=== PATIENT | female | born 1985 | race Hispanic/Latino ===

== ENCOUNTER 2018-01-18 08:13 | Emergency (ER) | payer MEDICARE ==
[2018-01-18 08:24] VITALS: BP 124/75
[2018-01-18] MEDS ORDERED: TYLENOL PO ONE (09:25)
--- NOTE | 2018-01-18 09:25 | Emergency Department Report ---
ED ENT HPI - General Chief complaint: Earache Stated complaint: RIGHT EAR PAIN Time Seen by Provider: 01/18/18 09:18 Source: patient Mode of arrival: Ambulatory Limitations: No Limitations - History of Present Illness Initial comments: 32-year-old female past medical history bipolar disorder, seizures presents with complaint of 2 weeks of persistent right toothache and right earache. Patient denies any pus or blood drainage from either mouth or ear. Patient states she does have a bad cavity in her rear molar on the right side. Denies any difficulty hearing. Denies any ear trauma. Patient is awake alert and oriented 3 speaking in full sentences. No trismus no drooling noted on exam. MD complaint: tooth pain, ear pain Onset/Timin -: week(s) Location: tooth # 1 - Significant dental fracture/cavity here. No abscess Severity scale (0 -10): 5 Quality: aching Consistency: constant Worsens with: eating Context- Dental: poor dental care Associated Symptoms: toothache - Related Data Previous Rx's Medication Instructions Recorded Last Taken Type Acetaminophen/Codeine [Tylenol 1 tab PO Q6H PRN #10 tab 01/18/18 Unknown Rx /Codeine # 3 tab] Amoxicillin [Trimox CAP] 500 mg PO Q8H #30 capsule 01/18/18 Unknown Rx Chlorhexidine Mouthwash [Peridex] 15 ml MM BID #1 bottle 01/18/18 Unknown Rx Ibuprofen [Motrin] 800 mg PO Q8HR PRN #20 tablet 01/18/18 Unknown Rx Allergies Allergy/AdvReac Type Severity Reaction Status Date / Time lamotrigine [From Lamictal] AdvReac Unknown Verified 01/18/18 08:25 topiramate [From Topamax] AdvReac Unknown Verified 01/18/18 08:24 ED Dental HPI - General Chief complaint: Earache Stated complaint: RIGHT EAR PAIN Time Seen by Provider: 01/18/18 09:18 Source: patient Mode of arrival: Ambulatory Limitations: No Limitations - Related Data Previous Rx's Medication Instructions Recorded Last Taken Type Acetaminophen/Codeine [Tylenol 1 tab PO Q6H PRN #10 tab 01/18/18 Unknown Rx /Codeine # 3 tab] Amoxicillin [Trimox CAP] 500 mg PO Q8H #30 capsule 01/18/18 Unknown Rx Chlorhexidine Mouthwash [Peridex] 15 ml MM BID #1 bottle 01/18/18 Unknown Rx Ibuprofen [Motrin] 800 mg PO Q8HR PRN #20 tablet 01/18/18 Unknown Rx Allergies Allergy/AdvReac Type Severity Reaction Status Date / Time lamotrigine [From Lamictal] AdvReac Unknown Verified 01/18/18 08:25 topiramate [From Topamax] AdvReac Unknown Verified 01/18/18 08:24 ED Review of Systems ROS: Stated complaint: RIGHT EAR PAIN Other details as noted in HPI Constitutional: denies: chills, fever Eyes: denies: eye pain, eye discharge, vision change ENT: ear pain, dental pain. denies: throat pain Respiratory: denies: cough, shortness of breath, wheezing Cardiovascular: denies: chest pain, palpitations Endocrine: no symptoms reported Gastrointestinal: denies: abdominal pain, nausea, diarrhea Genitourinary: denies: urgency, dysuria, discharge Musculoskeletal: denies: back pain, joint swelling, arthralgia Skin: denies: rash, lesions Neurological: denies: headache, weakness, paresthesias Psychiatric: denies: anxiety, depression Hematological/Lymphatic: denies: easy bleeding, easy bruising ED Past Medical Hx - Past Medical History Previous Medical History?: Yes Additional medical history: Hx of seizures, bi polar. - Surgical History Past Surgical History?: No - Social History Smoking Status: Current Every Day Smoker Substance Use Type: None - Medications Home Medications: Home Medications Medication Instructions Recorded Confirmed Last Taken Type Acetaminophen/Codeine [Tylenol 1 tab PO Q6H PRN #10 tab 01/18/18 Unknown Rx /Codeine # 3 tab] Amoxicillin [Trimox CAP] 500 mg PO Q8H #30 capsule 01/18/18 Unknown Rx Chlorhexidine Mouthwash [Peridex] 15 ml MM BID #1 bottle 01/18/18 Unknown Rx Ibuprofen [Motrin] 800 mg PO Q8HR PRN #20 tablet 01/18/18 Unknown Rx ED Physical Exam - General Limitations: No Limitations General appearance: alert, in no apparent distress - Head Head exam: Present: atraumatic, normocephalic - Eye Eye exam: Present: normal appearance, PERRL, EOMI - ENT ENT exam: Present: mucous membranes moist - Expanded ENT Exam Expanded TM/Canal exam: Erythema: Right TM, Bulging: Right TM Teeth exam: Present: dental caries, fractured tooth #, dental tenderness # 1 - Fractured, Dental Tenderness - Neck Neck exam: Present: normal inspection, full ROM - Respiratory Respiratory exam: Present: normal lung sounds bilaterally. Absent: respiratory distress - Cardiovascular Cardiovascular Exam: Present: regular rate, normal rhythm. Absent: systolic murmur, diastolic murmur, rubs, gallop - GI/Abdominal GI/Abdominal exam: Present: soft, normal bowel sounds - Extremities Exam Extremities exam: Present: normal inspection - Back Exam Back exam: Present: normal inspection - Neurological Exam Neurological exam: Present: alert, oriented X3 - Psychiatric Psychiatric exam: Present: normal affect, normal mood - Skin Skin exam: Present: warm, dry, intact, normal color. Absent: rash ED Course Vital Signs 01/18/18 08:21 Temperature 97.8 F Pulse Rate 78 Respiratory 18 Rate Blood Pressure 124/75 O2 Sat by Pulse 98 Oximetry ED Medical Decision Making - Medical Decision Making A/P: dental fracture, toothache, dental abscess, otitis media 1- Motrin when necessary, amoxicillin ten-day course, Orajel when necessary, Peridex mouthwash daily basis, short course codeine when necessary 2- I provided patient with information for multiple dental clinics to follow up and stressed the importance of dental follow-up as he has multiple cavities that require dental fixation or instrumentation 3- no clinical signs of facial abscess, no Oziel's angina, no induration or cellulitis of floor of mouth or tongue 4- patient able to tolerate by mouth before discharge 5- no signs of facial infection. Advised patient that if she does not take antibiotics with follow-up with a dentist as soon as possible that a can result in potentially serious or dangerous infection to develop in jaw or face. Patient states that he understood these instructions. I advised patient to return to the ED for any persistent unrelenting nausea or vomiting fever or chills or headaches. Critical care attestation.: If time is entered above; I have spent that time in minutes in the direct care of this critically ill patient, excluding procedure time. ED Disposition Clinical Impression: Toothache, Right ear pain Disposition: TO HOME OR SELFCARE Is pt being admited?: No Does the pt Need Aspirin: No Condition: Stable Instructions: Otitis Media (ED), Toothache (ED), Dental Caries (ED) Prescriptions: Acetaminophen/Codeine [Tylenol /Codeine # 3 tab] 1 tab PO Q6H PRN #10 tab PRN Reason: Pain Amoxicillin [Trimox CAP] 500 mg PO Q8H #30 capsule Chlorhexidine Mouthwash [Peridex] 15 ml MM BID #1 bottle Ibuprofen [Motrin] 800 mg PO Q8HR PRN #20 tablet PRN Reason: Pain Referrals: [facility] [Provider Group] - 3-5 Days MAXX MONTELONGO MD [Staff Physician] - 3-5 Days [facility] [Outside] - 3-5 Days Forms: Work/School Release Form(ED) Time of Disposition: 09:30
== END 2018-01-18 09:44 | disposition home or self-care (01) ==
LOC: ED 08:13
DX: K08.89 Other specified disorders of teeth and supporting structures (principal); H92.01 Otalgia, right ear; F31.9 Bipolar disorder, unspecified; F17.200 Nicotine dependence, unspecified, uncomplicated; Z88.8 Allergy status to other drugs, medicaments and biological substances
CPT/HCPCS: 99282

== ENCOUNTER 2018-01-20 09:56 | Emergency (ER) | payer MEDICARE ==
[2018-01-20] MEDS ORDERED: KEPPRA 1,000 MG/NS 0.75% 100ML 1,000 MG/100 ML BAG IV ONE (10:52)
[2018-01-20] MEDS ORDERED: DILANTIN PO ONE (10:52)
--- NOTE | 2018-01-20 10:58 | Emergency Department Report ---
ED Seizure HPI - General Chief Complaint: Seizure Stated Complaint: SEIZURE Time Seen by Provider: 01/20/18 10:44 Source: EMS Mode of arrival: Stretcher Limitations: No Limitations - History of Present Illness Initial Comments: 32-year-old female history of seizure disorder states ran out of her Keppra and Dilantin 30 days ago here for evaluation of possible seizure. She denies trauma history was that she did have one witnessed tonic-clonic seizure. She denies any headache neck pain chest pain back pain, pain or other complaints she is awake alert oriented 3 at this time stating that she ran out of her seizure medicine she doesn't have follow-up Dr. MACDONALD Complaint: seizure, possible seizure -: Gradual, hour(s) Description of Episode: loss of consciousness, tonic-clonic movement Seizure History: known seizure disorder Possible Precipitating Event: other (noncompliance) Associated Symptoms: denies other symptoms, other (denies trauma). denies: chest pain, confusion, cough, diaphoresis, fever/chills, loss of appetite, malaise, rash, shortness of breath, syncope, weakness, tongue injury, shoulder dislocation - Related Data Previous Rx's Medication Instructions Recorded Last Taken Type Acetaminophen/Codeine [Tylenol 1 tab PO Q6H PRN #10 tab 01/18/18 Unknown Rx /Codeine # 3 tab] Amoxicillin [Trimox CAP] 500 mg PO Q8H #30 capsule 01/18/18 Unknown Rx Chlorhexidine Mouthwash [Peridex] 15 ml MM BID #1 bottle 01/18/18 Unknown Rx Ibuprofen [Motrin] 800 mg PO Q8HR PRN #20 tablet 01/18/18 Unknown Rx Phenytoin (25 mg/ml) [Dilantin] 100 mg PO Q8HR #30 tab 01/20/18 Unknown Rx levETIRAcetam [Keppra XR TAB] 1,000 mg PO QDAY #30 tab.er.24h 01/20/18 Unknown Rx Allergies Allergy/AdvReac Type Severity Reaction Status Date / Time lamotrigine [From Lamictal] AdvReac Unknown Verified 01/18/18 08:25 topiramate [From Topamax] AdvReac Unknown Verified 01/18/18 08:24 ED Review of Systems ROS: Stated complaint: SEIZURE Other details as noted in HPI Comment: All other systems reviewed and negative Constitutional: denies: diaphoresis, fever, malaise Eyes: denies: eye discharge, vision change ENT: denies: dental pain, hearing loss, epistaxis Respiratory: denies: cough, orthopnea, shortness of breath, SOB with exertion, SOB at rest, stridor Cardiovascular: denies: chest pain, palpitations, dyspnea on exertion, orthopnea Gastrointestinal: denies: abdominal pain, nausea, vomiting, diarrhea, constipation, hematemesis, melena Neurological: denies: headache, weakness, numbness, paresthesias, confusion, abnormal gait, vertigo Hematological/Lymphatic: denies: easy bruising ED Past Medical Hx - Past Medical History Hx CVA: Yes (no deficits) Hx Heart Attack/AMI: Yes Hx Seizures: Yes Hx Psychiatric Treatment: (anxiety) Additional medical history: Hx of seizures, bi polar. - Social History Smoking Status: Current Every Day Smoker Substance Use Type: Alcohol, Marijuana - Medications Home Medications: Home Medications Medication Instructions Recorded Confirmed Last Taken Type Acetaminophen/Codeine [Tylenol 1 tab PO Q6H PRN #10 tab 01/18/18 Unknown Rx /Codeine # 3 tab] Amoxicillin [Trimox CAP] 500 mg PO Q8H #30 capsule 01/18/18 Unknown Rx Chlorhexidine Mouthwash [Peridex] 15 ml MM BID #1 bottle 01/18/18 Unknown Rx Ibuprofen [Motrin] 800 mg PO Q8HR PRN #20 tablet 01/18/18 Unknown Rx Phenytoin (25 mg/ml) [Dilantin] 100 mg PO Q8HR #30 tab 01/20/18 Unknown Rx levETIRAcetam [Keppra XR TAB] 1,000 mg PO QDAY #30 tab.er.24h 01/20/18 Unknown Rx ED Physical Exam - General Limitations: No Limitations General appearance: alert, in no apparent distress, anxious - Head Head exam: Present: atraumatic, normocephalic - Eye Eye exam: Present: normal appearance, PERRL, EOMI - ENT ENT exam: Present: normal exam, normal orophraynx - Neck Neck exam: Present: normal inspection. Absent: tenderness, meningismus - Respiratory Respiratory exam: Present: normal lung sounds bilaterally. Absent: respiratory distress, wheezes, rales, rhonchi, stridor - Cardiovascular Cardiovascular Exam: Present: regular rate, normal rhythm - GI/Abdominal GI/Abdominal exam: Present: soft. Absent: distended, tenderness, guarding, rebound, rigid, mass, pulsatile mass - Extremities Exam Extremities exam: Present: normal inspection, normal capillary refill. Absent: pedal edema, joint swelling, calf tenderness - Back Exam Back exam: Present: normal inspection, full ROM. Absent: tenderness, CVA tenderness (R), CVA tenderness (L), muscle spasm, paraspinal tenderness, vertebral tenderness, rash noted - Neurological Exam Neurological exam: Present: alert, oriented X3, CN II-XII intact. Absent: motor sensory deficit (no trauma) ED Course Vital Signs 01/20/18 01/20/18 09:57 10:15 Temperature 98.7 F Pulse Rate 97 H Respiratory 18 18 Rate Blood Pressure 126/87 O2 Sat by Pulse 98 98 Oximetry ED Medical Decision Making - Lab Data Result diagrams: 01/20/18 11:17 01/20/18 11:17 - Medical Decision Making Patient was loaded with Keppra and Dilantin she will be given refills on those. She is not suicidal or homicidal but is saying that she has intermittent depression is requesting mental health follow-up. She will also be given a primary care physician for follow-up. She had no signs of trauma laboratory studies were essentially unremarkable she did have a mildly elevated white count but is not thought to be due to infection. She has no stiff neck she is not toxic there is no headache this does not appear to be annon infectious leukocytosis but does appear to be a stress-related she is stable for a outpt follow-up Critical care attestation.: If time is entered above; I have spent that time in minutes in the direct care of this critically ill patient, excluding procedure time. ED Disposition Clinical Impression: Recurrent seizures, Noncompliance Disposition: DC-01 TO HOME OR SELFCARE Is pt being admited?: No Condition: Stable Instructions: Recurrent Seizures Adult (ED) Additional Instructions: Return for alarming symptoms take her medicines see the doctor listed he will need to see a neurologist of your choice Prescriptions: levETIRAcetam [Keppra XR TAB] 1,000 mg PO QDAY #30 tab.er.24h Phenytoin (25 mg/ml) [Dilantin] 100 mg PO Q8HR #30 tab Referrals: PRIMARY CAREMD [Primary Care Provider] - 3-5 Days MARIE SANDERS MD [Staff Physician] - 3-5 Days Time of Disposition: 12:59
[2018-01-20 11:36] LABS: Basophils % (Auto) 0.3 % (0.0-1.8); Hemoglobin 13.4 gm/dl (10.1-14.3); Lymphocytes # (Auto) 2.6 K/mm3 (1.2-5.4); Lymphocytes % (Auto) 19.3 % (13.4-35.0); Mean Corpuscular HGB Conc 33 % (30-34); Mean Corpuscular Hemoglobin 28 pg (28-32); Mean Corpuscular Volume 85 fl (79-97); Monocytes # (Auto) 1.1 K/mm3 (0.0-0.8); Monocytes % (Auto) 8.3 % (0.0-7.3); Platelet Count 317 K/mm3 (140-440); Red Blood Count 4.84 M/mm3 (3.65-5.03); Red Cell Distribution Width 14.4 % (13.2-15.2)
[2018-01-20 11:58] LABS: Alanine Aminotransferase 14 units/L (7-56); Albumin 4.3 g/dL (3.9-5); BUN/Creatinine Ratio 13; Blood Urea Nitrogen 12 mg/dL (7-17); Calcium 9.9 mg/dL (8.4-10.2); Hemolysis Index 2
[2018-01-20 13:21] VITALS: BP 142/92
== END 2018-01-20 13:20 | disposition home or self-care (01) ==
LOC: ED 09:56
DX: G40.909 Epilepsy, unspecified, not intractable, without status epilepticus (principal); I25.2 Old myocardial infarction; F17.200 Nicotine dependence, unspecified, uncomplicated; F12.10 Cannabis abuse, uncomplicated; Z88.8 Allergy status to other drugs, medicaments and biological substances
CPT/HCPCS: 36415; 80053; 85025; 93005; 93010; 96365; 99283; J1953

== ENCOUNTER 2018-01-21 19:42 | Emergency (ER) | payer MEDICARE ==
[2018-01-21] MEDS ORDERED: ATIVAN ONE (20:19)
[2018-01-21] MEDS ORDERED: ATIVAN IM ONE (20:28)
--- NOTE | 2018-01-21 20:37 | Emergency Department Report ---
ED Psych HPI - General Chief Complaint: Psych Stated Complaint: MH EVAL Time Seen by Provider: 01/21/18 20:31 Source: patient, EMS Mode of arrival: Stretcher - History of Present Illness Initial Comments: Here yesterday for seizures back today states that her boyfriend's pain deported she has a history of depression anxiety posttraumatic stress bipolar and schizophrenia with multiple previous admits at [facility] and [facility]. She says she is having a nervous breakdown. She says she needs to be committed she is worried she might hurt herself or someone else she does admit to noncompliance with her meds which are lithium Zyprexa Klonopin and Zoloft N [place] she recently started her seizure meds Dilantidanielle and Eileen MACDONALD Complaint: suicidal ideation, feels depressed Associated Psychiatric Symptoms: auditory hallucinations Context: significant life stressor - Related Data Previous Rx's Medication Instructions Recorded Last Taken Type Acetaminophen/Codeine [Tylenol 1 tab PO Q6H PRN #10 tab 01/18/18 Unknown Rx /Codeine # 3 tab] Amoxicillin [Trimox CAP] 500 mg PO Q8H #30 capsule 01/18/18 Unknown Rx Chlorhexidine Mouthwash [Peridex] 15 ml MM BID #1 bottle 01/18/18 Unknown Rx Ibuprofen [Motrin] 800 mg PO Q8HR PRN #20 tablet 01/18/18 Unknown Rx Phenytoin (25 mg/ml) [Dilantin] 100 mg PO Q8HR #30 tab 01/20/18 Unknown Rx Phenytoin [Dilantin] 500 mg PO BID #30 capsule 01/20/18 Unknown Rx levETIRAcetam [Keppra XR TAB] 1,000 mg PO QDAY #30 tab.er.24h 01/20/18 Unknown Rx Allergies Allergy/AdvReac Type Severity Reaction Status Date / Time lamotrigine [From Lamictal] AdvReac Unknown Verified 01/18/18 08:25 topiramate [From Topamax] AdvReac Unknown Verified 01/18/18 08:24 ED Review of Systems ROS: Stated complaint: MH EVAL Other details as noted in HPI Comment: Unobtainable due to pts medical conditions ED Past Medical Hx - Past Medical History Hx CVA: Yes (no deficits) Hx Heart Attack/AMI: Yes Hx Seizures: Yes Hx Psychiatric Treatment: Yes (anxiety, bipolar, schizophrenia, PTSD) Additional medical history: Hx of seizures, bi polar. - Social History Smoking Status: Current Every Day Smoker Substance Use Type: Alcohol, Marijuana - Medications Home Medications: Home Medications Medication Instructions Recorded Confirmed Last Taken Type Acetaminophen/Codeine [Tylenol 1 tab PO Q6H PRN #10 tab 01/18/18 Unknown Rx /Codeine # 3 tab] Amoxicillin [Trimox CAP] 500 mg PO Q8H #30 capsule 01/18/18 Unknown Rx Chlorhexidine Mouthwash [Peridex] 15 ml MM BID #1 bottle 01/18/18 Unknown Rx Ibuprofen [Motrin] 800 mg PO Q8HR PRN #20 tablet 01/18/18 Unknown Rx Phenytoin (25 mg/ml) [Dilantin] 100 mg PO Q8HR #30 tab 01/20/18 Unknown Rx Phenytoin [Dilantin] 500 mg PO BID #30 capsule 01/20/18 Unknown Rx levETIRAcetam [Keppra XR TAB] 1,000 mg PO QDAY #30 tab.er.24h 01/20/18 Unknown Rx ED Physical Exam - General Limitations: No Limitations General appearance: alert, in distress (anxious with dimple) - Head Head exam: Present: atraumatic, normocephalic - Eye Eye exam: Present: PERRL, EOMI - ENT ENT exam: Present: normal exam, normal orophraynx - Neck Neck exam: Present: normal inspection. Absent: tenderness, meningismus - Respiratory Respiratory exam: Present: normal lung sounds bilaterally. Absent: respiratory distress, wheezes, rales, rhonchi, stridor, chest wall tenderness, accessory muscle use, decreased breath sounds, prolonged expiratory - Cardiovascular Cardiovascular Exam: Present: normal rhythm, tachycardia - GI/Abdominal GI/Abdominal exam: Present: soft. Absent: distended, tenderness, guarding, rebound, rigid, mass, pulsatile mass - Extremities Exam Extremities exam: Present: normal capillary refill. Absent: pedal edema, joint swelling, calf tenderness - Back Exam Back exam: Present: normal inspection. Absent: CVA tenderness (L), muscle spasm - Neurological Exam Neurological exam: Present: alert, CN II-XII intact. Absent: motor sensory deficit - Psychiatric Psychiatric exam: Present: agitated, anxious, manic, other (acute psychosis with auditory hallucinations) - Skin Skin exam: Present: warm. Absent: urticaria, vesicles, petechiae, pallor, abrasion, ecchymosis ED Course Vital Signs 01/21/18 20:01 Temperature 98.4 F Pulse Rate 92 H Respiratory 22 Rate Blood Pressure 125/75 O2 Sat by Pulse 98 Oximetry ED Medical Decision Making - Lab Data Result diagrams: 01/21/18 20:26 01/21/18 20:26 - EKG Data -: EKG Interpreted by Me EKG shows normal: sinus rhythm - EKG Data Interpretation: nonspecific ST-T wave rose mary - Medical Decision Making Patient with elevated lithium level I.8 patient will need admitted for evaluation for lithium toxicity she is placed on 1013 for suicidal ideation and acute psychosis with gravely disabled. Case was discussed with Dr. Del Valle will evaluate for lithium toxicity for further evaluation and medical clearance Critical care attestation.: If time is entered above; I have spent that time in minutes in the direct care of this critically ill patient, excluding procedure time. ED Disposition Clinical Impression: [place] toxicity, Acute psychosis Disposition: DC-09 OP ADMIT IP TO THIS HOSP Is pt being admited?: Yes Condition: Stable Referrals: PRIMARY CARE, [Primary Care Provider] - 3-5 Days Time of Disposition: 23:28
[2018-01-21 20:39] LABS: Basophils # (Auto) 0.1 K/mm3 (0.0-0.1); Basophils % (Auto) 0.9 % (0.0-1.8); Eosinophils % (Auto) 0.1 % (0.0-4.3); Hematocrit 39.2 % (30.3-42.9); Hemoglobin 13.4 gm/dl (10.1-14.3); Lymphocytes # (Auto) 3.4 K/mm3 (1.2-5.4); Lymphocytes % (Auto) 37.3 % (13.4-35.0); Mean Corpuscular HGB Conc 34 % (30-34); Mean Corpuscular Hemoglobin 28 pg (28-32); Mean Corpuscular Volume 82 fl (79-97); Monocytes # (Auto) 0.8 K/mm3 (0.0-0.8); Monocytes % (Auto) 8.9 % (0.0-7.3); Platelet Count 287 K/mm3 (140-440); Red Blood Count 4.76 M/mm3 (3.65-5.03); Red Cell Distribution Width 14.8 % (13.2-15.2)
[2018-01-21] MEDS ORDERED: BENADRYL IM ONE ×2 (20:40→23:15)
[2018-01-21 20:53] LABS: BUN/Creatinine Ratio 18; Blood Urea Nitrogen 14 mg/dL (7-17); Calcium 9.1 mg/dL (8.4-10.2); Hemolysis Index 5
[2018-01-21] MEDS ORDERED: NACL 0.9% 1000 ML 1,000 ML IV ONE ×2 (23:12)
[2018-01-22] MEDS ORDERED: HALDOL IM ONE (00:40)
[2018-01-22 08:39] VITALS: BP 119/78
== END 2018-01-22 09:05 | disposition admitted as inpatient to this hospital (09) ==
LOC: ED 19:42
DX: T50.905A Adverse effect of unspecified drugs, medicaments and biological substances, initial encounter (principal); R56.9 Unspecified convulsions; Y92.89 Other specified places as the place of occurrence of the external cause; F23 Brief psychotic disorder; I25.2 Old myocardial infarction; F17.200 Nicotine dependence, unspecified, uncomplicated; F12.10 Cannabis abuse, uncomplicated
CPT/HCPCS: 36415; 80048; 80178; 84703; 85025; 93005; 93010; 96360; 96361; 96372; 99285; G0480; J1200; J1630; J2060; J7030; 80320

== ENCOUNTER 2018-03-14 07:51 | Emergency (ER) | payer MEDICARE ==
[2018-03-14] MEDS ORDERED: NACL 0.9% 1000 ML 1,000 ML IV ONE ×2 (07:57→08:48)
[2018-03-14 07:58] VITALS: BP 127/87
[2018-03-14 08:19] LABS: Bacteria,Urine 1+ /HPF (Negative); Bilirubin,Urine NEG (Negative); Blood,Urine NEG (Negative); Color,Urine Yellow (Yellow); Protein,Urine <15 mg/dL mg/dL (Negative); Urobilinogen,Urine < 2.0 mg/dL (<2.0); WBC,Urine < 1.0 /HPF (0.0-6.0)
[2018-03-14 08:40] LABS: Basophils # (Auto) 0.1 K/mm3 (0.0-0.1); Basophils % (Auto) 0.7 % (0.0-1.8); Lymphocytes # (Auto) 2.8 K/mm3 (1.2-5.4); Mean Corpuscular HGB Conc 35 % (30-34); Mean Corpuscular Hemoglobin 29 pg (28-32); Mean Corpuscular Volume 82 fl (79-97); Monocytes # (Auto) 0.8 K/mm3 (0.0-0.8); Monocytes % (Auto) 8.6 % (0.0-7.3); Platelet Count 441 K/mm3 (140-440); Red Blood Count 4.89 M/mm3 (3.65-5.03); Red Cell Distribution Width 16.7 % (13.2-15.2)
[2018-03-14 08:47] LABS: Alanine Aminotransferase 40 units/L (7-56); BUN/Creatinine Ratio 8; Blood Urea Nitrogen 5 mg/dL (7-17); Calcium 9.9 mg/dL (8.4-10.2); Hemolysis Index 72; Lipase 21 units/L (13-60)
[2018-03-14] MEDS ORDERED: ZOFRAN IV ONE (08:49)
--- NOTE | 2018-03-14 08:56 | Emergency Department Report ---
ED N/V/D HPI - General Chief complaint: Nausea/Vomiting/Diarrhea Stated complaint: ABDOMINAL PAIN Time Seen by Provider: 03/14/18 08:47 Source: patient, EMS Mode of arrival: Ambulatory Limitations: No Limitations - History of Present Illness Initial comments: 32-year-old woman presents with 2 day history of repeated bouts of nausea and vomiting. She's had no diarrhea to speak of. She's had a known ill contact, with similar symptoms, I reports that this friend was hospitalized, but has not spoken with her, does not know the reason for hospitalization exactly. She has minor left lower quadrant discomfort, which is mild and achy, nonradiating, been 3-4 out of 10, no flank pain, no back pain, but no fever chills or diaphoresis. She has no prior history of gastrointestinal problems, but past medical history is significant for seizure disorder, for which she takes levetiracetam as well as phenytoin, and reports that she has still been able to keep both of these medicines down, with last dose yesterday evening. She also has bipolar disorder , but has not been having any symptoms of depression, suicide, or manic behavior patterns. - Related Data Previous Rx's Medication Instructions Recorded Last Taken Type Acetaminophen/Codeine [Tylenol 1 tab PO Q6H PRN #10 tab 01/18/18 Unknown Rx /Codeine # 3 tab] Amoxicillin [Trimox CAP] 500 mg PO Q8H #30 capsule 01/18/18 Unknown Rx Chlorhexidine Mouthwash [Peridex] 15 ml MM BID #1 bottle 01/18/18 Unknown Rx Ibuprofen [Motrin] 800 mg PO Q8HR PRN #20 tablet 01/18/18 Unknown Rx Phenytoin (25 mg/ml) [Dilantin] 100 mg PO Q8HR #30 tab 01/20/18 Unknown Rx Phenytoin [Dilantin] 500 mg PO BID #30 capsule 01/20/18 Unknown Rx levETIRAcetam [Keppra XR TAB] 1,000 mg PO QDAY #30 tab.er.24h 01/20/18 Unknown Rx Omeprazole 20 mg PO DAILY #14 tablet. 03/14/18 Unknown Rx Ondansetron [Zofran ODT TAB] 8 mg PO Q8HR PRN #10 tab.rapdis 03/14/18 Unknown Rx Allergies Allergy/AdvReac Type Severity Reaction Status Date / Time lamotrigine [From Lamictal] AdvReac Unknown Verified 01/18/18 08:25 topiramate [From Topamax] AdvReac Unknown Verified 01/18/18 08:24 ED Review of Systems ROS: Stated complaint: ABDOMINAL PAIN Other details as noted in HPI Comment: All other systems reviewed and negative Constitutional: no symptoms reported Eyes: denies: eye pain, eye discharge, vision change ENT: denies: ear pain, throat pain Respiratory: denies: cough, shortness of breath, wheezing Cardiovascular: denies: chest pain, palpitations Endocrine: no symptoms reported Gastrointestinal: abdominal pain, nausea, vomiting (left lower quadrant, mild and achy). denies: diarrhea, hematemesis, melena, hematochezia Genitourinary: denies: urgency, dysuria Musculoskeletal: denies: back pain Skin: denies: rash Neurological: denies: headache, weakness, paresthesias Psychiatric: denies: anxiety, depression Hematological/Lymphatic: denies: easy bleeding, easy bruising ED Past Medical Hx - Past Medical History Previous Medical History?: Yes Hx CVA: Yes (no deficits) Hx Heart Attack/AMI: Yes Hx Seizures: Yes Hx Psychiatric Treatment: Yes (anxiety, bipolar, schizophrenia, PTSD) Additional medical history: Hx of seizures, bi polar. - Surgical History Past Surgical History?: Yes Additional Surgical History: Right oophorectomy - Social History Smoking Status: Current Every Day Smoker Substance Use Type: None, Marijuana, Prescribed - Medications Home Medications: Home Medications Medication Instructions Recorded Confirmed Last Taken Type Acetaminophen/Codeine [Tylenol 1 tab PO Q6H PRN #10 tab 01/18/18 Unknown Rx /Codeine # 3 tab] Amoxicillin [Trimox CAP] 500 mg PO Q8H #30 capsule 01/18/18 Unknown Rx Chlorhexidine Mouthwash [Peridex] 15 ml MM BID #1 bottle 01/18/18 Unknown Rx Ibuprofen [Motrin] 800 mg PO Q8HR PRN #20 tablet 01/18/18 Unknown Rx Phenytoin (25 mg/ml) [Dilantin] 100 mg PO Q8HR #30 tab 01/20/18 Unknown Rx Phenytoin [Dilantin] 500 mg PO BID #30 capsule 01/20/18 Unknown Rx levETIRAcetam [Keppra XR TAB] 1,000 mg PO QDAY #30 tab.er.24h 01/20/18 Unknown Rx Omeprazole 20 mg PO DAILY #14 tablet. 03/14/18 Unknown Rx Ondansetron [Zofran ODT TAB] 8 mg PO Q8HR PRN #10 tab.rapdis 03/14/18 Unknown Rx ED Physical Exam - General Limitations: No Limitations General appearance: alert, in no apparent distress - Head Head exam: Present: atraumatic - Eye Eye exam: Present: PERRL, EOMI - ENT ENT exam: Present: normal exam, mucous membranes dry - Neck Neck exam: Present: normal inspection, full ROM. Absent: tenderness, meningismus - Respiratory Respiratory exam: Present: normal lung sounds bilaterally. Absent: wheezes, rales, rhonchi, chest wall tenderness - Cardiovascular Cardiovascular Exam: Present: regular rate, normal heart sounds - GI/Abdominal GI/Abdominal exam: Present: soft, tenderness (minimal discomfort to palpation left lower quadrant, without rebound), normal bowel sounds. Absent: guarding, rebound - Rectal Rectal exam: Present: deferred - Extremities Exam Extremities exam: Present: normal inspection, full ROM. Absent: tenderness - Back Exam Back exam: Present: normal inspection. Absent: CVA tenderness (R), CVA tenderness (L) - Neurological Exam Neurological exam: Present: alert, oriented X3, CN II-XII intact. Absent: motor sensory deficit - Psychiatric Psychiatric exam: Present: normal affect, normal mood. Absent: agitated, anxious, manic - Skin Skin exam: Present: warm, dry. Absent: cyanosis, diaphoretic, petechiae, ecchymosis ED Course Vital Signs 03/14/18 03/14/18 07:52 10:02 Temperature 36.6 C Pulse Rate 82 Respiratory 18 18 Rate Blood Pressure 127/87 O2 Sat by Pulse 96 98 Oximetry - Reevaluation(s) Reevaluation #1: 03/14/18 10:46 Patient felt improved with cessation of nausea after treatment, and was given most of a liter of normal saline, reported this made her cold, and discontinued at her request due to this. ED Medical Decision Making - Lab Data Result diagrams: 03/14/18 08:12 03/14/18 08:12 - Medical Decision Making Patient has been stable during her emergency department visit, has had relief of symptoms, with no further nausea or vomiting, and I believe she is stable for discharge home, with oral rehydration with electrolyte rich fluids. We will give prescription for antacids and antiemetics, with rest, and follow-up with doctor in 2-3 days. Critical Care Time: No Critical care attestation.: If time is entered above; I have spent that time in minutes in the direct care of this critically ill patient, excluding procedure time. ED Disposition Clinical Impression: Acute gastroenteritis Disposition: TO HOME OR SELFCARE Is pt being admited?: No Does the pt Need Aspirin: No Condition: Stable Instructions: Gastroenteritis (ED), Dehydration (ED) Prescriptions: Omeprazole 20 mg PO DAILY #14 tablet. Ondansetron [Zofran ODT TAB] 8 mg PO Q8HR PRN #10 tab.rapdis PRN Reason: Nausea Time of Disposition: 10:50
== END 2018-03-14 11:00 | disposition home or self-care (01) ==
LOC: ED 07:51
DX: K52.9 Noninfective gastroenteritis and colitis, unspecified (principal); I25.2 Old myocardial infarction; F20.9 Schizophrenia, unspecified; F17.200 Nicotine dependence, unspecified, uncomplicated; F31.9 Bipolar disorder, unspecified; G40.909 Epilepsy, unspecified, not intractable, without status epilepticus; F12.10 Cannabis abuse, uncomplicated; Z86.73 Personal history of transient ischemic attack (TIA), and cerebral infarction without residual deficits
CPT/HCPCS: 36415; 80053; 80177; 80185; 81001; 83690; 85025; 96361; 96374; 99284; J2405; J7030

== ENCOUNTER 2018-10-25 19:45 | Emergency (ER) | payer MEDICARE ==
[2018-10-25 20:31] LABS: Basophils # (Auto) 0.1 K/mm3 (0.0-0.1); Basophils % (Auto) 0.9 % (0.0-1.8); Hematocrit 34.4 % (30.3-42.9); Lymphocytes # (Auto) 2.2 K/mm3 (1.2-5.4); Lymphocytes % (Auto) 30.2 % (13.4-35.0); Mean Corpuscular HGB Conc 35 % (30-34); Mean Corpuscular Volume 78 fl (79-97); Monocytes # (Auto) 0.6 K/mm3 (0.0-0.8); Monocytes % (Auto) 8.2 % (0.0-7.3); Platelet Count 313 K/mm3 (140-440); Red Blood Count 4.45 M/mm3 (3.65-5.03); Red Cell Distribution Width 18.9 % (13.2-15.2)
[2018-10-25 20:49] LABS: Alanine Aminotransferase 23 units/L (7-56); BUN/Creatinine Ratio 11; Blood Urea Nitrogen 8 mg/dL (7-17); Calcium 9.6 mg/dL (8.4-10.2); Hemolysis Index 4
[2018-10-25] MEDS ORDERED: SUBLIMAZE IV ONE ×2 (21:29→23:17)
[2018-10-25] MEDS ORDERED: NACL 0.9% 1000 ML 1,000 ML IV ONE (21:29)
[2018-10-25] MEDS ORDERED: ZOFRAN IV ONE (21:29)
[2018-10-25] MEDS ORDERED: BENADRYL IV ONE (21:30)
--- NOTE | 2018-10-25 21:34 | Emergency Department Report ---
HPI - General Chief Complaint: Abdominal Pain Time Seen by Provider: 10/25/18 21:23 - HPI HPI: Room 6 The patient is a 33-year-old female presented with a chief complaint vaginal bleeding, pelvic pain and back pain. She states she has not had her menses in approximately 5 months until approximately 4 days ago she began having vaginal bleeding. Patient states she did not approximate 4 pads per day. Patient states over the past 2 days she's had pain in the right groin and right back. Patient describes her pain as a pressure. Patient denies dysuria or fever. Patient denies nausea or vomiting. Patient gets her pain a score of 9/10 Location: [See above] Duration: [See above] Quality: Pressure Severity: 9/10 Modifying factors: [see above] Context: [see above] Mode of transportation: [not driving] ED Past Medical Hx - Past Medical History Hx CVA: Yes (no deficits) Hx Heart Attack/AMI: Yes Hx Seizures: Yes Hx Psychiatric Treatment: Yes (anxiety, bipolar, schizophrenia, PTSD) Additional medical history: Hx of seizures, bi polar. - Surgical History Additional Surgical History: Right oophorectomy - Family History Family history: no significant - Social History Smoking Status: Current Every Day Smoker (1 pack per day) Substance Use Type: Alcohol (occasional), Methamphetamines - Medications Home Medications: Home Medications Medication Instructions Recorded Confirmed Last Taken Type Acetaminophen/Codeine [Tylenol 1 tab PO Q6H PRN #10 tab 01/18/18 Unknown Rx /Codeine # 3 tab] Amoxicillin [Trimox CAP] 500 mg PO Q8H #30 capsule 01/18/18 Unknown Rx Chlorhexidine Mouthwash [Peridex] 15 ml MM BID #1 bottle 01/18/18 Unknown Rx Ibuprofen [Motrin] 800 mg PO Q8HR PRN #20 tablet 01/18/18 Unknown Rx Phenytoin (25 mg/ml) [Dilantin] 100 mg PO Q8HR #30 tab 01/20/18 Unknown Rx Phenytoin [Dilantin] 500 mg PO BID #30 capsule 01/20/18 Unknown Rx levETIRAcetam [Keppra XR TAB] 1,000 mg PO QDAY #30 tab.er.24h 01/20/18 Unknown Rx Omeprazole 20 mg PO DAILY #14 tablet. 03/14/18 Unknown Rx Ondansetron [Zofran ODT TAB] 8 mg PO Q8HR PRN #10 tab.rapdis 03/14/18 Unknown Rx HYDROcodone/APAP 5-325 [[place] 1 - 2 each PO Q6HR PRN #14 tablet 10/25/18 Unknown Rx 5/325] Ibuprofen [Motrin 800 MG tab] 800 mg PO Q8HR PRN #20 tablet 10/25/18 Unknown Rx medroxyPROGESTERone ACETATE 5 mg PO QDAY #10 tablet 10/25/18 Unknown Rx [Provera] ED Review of Systems ROS: Stated complaint: RT SIDE PAIN/BLEEDING Other details as noted in HPI Constitutional: denies: fever Eyes: denies: eye pain ENT: denies: throat pain Respiratory: no symptoms reported Cardiovascular: denies: chest pain Endocrine: no symptoms reported Gastrointestinal: abdominal pain. denies: nausea, vomiting Genitourinary: abnormal menses. denies: dysuria Musculoskeletal: back pain Neurological: denies: headache Physical Exam - Physical Exam Vital Signs: Vital Signs 10/25/18 19:55 Temperature 98.1 F Pulse Rate 107 H Respiratory 16 Rate Blood Pressure 148/82 O2 Sat by Pulse 98 Oximetry Physical Exam: GENERAL: The patient is well-developed well-nourished female lying on stretcher not appearing to be in acute distress. [] HEENT: Normocephalic. Atraumatic. Extraocular motions are intact. Patient has moist mucous membranes. NECK: Supple. Trachea midline CHEST/LUNGS: Clear to auscultation. There is no respiratory distress noted. HEART/CARDIOVASCULAR: Regular. There is no tachycardia. There is no gallop rub or murmur. ABDOMEN: Abdomen is soft, with mild discomfort to palpation in the right lower quadrant. No rebound or guarding. Patient has normal bowel sounds. There is no abdominal distention. SKIN: There is no rash. There is no edema. There is no diaphoresis. NEURO: The patient is awake, alert, and oriented. The patient is cooperative. The patient has normal speech MUSCULOSKELETAL: There is no evidence of acute injury. ED Course Vital Signs 10/25/18 19:55 Temperature 98.1 F Pulse Rate 107 H Respiratory 16 Rate Blood Pressure 148/82 O2 Sat by Pulse 98 Oximetry ED Medical Decision Making - Lab Data Result diagrams: 10/25/18 20:11 10/25/18 20:11 Laboratory Tests 10/25/18 10/25/18 10/25/18 20:11 20:11 20:11 WBC 7.1 RBC 4.45 Hgb 12.0 Hct 34.4 MCV 78 L MCH 27 L MCHC 35 H RDW 18.9 H Plt Count 313 Lymph % (Auto) 30.2 [place] % (Auto) 8.2 H Eos % (Auto) 0.0 Baso % (Auto) 0.9 Lymph # 2.2 [place] # 0.6 Eos # 0.0 Baso # 0.1 Seg Neutrophils % 60.7 Seg Neutrophils # 4.3 Sodium 140 Potassium 4.2 Chloride 103.6 Carbon Dioxide 22 Anion Gap 19 BUN 8 Creatinine 0.7 Estimated GFR > 60 BUN/Creatinine Ratio 11 Glucose 113 H Calcium 9.6 Total Bilirubin 0.20 AST 18 ALT 23 Alkaline Phosphatase 77 Total Creatine Kinase Total Protein 7.3 Albumin 4.0 Albumin/Globulin Ratio 1.2 HCG, Qual Negative Urine Color Urine Turbidity Urine pH Ur Specific [place] Urine Protein Urine Glucose (UA) Urine Ketones Urine Blood Urine Nitrite Urine Bilirubin Urine Urobilinogen Ur Leukocyte Esterase Urine WBC (Auto) Urine RBC (Auto) U Epithel Cells (Auto) Urine Bacteria (Auto) Urine Mucus Phenytoin 10/25/18 10/25/18 10/25/18 21:07 22:04 22:25 WBC RBC Hgb Hct MCV MCH MCHC RDW Plt Count Lymph % (Auto) [place] % (Auto) Eos % (Auto) Baso % (Auto) Lymph # [place] # Eos # Baso # Seg Neutrophils % Seg Neutrophils # Sodium Potassium Chloride Carbon Dioxide Anion Gap BUN Creatinine Estimated GFR BUN/Creatinine Ratio Glucose Calcium Total Bilirubin AST ALT Alkaline Phosphatase Total Creatine Kinase 46 Total Protein Albumin Albumin/Globulin Ratio HCG, Qual Urine Color Yellow Urine Turbidity Slightly-cloudy Urine pH 5.0 Ur Specific [place] 1.027 Urine Protein 30 mg/dl Urine Glucose (UA) Neg Urine Ketones Neg Urine Blood Lg Urine Nitrite Neg Urine Bilirubin Neg Urine Urobilinogen < 2.0 Ur Leukocyte Esterase Neg Urine WBC (Auto) 3.0 Urine RBC (Auto) 4.0 U Epithel Cells (Auto) 14.0 H Urine Bacteria (Auto) 1+ Urine Mucus Few Phenytoin 0.8 L - Radiology Data Radiology results: report reviewed (CT abdomen and pelvis, pelvic ultrasound), image reviewed (CT abdomen and pelvis, pelvic ultrasound) Findings [address] [address] Cat Scan Report Signed Patient: GABRIELLA WEEKS MR#: [id number] : 1985 Acct:[id number] Age/Sex: 33 / F ADM Date: 10/25/18 Loc: ED Attending Dr: Ordering Physician: BRIDGET DUNCAN MD Date of Service: 10/25/18 Procedure(s): CT abdomen pelvis wo con Accession Number(s): [id number] cc: BRIDGET DUNCAN MD FINAL REPORT EXAM: CT ABDOMEN PELVIS WO CON HISTORY: right flank pain TECHNIQUE: CT abdomen and pelvis without contrast PRIORS: None. FINDINGS: No acute abnormality identified in the lung bases. No focal abnormality identified within the liver parenchyma. The spleen demonstrates normal size and attenuation. No pancreatic abnormalities seen. There is horseshoe kidney present. No evidence for nephrolithiasis or hydronephrosis The adrenal glands are unremarkable. Abdominal aorta is normal in caliber. No pathologically enlarged lymph nodes are identified. No signs of free fluid or free air No evidence of small bowel dilatation. No evidence of colonic dilatation. No pericolonic inflammatory change seen. Appendix is identified and is unremarkable. IMPRESSION: Horseshoe kidney noted No evidence for obstructive uropathy Transcribed By: [facility] Dictated By: LISY ZAMUDIO MD Electronically Authenticated By: LISY ZAMUDIO MD Signed Date/Time: 10/25/182306 DD/ 04 TD/TT: 10/25/182304 [address] [address] Ultrasound Report Signed Patient: GABRIELLA WEEKS MR#: [id number] : 1985 Acct:[id number] Age/Sex: 33 / F ADM Date: 10/25/18 Loc: ED Attendjonah gonzales Dr: Ordering Physician: BRIDGET DUNCAN MD Date of Service: 10/25/18 Procedure(s): US transvaginal Accession Number(s): [id number] cc: BRIDGET DUNCAN MD FINAL REPORT EXAM: US TRANSVAGINAL HISTORY: vaginal bleeding, right pelvic pain TECHNIQUE: Ultrasound pelvis transvaginal PRIORS: None. FINDINGS: Uterus measures 7.8 x 4.6 x 4.7 centimeters. No focal myometrial abnormality identified. Endometrial thickness is 0.7 centimeters Left ovary is 2.4 x 1.7 x 2.5 centimeters. Normal vascular flow seen on pulsed and color Doppler evaluation The right ovary was not identified sonographically. There is history of prior right oophorectomy No free fluid identified within the cul-de-sac IMPRESSION: Status post right oophorectomy Normal sonographic appearance of the left ovary and uterus Transcribed By: QUYNH Dictated By: LISY ZAMUDIO MD Electronically Authenticated By: LISY ZAMUDIO MD Signed Date/Time: 10/25/182337 DD/ 35 TD/TT: 10/25/182335 - Medical Decision Making Patient also given a prescription for Provera but admonished not to begin prescription yet unless her vaginal bleeding increases over the next 3 days - Differential Diagnosis menorrhagia, renal colic, UTI, uterine fibroid, ovarian cyst Critical care attestation.: If time is entered above; I have spent that time in minutes in the direct care of this critically ill patient, excluding procedure time. ED Disposition Clinical Impression: Acute abdominal pain, Menses painful Disposition: - TO HOME OR SELFCARE Is pt being admited?: No Does the pt Need Aspirin: No Condition: Stable Instructions: Abdominal Pain (ED) Additional Instructions: Return to the emergency department immediately should you develop worsening symptoms, fever, inability to tolerate food or liquid or any other concerns. Prescriptions: HYDROcodone/APAP 5-325 [[place] 5/325] 1 - 2 each PO Q6HR PRN #14 tablet PRN Reason: Pain Ibuprofen [Motrin 800 MG tab] 800 mg PO Q8HR PRN #20 tablet PRN Reason: Pain, Moderate (4-6) medroxyPROGESTERone ACETATE [Provera] 5 mg PO QDAY #10 tablet Referrals: GISELA CAMERON MD [Primary Care Provider] - 3-5 Days your, IT TEACHER [Other] - 3-5 Days Time of Disposition: 23:50
[2018-10-25 21:59] LABS: Bacteria,Urine 1+ /HPF (Negative); Bilirubin,Urine NEG (Negative); Blood,Urine LG (Negative); Color,Urine Yellow (Yellow); Mucus,Urine FEW /HPF; Urobilinogen,Urine < 2.0 mg/dL (<2.0)
--- NOTE | 2018-10-25 23:07 | Cat Scan Report ---
FINAL REPORT EXAM: CT ABDOMEN PELVIS WO CON HISTORY: right flank pain TECHNIQUE: CT abdomen and pelvis without contrast PRIORS: None. FINDINGS: No acute abnormality identified in the lung bases. No focal abnormality identified within the liver parenchyma. The spleen demonstrates normal size and attenuation. No pancreatic abnormalities seen. There is horseshoe kidney present. No evidence for nephrolithiasis or hydronephrosis The adrenal glands are unremarkable. Abdominal aorta is normal in caliber. No pathologically enlarged lymph nodes are identified. No signs of free fluid or free air No evidence of small bowel dilatation. No evidence of colonic dilatation. No pericolonic inflammatory change seen. Appendix is identified an d is unremarkable. IMPRESSION: Horseshoe kidney noted No evidence for obstructive uropathy
--- NOTE | 2018-10-25 23:38 | Ultrasound Report ---
FINAL REPORT EXAM: US TRANSVAGINAL HISTORY: vaginal bleeding, right pelvic pain TECHNIQUE: Ultrasound pelvis transvaginal PRIORS: None. FINDINGS: Uterus measures 7.8 x 4.6 x 4.7 centimeters. No focal myometrial abnormality identified. Endometrial thickness is 0.7 centimeters Left ovary is 2.4 x 1.7 x 2.5 centimeters. Normal vascular flow seen on pulsed and color Doppler eval uation The right ovary was not identified sonographically. There is history of prior right oophorectomy No free fluid identified within the cul-de-sac IMPRESSION: Status post right oophorectomy Normal sonographic appearance of the left ovary and uterus
--- NOTE | 2018-10-25 23:39 | Ultrasound Report ---
FINAL REPORT EXAM: US PELVIS DUPLEX DOPPLER COMP HISTORY: vaginal bleeding, right pelvic pain TECHNIQUE: Ultrasound pelvis transabdominal PRIORS: None. FINDINGS: Uterus measures 7.8 x 4.6 x 4.7 centimeters. No focal myometrial abnormality identified. Endometrial thickness is 0.7 centimeters Left ovary is 2.4 x 1.7 x 2.5 centimeters. Normal vascular flow seen on pulsed and color Doppler eval uation The right ovary was not identified sonographically. There is history of prior right oophorectomy No free fluid identified within the cul-de-sac IMPRESSION: Status post right oophorectomy Normal sonographic appearance of the left ovary and uterus
[2018-10-26 00:06] VITALS: BP 122/74
== END 2018-10-26 00:06 | disposition home or self-care (01) ==
LOC: ED 19:45
DX: N94.6 Dysmenorrhea, unspecified (principal); F31.9 Bipolar disorder, unspecified; F41.9 Anxiety disorder, unspecified; F20.9 Schizophrenia, unspecified; F43.10 Post-traumatic stress disorder, unspecified; F17.200 Nicotine dependence, unspecified, uncomplicated; Z90.721 Acquired absence of ovaries, unilateral
CPT/HCPCS: 36415; 74176; 76830; 80053; 80185; 81001; 82550; 84703; 85025; 93005; 93010; 93975; 96374; 96375; 96376; 99284; J1200; J2405; J3010; J7030

== ENCOUNTER 2019-02-09 17:28 | Emergency (ER) | payer MEDICARE ==
[2019-02-09] MEDS ORDERED: TORADOL IV ONE (17:48)
--- NOTE | 2019-02-09 17:53 | Emergency Department Report ---
ED Seizure HPI - General Chief Complaint: Seizure Stated Complaint: SEIZURE/FALL Time Seen by Provider: 02/09/19 17:39 Source: patient, EMS Mode of arrival: Stretcher Limitations: No Limitations - History of Present Illness Initial Comments: 33-year-old female with a past history of obesity, CVA without residual deficits, seizures, PTSD, schizophrenia, and bipolar disorder presents to the hospital with complaints of fall and secondary seizure. Patient was walking around in [facility] when she slipped on oil on the floor. She fell backwards striking her head. When she sat up in case he is then had a seizure. Patient denies tongue laceration or urinary incontinence. She is compliant with her twice a day Dilantin 200 mg dose was last dosed this a.m. Patient complains of headache, lower back, and left knee pain that is moderate in intensity, co nstant, worse with movement. She denies neck pain, focal weakness, or focal numbness. Patient states she was just released from prison last night after being incarcerated for 3 months. - Related Data Previous Rx's Medication Instructions Recorded Last Taken Type Acetaminophen/Codeine [Tylenol 1 tab PO Q6H PRN #10 tab 01/18/18 Unknown Rx /Codeine # 3 tab] Amoxicillin [Trimox CAP] 500 mg PO Q8H #30 capsule 01/18/18 Unknown Rx Chlorhexidine Mouthwash [Peridex] 15 ml MM BID #1 bottle 01/18/18 Unknown Rx Ibuprofen [Motrin] 800 mg PO Q8HR PRN #20 tablet 01/18/18 Unknown Rx Phenytoin (25 mg/ml) [Dilantin] 100 mg PO Q8HR #30 tab 01/20/18 Unknown Rx Phenytoin [Dilantin] 500 mg PO BID #30 capsule 01/20/18 Unknown Rx levETIRAcetam [Keppra XR TAB] 1,000 mg PO QDAY #30 tab.er.24h 01/20/18 Unknown Rx Omeprazole 20 mg PO DAILY #14 tablet. 03/14/18 Unknown Rx Ondansetron [Zofran ODT TAB] 8 mg PO Q8HR PRN #10 tab.rapdis 03/14/18 Unknown Rx HYDROcodone/APAP 5-325 [[place] 1 - 2 each PO Q6HR PRN #14 tablet 10/25/18 Unknown Rx 5/325] Ibuprofen [Motrin 800 MG tab] 800 mg PO Q8HR PRN #20 tablet 10/25/18 Unknown Rx medroxyPROGESTERone ACETATE 5 mg PO QDAY #10 tablet 10/25/18 Unknown Rx [Provera] Ibuprofen [Motrin] 800 mg PO Q8HR PRN #30 tablet 02/09/19 Unknown Rx Phenytoin [Dilantin] 300 mg PO BID 30 Days capsule 02/09/19 Unknown Rx Allergies Allergy/AdvReac Type Severity Reaction Status Date / Time lamotrigine [From Lamictal] AdvReac Unknown Verified 01/18/18 08:25 topiramate [From Topamax] AdvReac Unknown Verified 01/18/18 08:24 ED Review of Systems ROS: Stated complaint: SEIZURE/FALL Other details as noted in HPI Comment: All other systems reviewed and negative ED Past Medical Hx - Past Medical History Previous Medical History?: Yes Hx CVA: Yes (no deficits) Hx Heart Attack/AMI: Yes Hx Seizures: Yes Hx Psychiatric Treatment: Yes (anxiety, bipolar, schizophrenia, PTSD) Additional medical history: Hx of seizures, bi polar. - Surgical History Past Surgical History?: Yes Additional Surgical History: Right oophorectomy - Social History Smoking Status: Current Every Day Smoker (1 pack per day) Substance Use Type: Alcohol (occasional), Methamphetamines - Medications Home Medications: Home Medications Medication Instructions Recorded Confirmed Last Taken Type Acetaminophen/Codeine [Tylenol 1 tab PO Q6H PRN #10 tab 01/18/18 Unknown Rx /Codeine # 3 tab] Amoxicillin [Trimox CAP] 500 mg PO Q8H #30 capsule 01/18/18 Unknown Rx Chlorhexidine Mouthwash [Peridex] 15 ml MM BID #1 bottle 01/18/18 Unknown Rx Ibuprofen [Motrin] 800 mg PO Q8HR PRN #20 tablet 01/18/18 Unknown Rx Phenytoin (25 mg/ml) [Dilantin] 100 mg PO Q8HR #30 tab 01/20/18 Unknown Rx Phenytoin [Dilantin] 500 mg PO BID #30 capsule 01/20/18 Unknown Rx levETIRAcetam [Keppra XR TAB] 1,000 mg PO QDAY #30 tab.er.24h 01/20/18 Unknown Rx Omeprazole 20 mg PO DAILY #14 tablet. 03/14/18 Unknown Rx Ondansetron [Zofran ODT TAB] 8 mg PO Q8HR PRN #10 tab.rapdis 03/14/18 Unknown Rx HYDROcodone/APAP 5-325 [[place] 1 - 2 each PO Q6HR PRN #14 tablet 10/25/18 Unknown Rx 5/325] Ibuprofen [Motrin 800 MG tab] 800 mg PO Q8HR PRN #20 tablet 10/25/18 Unknown Rx medroxyPROGESTERone ACETATE 5 mg PO QDAY #10 tablet 10/25/18 Unknown Rx [Provera] Ibuprofen [Motrin] 800 mg PO Q8HR PRN #30 tablet 02/09/19 Unknown Rx Phenytoin [Dilantin] 300 mg PO BID 30 Days capsule 02/09/19 Unknown Rx ED Physical Exam - General Limitations: No Limitations - Other Other exam information: General: No limitations, patient is alert in no acute distress Head exam: Atraumatic, normocephalic Eyes exam: Normal appearance, pupils equal reactive to light, extraocular movements intact ENT: Moist mucous membrane, normal oropharynx Neck exam: Normal inspection, full range of motion, no meningismus nontender, c- collar removed Respiratory exam: Clear to auscultation bilateral, no wheezes, rales, crackles Cardiovascular: Normal rate and rhythm Abdomen: Soft, nondistended, and nontender, with normal bowel sounds, no rebound, or guarding Extremity: Full range of motion normal inspection no deformity, medial left right knee pain with palpation Back: Normal Inspection, full range of motion, mid lower back tenderness without deformity, ecchymosis, step off Neurologic: Alert, oriented to self, place, month, and year, cranial nerves intact, no motor or sensory deficit Psychiatric: normal affect, normal mood Skin: Warm, dry, intact ED Course Vital Signs 02/09/19 02/09/19 17:44 19:28 Temperature 98.1 F 98.4 F Pulse Rate 75 88 Respiratory 17 16 Rate Blood Pressure 135/61 Blood Pressure 135/61 137/63 [Left] O2 Sat by Pulse 99 100 Oximetry ED Medical Decision Making - Lab Data Result diagrams: 02/09/19 18:06 02/09/19 18:06 Lab Results 02/09/19 02/09/19 02/09/19 Range/Units 18:06 18:06 18:06 WBC 5.9 (4.5-11.0) K/mm3 RBC 4.10 (3.65-5.03) M/mm3 Hgb 10.9 (10.1-14.3) gm/dl Hct 33.2 (30.3-42.9) % MCV 81 (79-97) fl MCH 27 L (28-32) pg MCHC 33 (30-34) % RDW 18.6 H (13.2-15.2) % Plt Count 290 (140-440) K/mm3 Lymph % (Auto) 25.7 (13.4-35.0) % [place] % (Auto) 8.8 H (0.0-7.3) % Eos % (Auto) 0.0 (0.0-4.3) % Baso % (Auto) 0.5 (0.0-1.8) % Lymph # 1.5 (1.2-5.4) K/mm3 [place] # 0.5 (0.0-0.8) K/mm3 Eos # 0.0 (0.0-0.4) K/mm3 Baso # 0.0 (0.0-0.1) K/mm3 Seg Neutrophils % 65.0 (40.0-70.0) % Seg Neutrophils # 3.9 (1.8-7.7) K/mm3 Sodium 137 (137-145) mmol/L Potassium 4.1 (3.6-5.0) mmol/L Chloride 104.1 (98-107) mmol/L Carbon Dioxide 21 L (22-30) mmol/L Anion Gap 16 mmol/L BUN 9 (7-17) mg/dL Creatinine 0.7 (0.7-1.2) mg/dL Estimated GFR > 60 ml/min BUN/Creatinine Ratio 13 % Glucose 97 (65-100) mg/dL POC Glucose (70-105) Calcium 8.6 (8.4-10.2) mg/dL Magnesium (1.7-2.3) mg/dL HCG, Qual (Negative) Phenytoin 6.6 L (10.0-20.0) ug/mL 02/09/19 02/09/19 02/09/19 Range/Units 18:06 18:06 20:10 WBC (4.5-11.0) K/mm3 RBC (3.65-5.03) M/mm3 Hgb (10.1-14.3) gm/dl Hct (30.3-42.9) % MCV (79-97) fl MCH (28-32) pg MCHC (30-34) % RDW (13.2-15.2) % Plt Count (140-440) K/mm3 Lymph % (Auto) (13.4-35.0) % [place] % (Auto) (0.0-7.3) % Eos % (Auto) (0.0-4.3) % Baso % (Auto) (0.0-1.8) % Lymph # (1.2-5.4) K/mm3 [place] # (0.0-0.8) K/mm3 Eos # (0.0-0.4) K/mm3 Baso # (0.0-0.1) K/mm3 Seg Neutrophils % (40.0-70.0) % Seg Neutrophils # (1.8-7.7) K/mm3 Sodium (137-145) mmol/L Potassium (3.6-5.0) mmol/L Chloride (98-107) mmol/L Carbon Dioxide (22-30) mmol/L Anion Gap mmol/L BUN (7-17) mg/dL Creatinine (0.7-1.2) mg/dL Estimated GFR ml/min BUN/Creatinine Ratio % Glucose (65-100) mg/dL POC Glucose 94 (70-105) Calcium (8.4-10.2) mg/dL Magnesium 2.00 (1.7-2.3) mg/dL HCG, Qual Negative (Negative) Phenytoin (10.0-20.0) ug/mL - Radiology Data Radiology results: report reviewed PROCEDURE: CT HEAD/BRAIN WO CON TECHNIQUE: Computerized tomography of the head was performed without contrast material. CT DOSE LENGTH PRODUCT: 920.5 mGycm HISTORY: FELL AND HIT BACK OF HEAD AT [facility] [place], AND BACK PAIN. COMPARISONS: None . FINDINGS: Unenhanced CT of the brain was performed and demonstrates no acute intracranial hemorrhage, extra-axial fluid collection, midline shift or mass effect. The ventricles and basal cisterns are not effaced. The mastoid air cells and middle ears appear clear. There is no evidence of acute sinusitis. The bony calvarium appears intact. IMPRESSION: No acute intracranial hemorrhage PROCEDURE: CT LUMBAR SPINE WO CON HISTORY: FELL AT [facility], LBP. FINDINGS: Unenhanced CT of the lumbar spine was performed and data was reformatted into sagittal and coronal planes. These images demonstrate no fracture or malalignment of the lumbar spine. There are endplate Schmorl's nodes in all levels from T12-L1 to L4-L5. There is no evidence of central canal stenosis and significant neural foraminal narrowing or nerve root impingement. IMPRESSION: No fracture or malalignment of the lumbar spine EXAM: XR KNEE 3V LT HISTORY: pain after fall TECHNIQUE: 3 views COMPARISON: None FINDINGS: No fracture or dislocation. The joint spaces are maintained. No suprapatellar joint effusion. IMPRESSION: No fracture or dislocation. EXAM: XR KNEE 3V LT HISTORY: pain after fall TECHNIQUE: 3 views COMPARISON: None FINDINGS: No fracture or dislocation. The joint spaces are maintained. No suprapatellar joint effusion. IMPRESSION: No fracture or dislocation. - Medical Decision Making Nurses were unable to establish IV access after multiple attempts. Patient declined EJ placement and therefore received oral and IM medications instead. 300 mg of by mouth Dilantin will be instructed to take her 200 mg dose prior to bedtime then restart her 200 twice a day dosing. No acute injury identified on imaging studies ortho f/u for knee injury, crutches and knee immobilizer neuro for sz pt usually takes dilantin 200mg bid at 4:30 am and pm. no sz while in prison on this dose - Differential Diagnosis intracranial hemorrhage, seizure, medical noncompliance, fracture, contusio Critical Care Time: No Critical care attestation.: If time is entered above; I have spent that time in minutes in the direct care of this critically ill patient, excluding procedure time. ED Disposition Clinical Impression: Seizure, Fall, Strain of left knee, Back strain Disposition: TO HOME OR SELFCARE Is pt being admited?: No Does the pt Need Aspirin: No Condition: Stable Instructions: Recurrent Seizures Adult (ED), Low Back Strain (ED), Knee Sprain (ED) Additional Instructions: Take the medication as prescribed. Follow up with your doctor or the clinic/doctor provided. Return if symptoms worsen as indicated by your discha rge instructions Prescriptions: Phenytoin [Dilantin] 300 mg PO BID 30 Days capsule Ibuprofen [Motrin] 800 mg PO Q8HR PRN #30 tablet PRN Reason: Pain , Severe (7-10) Referrals: [facility] LEFTY PATEL MD [Primary Care Provider] - 3-5 Days MARIBEL CORONA MD [Staff Physician] - 3-5 Days (neurology) SHAWN ROSA MD [Staff Physician] - 3-5 Days (neurology) PASTORA MELLO MD [Staff Physician] - 3-5 Days (orthopedics) Time of Disposition: 20:57
[2019-02-09 18:20] LABS: Basophils % (Auto) 0.5 % (0.0-1.8); Hematocrit 33.2 % (30.3-42.9); Hemoglobin 10.9 gm/dl (10.1-14.3); Lymphocytes # (Auto) 1.5 K/mm3 (1.2-5.4); Lymphocytes % (Auto) 25.7 % (13.4-35.0); Mean Corpuscular HGB Conc 33 % (30-34); Mean Corpuscular Volume 81 fl (79-97); Monocytes # (Auto) 0.5 K/mm3 (0.0-0.8); Monocytes % (Auto) 8.8 % (0.0-7.3); Platelet Count 290 K/mm3 (140-440); Red Cell Distribution Width 18.6 % (13.2-15.2)
[2019-02-09] MEDS ORDERED: TORADOL IM ONE (18:35)
[2019-02-09 18:41] LABS: BUN/Creatinine Ratio 13; Blood Urea Nitrogen 9 mg/dL (7-17); Calcium 8.6 mg/dL (8.4-10.2); Hemolysis Index 5
[2019-02-09] MEDS ORDERED: DILANTIN PO ONE (19:08)
--- NOTE | 2019-02-09 19:19 | XRay Report ---
EXAM: XR KNEE 3V LT HISTORY: pain after fall TECHNIQUE: 3 views COMPARISON: None FINDINGS: No fracture or dislocation. The joint spaces are maintained. No suprapatellar joint effusion. IMPRESSION: No fracture or dislocation. This document is electronically signed by Linden Davis MD., February 09 2019 07:17:32 PM ET
--- NOTE | 2019-02-09 20:11 | Cat Scan Report ---
PROCEDURE: CT HEAD/BRAIN WO CON TECHNIQUE: Computerized tomography of the head was performed without contrast material. CT DOSE LENGTH PRODUCT: 920.5 mGycm HISTORY: FELL AND HIT BACK OF HEAD AT [facility]. [place], AND BACK PAIN. COMPARISONS: None . FINDINGS: Unenhanced CT of the brain was performed and demonstrates no acute intracranial hemorrhage, extra-axial fluid collection, midline shift or mass effect. The ventricles and basal cisterns are no t effaced. The mastoid air cells and middle ears appear clear. There is no evidence of acute sinusitis. The bony calvarium appears intact. IMPRESSION: No acute intracranial hemorrhage This document is electronically signed by Yousuf Ventura MD., February 09 2019 08:09:58 PM ET
--- NOTE | 2019-02-09 20:13 | Cat Scan Report ---
PROCEDURE: CT LUMBAR SPINE WO CON HISTORY: FELL AT [facility], LBP. FINDINGS: Unenhanced CT of the lumbar spine was performed and data was reformatted into sagittal and coronal planes. These images demonstrate no fracture or malalignment of the lumbar spine. There are endplate Schmorl' s nodes in all levels from T12-L1 to L4-L5. There is no evidence of central canal stenosis and signif icant neural foraminal narrowing or nerve root impingement. IMPRESSION: No fracture or malalignment of the lumbar spine This document is electronically signed by Yousuf Ventura MD., February 09 2019 08:11:39 PM ET
[2019-02-09 21:39] VITALS: BP 140/71
== END 2019-02-09 21:40 | disposition home or self-care (01) ==
LOC: ED 17:28
DX: S86.912A Strain of unspecified muscle(s) and tendon(s) at lower leg level, left leg, initial encounter (principal); S39.012A Strain of muscle, fascia and tendon of lower back, initial encounter; I25.2 Old myocardial infarction; F17.200 Nicotine dependence, unspecified, uncomplicated; F15.90 Other stimulant use, unspecified, uncomplicated; Z88.8 Allergy status to other drugs, medicaments and biological substances; Z86.73 Personal history of transient ischemic attack (TIA), and cerebral infarction without residual deficits; Z79.899 Other long term (current) drug therapy; Z90.721 Acquired absence of ovaries, unilateral; W01.0XXA Fall on same level from slipping, tripping and stumbling without subsequent striking against object, initial encounter; Y93.89 Activity, other specified; Y92.89 Other specified places as the place of occurrence of the external cause; Y99.8 Other external cause status
CPT/HCPCS: 29505; 36415; 70450; 72131; 73562; 80048; 80185; 82962; 83735; 84703; 85025; 96372; 99285; J1885

== ENCOUNTER 2019-05-13 20:02 | Emergency (ER) | payer MEDICARE ==
--- NOTE | 2019-05-13 20:46 | Emergency Department Report ---
ED Anxiety HPI - General Stated Complaint: ANXIETY/BACK PAIN/FALL Time Seen by Provider: 05/13/19 20:25 - History of Present Illness Initial Comments: 33-year-old female with history of bipolar disorder, PTSD, hypotension, seizure disorder presents to ED by EMS. 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 Patient states afterward, she began to feel as if she might have a seizure. Patient states "I don't know if it was a real seizure, pseudoseizure, or what." Patient states her psychiatrist previously had her taking Dilantin, however she is now under the care of a neurologist who has taken her off of Dilantin. Patient states she will be undergoing an EEG study to see if she is actually having seizures. Patient also reports she sustained a fall 2 months ago. Is currently under the care of his surgeons orthopedics, and had a physical therapy appointment today. Patient states she is upset about the fact that she has not received any pain medications from them, and feels as if she cannot work while she is in pain, which led to her argument with her boss. Currently, patient states she will use which she had was an anxiety attack while in her car. Bystanders called 911, and patient was transported to the ER. Patient is requesting something for pain and anxiety. MD Complaint: anxiety -: This evening Place: other (in her car) Previous History of Same: Yes Severity: moderate Quality: improving, similar to prior episodes Provoking factors: emotional stress, work/job stress Improves With: nothing Worsens With: nothing - Related Data Home Medications: Previous Rx's Medication Instructions Recorded Last Taken Type Acetaminophen/Codeine [Tylenol 1 tab PO Q6H PRN #10 tab 01/18/18 Unknown Rx /Codeine # 3 tab] Amoxicillin [Trimox CAP] 500 mg PO Q8H #30 capsule 01/18/18 Unknown Rx Chlorhexidine Mouthwash [Peridex] 15 ml MM BID #1 bottle 01/18/18 Unknown Rx Ibuprofen [Motrin] 800 mg PO Q8HR PRN #20 tablet 01/18/18 Unknown Rx Phenytoin (25 mg/ml) [Dilantin] 100 mg PO Q8HR #30 tab 01/20/18 Unknown Rx Phenytoin [Dilantin] 500 mg PO BID #30 capsule 01/20/18 Unknown Rx levETIRAcetam [Keppra XR TAB] 1,000 mg PO QDAY #30 tab.er.24h 01/20/18 Unknown Rx Omeprazole 20 mg PO DAILY #14 tablet. 03/14/18 Unknown Rx Ondansetron [Zofran ODT TAB] 8 mg PO Q8HR PRN #10 tab.rapdis 03/14/18 Unknown Rx HYDROcodone/APAP 5-325 [[place] 1 - 2 each PO Q6HR PRN #14 tablet 10/25/18 Unknown Rx 5/325] Ibuprofen [Motrin 800 MG tab] 800 mg PO Q8HR PRN #20 tablet 10/25/18 Unknown Rx medroxyPROGESTERone ACETATE 5 mg PO QDAY #10 tablet 10/25/18 Unknown Rx [Provera] Ibuprofen [Motrin] 800 mg PO Q8HR PRN #30 tablet 02/09/19 Unknown Rx Phenytoin [Dilantin] 300 mg PO BID 30 Days capsule 02/09/19 Unknown Rx Allergies/Adverse Reactions: Allergies Allergy/AdvReac Type Severity Reaction Status Date / Time lamotrigine [From Lamictal] AdvReac Unknown Verified 05/13/19 20:49 topiramate [From Topamax] AdvReac Unknown Verified 05/13/19 20:49 ED Review of Systems ROS: Stated complaint: ANXIETY/BACK PAIN/FALL Other details as noted in HPI Comment: All other systems reviewed and negative Respiratory: denies: shortness of breath Cardiovascular: denies: chest pain Musculoskeletal: back pain Psychiatric: anxiety. denies: homicidal thoughts, suicidal thoughts ED Past Medical Hx - Past Medical History Hx CVA: Yes (no deficits) Hx Heart Attack/AMI: Yes Hx Seizures: Yes Hx Psychiatric Treatment: Yes (anxiety, bipolar, schizophrenia, PTSD) Additional medical history: Hx of seizures, bi polar. - Surgical History Additional Surgical History: Right oophorectomy - Social History Smoking Status: Current Every Day Smoker (1 pack per day) Substance Use Type: Alcohol (occasional), Methamphetamines - Medications Home Medications: Home Medications Medication Instructions Recorded Confirmed Last Taken Type Acetaminophen/Codeine [Tylenol 1 tab PO Q6H PRN #10 tab 01/18/18 Unknown Rx /Codeine # 3 tab] Amoxicillin [Trimox CAP] 500 mg PO Q8H #30 capsule 01/18/18 Unknown Rx Chlorhexidine Mouthwash [Peridex] 15 ml MM BID #1 bottle 01/18/18 Unknown Rx Ibuprofen [Motrin] 800 mg PO Q8HR PRN #20 tablet 01/18/18 Unknown Rx Phenytoin (25 mg/ml) [Dilantin] 100 mg PO Q8HR #30 tab 01/20/18 Unknown Rx Phenytoin [Dilantin] 500 mg PO BID #30 capsule 01/20/18 Unknown Rx levETIRAcetam [Keppra XR TAB] 1,000 mg PO QDAY #30 tab.er.24h 01/20/18 Unknown Rx Omeprazole 20 mg PO DAILY #14 tablet.dr 03/14/18 Unknown Rx Ondansetron [Zofran ODT TAB] 8 mg PO Q8HR PRN #10 tab.rapdis 03/14/18 Unknown Rx HYDROcodone/APAP 5-325 [[place] 1 - 2 each PO Q6HR PRN #14 tablet 10/25/18 Unknown Rx 5/325] Ibuprofen [Motrin 800 MG tab] 800 mg PO Q8HR PRN #20 tablet 10/25/18 Unknown Rx medroxyPROGESTERone ACETATE 5 mg PO QDAY #10 tablet 10/25/18 Unknown Rx [Provera] Ibuprofen [Motrin] 800 mg PO Q8HR PRN #30 tablet 02/09/19 Unknown Rx Phenytoin [Dilantin] 300 mg PO BID 30 Days capsule 02/09/19 Unknown Rx ED Physical Exam - General General appearance: alert, in no apparent distress, anxious - Head Head exam: Present: atraumatic, normocephalic - Eye Eye exam: Present: normal appearance, PERRL, EOMI - ENT ENT exam: Present: mucous membranes moist - Neck Neck exam: Present: normal inspection - Respiratory Respiratory exam: Present: normal lung sounds bilaterally. Absent: respiratory distress - Cardiovascular Cardiovascular Exam: Present: regular rate, normal rhythm - GI/Abdominal GI/Abdominal exam: Present: soft. Absent: distended, tenderness - Extremities Exam Extremities exam: Present: normal inspection - Neurological Exam Neurological exam: Present: alert, oriented X3, CN II-XII intact. Absent: motor sensory deficit - Psychiatric Psychiatric exam: Present: anxious - Skin Skin exam: Present: warm, dry, intact, normal color. Absent: rash ED Course Vital Signs 05/13/19 21:00 Respiratory 18 Rate ED Medical Decision Making - Medical Decision Making No neuro deficits. Likely anxiety attack, not a seizure, as pt is A&O x 3, not postictal. Advised to f/u w/ her private physicians. - Differential Diagnosis anxiety Critical care attestation.: If time is entered above; I have spent that time in minutes in the direct care of this critically ill patient, excluding procedure time. ED Disposition Clinical Impression: Anxiety, Chronic neck and back pain Disposition: - TO HOME OR SELFCARE Is pt being admited?: No Condition: Stable Instructions: Anxiety (ED) Referrals: LEFTY RAND MD [Primary Care Provider] - 3-5 Days PRIMARY CAREMD [Referring] - 3-5 Days Time of Disposition: 21:04
[2019-05-13] MEDS ORDERED: IBUPROFEN PO ONE (20:47)
[2019-05-13] MEDS ORDERED: ATIVAN PO ONE (20:47)
== END 2019-05-13 21:24 | disposition home or self-care (01) ==
LOC: ED 20:02
DX: F41.9 Anxiety disorder, unspecified (principal); G40.909 Epilepsy, unspecified, not intractable, without status epilepticus; G89.29 Other chronic pain; M54.2 Cervicalgia; M54.9 Dorsalgia, unspecified; I25.2 Old myocardial infarction; F31.9 Bipolar disorder, unspecified; F20.9 Schizophrenia, unspecified; F43.10 Post-traumatic stress disorder, unspecified; F15.10 Other stimulant abuse, uncomplicated; F17.200 Nicotine dependence, unspecified, uncomplicated; Z86.73 Personal history of transient ischemic attack (TIA), and cerebral infarction without residual deficits; Z98.890 Other specified postprocedural states; Z79.899 Other long term (current) drug therapy; Z88.8 Allergy status to other drugs, medicaments and biological substances

== ENCOUNTER 2019-08-13 19:23 | Emergency (ER) | payer MEDICARE ==
--- NOTE | 2019-08-13 19:40 | Event Note ---
ED Screening Note Date of service: 08/13/19 Time: 19:39 ED Screening Note: 34 y o female presents with pelvic pain and vaginal spotting stating she was told she may have an ectopic by [facility] This initial assessment/diagnostic orders/clinical plan/treatment(s) is/are subject to change based on patients health status, clinical progression and re- assessment by fellow clinical providers in the ED. Further treatment and workup at subsequent clinical providers discretion. Patient/guardian urged not to elope from the ED as their condition may be serious if not clinically assessed and managed. Initial orders include: labs, ua US
[2019-08-13 19:41] VITALS: BP 115/72
[2019-08-13 20:22] LABS: Bilirubin,Urine NEG (Negative); Blood,Urine NEG (Negative); Color,Urine Yellow (Yellow); Mucus,Urine FEW /HPF; Protein,Urine <15 mg/dL mg/dL (Negative); Urobilinogen,Urine < 2.0 mg/dL (<2.0)
--- NOTE | 2019-08-13 20:49 | Ultrasound Report ---
OB Ultrasound HISTORY: Acute pelvic pain. TECHNIQUE: Grayscale and color Doppler imaging performed. COMPARISON: None FINDINGS: Uterus measures 11.0 x 8.3 x 9.0 cm with an intrauterine gestational sac identified. pole measures 2.5 cm in length which corresponds with an EGA of 9 weeks and 2 days. Heart rate is 171 bpm. A crescentic hypodensity measuring 2.2 x 1.4 x 1.7 cm is seen adjacent to the fetus. Left ovary contains a 2.6 cm cyst which is simple in appearance. Right ovary is reportedly surgically absent. No significant pelvic free fluid. IMPRESSION: 1. Single viable intrauterine gestation as above. 2. Moderately-sized subchorionic hemorrhage. 3. Simple left ovarian cyst. Right-sided nephrectomy. Signer Name: Nemesio Tucker MD Signed: 08/13/2019 8:45 PM Workstation Name: [id number]
--- NOTE | 2019-08-13 22:08 | Emergency Department Report ---
ED Abdominal Pain HPI - General Chief Complaint: Abdominal Pain Stated Complaint: 8 WEEKS PREG,ABDOMINAL PAIN/DIZZY Time Seen by Provider: 08/13/19 21:37 Source: patient Mode of arrival: Ambulatory Limitations: No Limitations - History of Present Illness Initial Comments: Ms. Rodriguez is a 34 y /o female presents with pelvic pain and vaginal spotting . pt stating she was told she may have an ectopic by [facility]. pt denies vaginal bleeding at this time, no fever , no chills, no n/v. MD Complaint: abdominal pain Onset/Timin -: week(s) Location: LLQ, RLQ Radiation: none Migration to: LLQ, RLQ (Augmentin) Severity: moderate Severity scale (0 -10): 3 Quality: cramping, aching Consistency: constant Improves With: nothing Worsens With: nothing Associated Symptoms: denies: nausea, vomiting, diarrhea, fever, chills, cons tipation, dysuria - Related Data LMP (females 10-50): 3 months Previous Rx's Medication Instructions Recorded Last Taken Type Acetaminophen/Codeine [Tylenol 1 tab PO Q6H PRN #10 tab 01/18/18 Unknown Rx /Codeine # 3 tab] Amoxicillin [Trimox CAP] 500 mg PO Q8H #30 capsule 01/18/18 Unknown Rx Chlorhexidine Mouthwash [Peridex] 15 ml MM BID #1 bottle 01/18/18 Unknown Rx Ibuprofen [Motrin] 800 mg PO Q8HR PRN #20 tablet 01/18/18 Unknown Rx Phenytoin (25 mg/ml) [Dilantin] 100 mg PO Q8HR #30 tab 01/20/18 Unknown Rx Phenytoin [Dilantin] 500 mg PO BID #30 capsule 01/20/18 Unknown Rx levETIRAcetam [Keppra XR TAB] 1,000 mg PO QDAY #30 tab.er.24h 01/20/18 Unknown Rx Omeprazole 20 mg PO DAILY #14 tablet. 03/14/18 Unknown Rx Ondansetron [Zofran ODT TAB] 8 mg PO Q8HR PRN #10 tab.rapdis 03/14/18 Unknown Rx HYDROcodone/APAP 5-325 [[place] 1 - 2 each PO Q6HR PRN #14 tablet 10/25/18 Unknown Rx 5/325] Ibuprofen [Motrin 800 MG tab] 800 mg PO Q8HR PRN #20 tablet 10/25/18 Unknown Rx medroxyPROGESTERone ACETATE 5 mg PO QDAY #10 tablet 10/25/18 Unknown Rx [Provera] Ibuprofen [Motrin] 800 mg PO Q8HR PRN #30 tablet 02/09/19 Unknown Rx Phenytoin [Dilantin] 300 mg PO BID 30 Days capsule 02/09/19 Unknown Rx Acetaminophen [Acetaminophen ER] 650 mg PO Q6H PRN #30 tablet.er 08/13/19 Unknown Rx Allergies Allergy/AdvReac Type Severity Reaction Status Date / Time morphine Allergy Rash Verified 08/13/19 19:29 lamotrigine [From Lamictal] AdvReac Unknown Verified 05/13/19 20:49 ED Review of Systems ROS: Stated complaint: 8 WEEKS PREG,ABDOMINAL PAIN/DIZZY Other details as noted in HPI Constitutional: denies: chills, fever Eyes: denies: eye pain, eye discharge, vision change ENT: denies: ear pain, throat pain Respiratory: denies: cough, shortness of breath, wheezing Cardiovascular: denies: chest pain, palpitations Endocrine: no symptoms reported Gastrointestinal: denies: abdominal pain, nausea, diarrhea Genitourinary: denies: urgency, dysuria, discharge Musculoskeletal: denies: back pain, joint swelling, arthralgia Skin: denies: rash, lesions Neurological: denies: headache, weakness, paresthesias Psychiatric: denies: anxiety, depression Hematological/Lymphatic: denies: easy bleeding, easy bruising ED Past Medical Hx - Past Medical History Hx CVA: Yes (no deficits) Hx Heart Attack/AMI: Yes Hx Seizures: Yes Hx Psychiatric Treatment: Yes (anxiety, bipolar, schizophrenia, PTSD) Additional medical history: Hx of seizures, bi polar. - Surgical History Additional Surgical History: Right oophorectomy - Social History Smoking Status: Never Smoker Substance Use Type: None - Medications Home Medications: Home Medications Medication Instructions Recorded Confirmed Last Taken Type Acetaminophen/Codeine [Tylenol 1 tab PO Q6H PRN #10 tab 01/18/18 Unknown Rx /Codeine # 3 tab] Amoxicillin [Trimox CAP] 500 mg PO Q8H #30 capsule 01/18/18 Unknown Rx Chlorhexidine Mouthwash [Peridex] 15 ml MM BID #1 bottle 01/18/18 Unknown Rx Ibuprofen [Motrin] 800 mg PO Q8HR PRN #20 tablet 01/18/18 Unknown Rx Phenytoin (25 mg/ml) [Dilantin] 100 mg PO Q8HR #30 tab 01/20/18 Unknown Rx Phenytoin [Dilantin] 500 mg PO BID #30 capsule 01/20/18 Unknown Rx levETIRAcetam [Keppra XR TAB] 1,000 mg PO QDAY #30 tab.er.24h 01/20/18 Unknown Rx Omeprazole 20 mg PO DAILY #14 tablet.dr 03/14/18 Unknown Rx Ondansetron [Zofran ODT TAB] 8 mg PO Q8HR PRN #10 tab.rapdis 03/14/18 Unknown Rx HYDROcodone/APAP 5-325 [[place] 1 - 2 each PO Q6HR PRN #14 tablet 10/25/18 Unknown Rx 5/325] Ibuprofen [Motrin 800 MG tab] 800 mg PO Q8HR PRN #20 tablet 10/25/18 Unknown Rx medroxyPROGESTERone ACETATE 5 mg PO QDAY #10 tablet 10/25/18 Unknown Rx [Provera] Ibuprofen [Motrin] 800 mg PO Q8HR PRN #30 tablet 02/09/19 Unknown Rx Phenytoin [Dilantin] 300 mg PO BID 30 Days capsule 02/09/19 Unknown Rx Acetaminophen [Acetaminophen ER] 650 mg PO Q6H PRN #30 tablet.er 08/13/19 Unknown Rx ED Physical Exam - General Limitations: No Limitations (Coumadin will) General appearance: alert ( he will roll ), in no apparent distress - Head Head exam: Present: atraumatic - Eye Eye exam: Present: normal appearance, PERRL, EOMI Pupils: Present: normal accommodation - ENT ENT exam: Present: normal orophraynx, mucous membranes moist, TM's normal bilaterally, normal external ear exam - Neck Neck exam: Present: normal inspection, full ROM. Absent: meningismus, lymphadenopathy - Respiratory Respiratory exam: Present: normal lung sounds bilaterally - Cardiovascular Cardiovascular Exam: Present: regular rate, normal rhythm, normal heart sounds. Absent: systolic murmur, diastolic murmur, rubs, gallop - GI/Abdominal GI/Abdominal exam: Present: soft, normal bowel sounds, bruit, pulsatile mass. Absent: distended, tenderness, guarding, rebound, rigid - Rectal Rectal exam: Present: deferred - External exam: Present: other (deferred per patient ) - Extremities Exam Extremities exam: Present: normal inspection, full ROM (abdomen is), normal capillary refill - Back Exam Back exam: Present: normal inspection, full ROM, CVA tenderness (R). Absent: tenderness, CVA tenderness (L) (E Wilms is clear), muscle spasm, rash noted - Neurological Exam Neurological exam: Present: alert, oriented X3, CN II-XII intact, motor sensory deficit, reflexes normal (O) - Psychiatric Psychiatric exam: Present: normal affect, normal mood - Skin Skin exam: Present: warm (was 0 this immobilizing walker reviewed along the [place] [facility]), dry, intact, normal color. Absent: rash ED Course Vital Signs 08/13/19 19:33 Temperature 98.6 F Pulse Rate 91 H Respiratory 16 Rate Blood Pressure 115/72 O2 Sat by Pulse 99 Oximetry ED Medical Decision Making - Radiology Data Radiology results: report reviewed, image reviewed single IUP viable 9 weeks and 2 day, FHR: 171, Left ovarian cyst, moderated size subchorionic hemorrhage, - Medical Decision Making single IUP viable 9 weeks and 2 day, FHR: 171, Left ovarian cyst, moderated size subchorionic hemorrhage, Critical care attestation.: If time is entered above; I have spent that time in minutes in the direct care of this critically ill patient, excluding procedure time. ED Disposition Clinical Impression: Abdominal pain affecting , Threatened miscarriage Subchorionic hemorrhage in first trimester Qualifiers: Fetus number: single or unspecified fetus Qualified Code(s): O41.8X10 - Other specified disorders of amniotic fluid and membranes, first trimester, not applicable or unspecified; O46.8X1 - Other antepartum hemorrhage, first trimester Qualifiers: Weeks of gestation: 9 weeks Qualified Code(s): Z3A.09 - 9 weeks gestation of Disposition: - TO HOME OR SELFCARE Is pt being admited?: No Does the pt Need Aspirin: No Condition: Stable Instructions: Abdominal Pain (ED), Threatened Miscarriage (ED), (ED) Prescriptions: Acetaminophen [Acetaminophen ER] 650 mg PO Q6H PRN #30 tablet.er PRN Reason: pain Referrals: MINNIE STEIN MD [Staff Physician] - 3-5 Days Forms: Work/School Release Form(ED) Time of Disposition: 23:01
== END 2019-08-13 23:09 | disposition home or self-care (01) ==
LOC: ED 19:23
DX: O20.0 Threatened abortion (principal); O41.8X10 Other specified disorders of amniotic fluid and membranes, first trimester, not applicable or unspecified; O99.341 Other mental disorders complicating pregnancy, first trimester; F31.9 Bipolar disorder, unspecified; F20.9 Schizophrenia, unspecified; Z86.73 Personal history of transient ischemic attack (TIA), and cerebral infarction without residual deficits; Z79.899 Other long term (current) drug therapy; Z88.6 Allergy status to analgesic agent; Z88.1 Allergy status to other antibiotic agents; Z3A.09 9 weeks gestation of pregnancy
CPT/HCPCS: 36415; 76801; 81001; 84702; 86900; 86901

== ENCOUNTER 2019-09-20 18:48 | Emergency (ER) | payer MEDICARE ==
--- NOTE | 2019-09-20 19:50 | Event Note ---
ED Screening Note Date of service: 09/20/19 Time: 19:49 ED Screening Note: Pt c/o right foot injury x today 16 weeks This initial assessment/diagnostic orders/clinical plan/treatment(s) is/are subject to change based on patients health status, clinical progression and re- assessment by fellow clinical providers in the ED. Further treatment and workup at subsequent clinical providers discretion. Patient/guardian urged not to elope from the ED as their condition may be serious if not clinically assessed and managed. Initial orders include: ACC XR
[2019-09-20 21:22] LABS: Basophils # (Auto) 0.2 K/mm3 (0.0-0.1); Basophils % (Auto) 2.3 % (0.0-1.8); Hematocrit 35.2 % (30.3-42.9); Hemoglobin 11.6 gm/dl (10.1-14.3); Lymphocytes # (Auto) 1.6 K/mm3 (1.2-5.4); Lymphocytes % (Auto) 16.3 % (13.4-35.0); Mean Corpuscular HGB Conc 33 % (30-34); Mean Corpuscular Volume 77 fl (79-97); Monocytes # (Auto) 0.8 K/mm3 (0.0-0.8); Monocytes % (Auto) 7.7 % (0.0-7.3); Platelet Count 273 K/mm3 (140-440); Red Blood Count 4.58 M/mm3 (3.65-5.03); Red Cell Distribution Width 18.7 % (13.2-15.2)
--- NOTE | 2019-09-20 21:30 | Ultrasound Report ---
OB ultrasound FINDINGS: Single fetus is identified in transverse presentation with the head to maternal left. heart rate is 152 bpm. Cervix measures 4.7 cm in length and is closed. Placenta is posterior in loca tion. Amniotic fluid volume measures 5 cm. Appropriate measurements reveal an MA of 15 weeks 2 days f or an EDC of 03/11/2020. This correlates with the clinical dates. Right ovary has been removed. Left ov ricci contains a 2.5 x 2.3 x 2 cm cyst. No abnormality seen. Signer Name: Preet Benites MD Signed: 09/20/2019 9:25 PM Workstation Name: [id number]
[2019-09-20 21:43] LABS: Alanine Aminotransferase 9 units/L (7-56); Albumin 3.6 g/dL (3.9-5); BUN/Creatinine Ratio 12; Blood Urea Nitrogen 7 mg/dL (7-17); Calcium 9.4 mg/dL (8.4-10.2); Hemolysis Index 2
--- NOTE | 2019-09-20 22:06 | XRay Report ---
RIGHT FOOT 3 VIEW(S) INDICATION / CLINICAL INFORMATION: pain after injury COMPARISON: None available. FINDINGS: BONES / JOINT(S): Moderately displaced avulsion fracture of the base of the 5th metatarsal. Fracture fragment is retracted by about 4 mm with slight lateral angulation. No other acute fracture. Moderate -sized type II accessory medial navicular ossicle. SOFT TISSUES: No significant abnormality. ADDITIONAL FINDINGS: None. IMPRESSION: 1. Moderately displaced avulsion fracture of the base of the 5th metatarsal. Signer Name: Evelia Franklin MD Signed: 09/20/2019 10:02 PM Workstation Name: [id number]
[2019-09-20] MEDS ORDERED: HYDROcodone/ACETAMINOPHEN 5-325 MG TAB PO ONE ×2 (23:13→23:14)
[2019-09-20] MEDS ORDERED: HYDROcodone/ACETAMINOPHEN 5-325 MG TAB ONE (23:14)
--- NOTE | 2019-09-20 23:23 | Emergency Department Report ---
ED Fall HPI - General Chief Complaint: Fall Stated Complaint: ANKLE/FEET PAIN Time Seen by Provider: 09/20/19 19:48 Source: patient, family Mode of arrival: Wheelchair - History of Present Illness Initial Comments: 34 -year-old female who is currently about 16 weeks presents to the ER today complaining of bilateral foot pain after an accidental fall today. Patient states that she was carrying bags down some steps, she was wearing flip- flops, and distensible wet when she slipped and fell down about 3 steps. She reports injury to both feet, right greater than left. She denies any head injury. She denies any abdominal injury or abdominal pain or any vaginal bleed ing. She reports pain and swelling and bruising especially to the right foot. She reports difficulty ambulating due to pain. She has no other symptoms at this time. MD Complaint: fall, other (Bilateral Foot Pain) -: Sudden (Today) Fall From: down stairs (#) (3) - Related Data Previous Rx's Medication Instructions Recorded Last Taken Type Acetaminophen/Codeine [Tylenol 1 tab PO Q6H PRN #10 tab 01/18/18 Unknown Rx /Codeine # 3 tab] Amoxicillin [Trimox CAP] 500 mg PO Q8H #30 capsule 01/18/18 Unknown Rx Chlorhexidine Mouthwash [Peridex] 15 ml MM BID #1 bottle 01/18/18 Unknown Rx Ibuprofen [Motrin] 800 mg PO Q8HR PRN #20 tablet 01/18/18 Unknown Rx Phenytoin (25 mg/ml) [Dilantin] 100 mg PO Q8HR #30 tab 01/20/18 Unknown Rx Phenytoin [Dilantin] 500 mg PO BID #30 capsule 01/20/18 Unknown Rx levETIRAcetam [Keppra XR TAB] 1,000 mg PO QDAY #30 tab.er.24h 01/20/18 Unknown Rx Omeprazole 20 mg PO DAILY #14 tablet. 03/14/18 Unknown Rx Ondansetron [Zofran ODT TAB] 8 mg PO Q8HR PRN #10 tab.rapdis 03/14/18 Unknown Rx Ibuprofen [Motrin 800 MG tab] 800 mg PO Q8HR PRN #20 tablet 10/25/18 Unknown Rx medroxyPROGESTERone ACETATE 5 mg PO QDAY #10 tablet 10/25/18 Unknown Rx [Provera] Ibuprofen [Motrin] 800 mg PO Q8HR PRN #30 tablet 02/09/19 Unknown Rx Phenytoin [Dilantin] 300 mg PO BID 30 Days capsule 02/09/19 Unknown Rx Acetaminophen [Acetaminophen ER] 650 mg PO Q6H PRN #30 tablet.er 08/13/19 Unknown Rx HYDROcodone/APAP 5-325 [[place] 1 - 2 each PO Q6HR PRN #14 tablet 09/21/19 Unknown Rx 5-325 mg TAB] Allergies Allergy/AdvReac Type Severity Reaction Status Date / Time morphine Allergy Rash Verified 08/13/19 19:29 lamotrigine [From Lamictal] AdvReac Unknown Verified 05/13/19 20:49 ED Review of Systems ROS: Stated complaint: ANKLE/FEET PAIN Other details as noted in HPI Constitutional: denies: chills, fever Gastrointestinal: denies: abdominal pain, nausea, vomiting Genitourinary: other (No vaginal bleeding). denies: dysuria, frequency, hematuria, discharge Musculoskeletal: joint swelling, arthralgia Neurological: abnormal gait. denies: headache, numbness, paresthesias, confusion ED Past Medical Hx - Past Medical History Previous Medical History?: Yes Hx CVA: Yes (no deficits TIA) Hx Heart Attack/AMI: Yes Hx Seizures: Yes Hx Psychiatric Treatment: Yes (anxiety, bipolar, schizophrenia, PTSD) Additional medical history: Hx of seizures, bi polar. - Surgical History Past Surgical History?: Yes Additional Surgical History: Right oophorectomy - Social History Smoking Status: Current Every Day Smoker - Medications Home Medications: Home Medications Medication Instructions Recorded Confirmed Last Taken Type Acetaminophen/Codeine [Tylenol 1 tab PO Q6H PRN #10 tab 01/18/18 Unknown Rx /Codeine # 3 tab] Amoxicillin [Trimox CAP] 500 mg PO Q8H #30 capsule 01/18/18 Unknown Rx Chlorhexidine Mouthwash [Peridex] 15 ml MM BID #1 bottle 01/18/18 Unknown Rx Ibuprofen [Motrin] 800 mg PO Q8HR PRN #20 tablet 01/18/18 Unknown Rx Phenytoin (25 mg/ml) [Dilantin] 100 mg PO Q8HR #30 tab 01/20/18 Unknown Rx Phenytoin [Dilantin] 500 mg PO BID #30 capsule 01/20/18 Unknown Rx levETIRAcetam [Keppra XR TAB] 1,000 mg PO QDAY #30 tab.er.24h 01/20/18 Unknown Rx Omeprazole 20 mg PO DAILY #14 tablet.dr 03/14/18 Unknown Rx Ondansetron [Zofran ODT TAB] 8 mg PO Q8HR PRN #10 tab.rapdis 03/14/18 Unknown Rx Ibuprofen [Motrin 800 MG tab] 800 mg PO Q8HR PRN #20 tablet 10/25/18 Unknown Rx medroxyPROGESTERone ACETATE 5 mg PO QDAY #10 tablet 10/25/18 Unknown Rx [Provera] Ibuprofen [Motrin] 800 mg PO Q8HR PRN #30 tablet 02/09/19 Unknown Rx Phenytoin [Dilantin] 300 mg PO BID 30 Days capsule 02/09/19 Unknown Rx Acetaminophen [Acetaminophen ER] 650 mg PO Q6H PRN #30 tablet.er 08/13/19 Unknown Rx HYDROcodone/APAP 5-325 [[place] 1 - 2 each PO Q6HR PRN #14 tablet 09/21/19 Unknown Rx 5-325 mg TAB] ED Physical Exam - General Limitations: Other General appearance: alert, in distress (Mild from pain) - Head Head exam: Present: atraumatic, normocephalic - Eye Eye exam: Present: normal appearance, PERRL, EOMI - Neck Neck exam: Present: full ROM - Respiratory Respiratory exam: Absent: respiratory distress - Cardiovascular Cardiovascular Exam: Present: regular rate - GI/Abdominal GI/Abdominal exam: Present: soft. Absent: distended, tenderness - Extremities Exam Extremities exam: Present: other (Severe ttp along the lateral aspect of right foot including base of the 5th metatarsal bone; there is also moderate bruising and swelling in that area. ROM reduced due to pain. No acute deformity noted. Dorsalis pedis pulse nl. Cap refill nl. Left foot show mod ttp along medial aspect of foot more so at base of the first metatarsal bone and tarsal bones on medial aspect of left foot. There is no apparent swelling, bruising, erythema or deformity; Dorsalis pedis pulse, and cap refill nl. ROM is painful but otherwise normal. ) - Neurological Exam Neurological exam: Present: alert, oriented X3, CN II-XII intact, abnormal gait (Due to pain), motor sensory deficit. Absent: normal gait - Psychiatric Psychiatric exam: Present: normal affect, normal mood, anxious - Skin Skin exam: Present: intact - Orthopedic Splinting/Casting Injury #1 Lower Extremity Injury Location: foot (Right) Lower Extremity Immobilizer: posterior splint Other Orthopedic Equipment: crutches ED Medical Decision Making - Lab Data Result diagrams: 09/20/19 20:21 09/20/19 20:21 - Radiology Data Radiology results: report reviewed Patient: GABRIELLA WEEKS MR#: [id number] : 1985 Acct:[id number] Age/Sex: 34 / F ADM Date: 09/20/19 Loc: ED Attending Dr: Ordering Physician: DEBI SAHA Date of Service: 09/20/19 Procedure(s): XR foot 3+V RT Accession Number(s): [id number] cc: DEBI SAHA Fluoro Time In Minutes: RIGHT FOOT 3 VIEW(S) INDICATION / CLINICAL INFORMATION: pain after injury COMPARISON: None available. FINDINGS: BONES / JOINT(S): Moderately displaced avulsion fracture of the base of the 5th metatarsal. Fracture fragment is retracted by about 4 mm with slight lateral angulation. No other acute fracture. Moderate-sized type II accessory medial navicular ossicle. SOFT TISSUES: No significant abnormality. A DDITIONAL FINDINGS: None. IMPRESSION: 1. Moderately displaced avulsion fracture of the base of the 5th metatarsal. Signer Name: Evelia Franklin MD Signed: 09/20/2019 10:02 PM Workstation Name: [id number] Transcribed By: DT Dictated By: Dom Franklin MD Electronically Authenticated By: Dom Franklin MD Signed Date/Time: 09/20/192201 DD/ 00 TD/TT: Patient: GABRIELLA WEEKS MR#: [id number] : 1985 Acct:[id number] Age/Sex: 34 / F ADM Date: 09/20/19 Loc: ED Attending Dr: Ordering Physician: MAXI CASTORENA Date of Service: 09/20/19 Procedure(s): XR foot 2V LT Accession Number(s): [id number] cc: MAXI J. RAFFAELE Fluoro Time In Minutes: LEFT FOOT 2 VIEWS INDICATION: MAIN: fall/LT footpain. COMPARISON: No relevant prior imaging study available. FINDINGS: No acute fracture is seen. Cortical irregularity at the base of the fifth metatarsal may be related to remote healed fracture. Accessory navicular is noted. IMPRESSION: 1. No acute findings. Signer Name: Juvenal Alvarado MD Signed: 09/21/2019 12:04 AM Workstation Name: [id number] Transcribed By: DERIAN Dictated By: Juvenal Alvarado MD Electronically Authenticated By: Juvenal Alvarado MD Signed Date/Time: 09/21/19 0004 DD/ TD/TT: Patient: GABRIELLA WEEKS MR#: [id number] : 1985 Acct:[id number] Age/Sex: 34 / F ADM Date: 09/20/19 Loc: ED Attending Dr: Ordering Physician: DEBI SAHA Date of Service: 09/20/19 Procedure(s): US OB >= 14 weeks Fetus Accession Number(s): [id number] cc: DEBI SAHA OB ultrasound FINDINGS: Single fetus is identified in transverse presentation with the head to maternal left. heart rate is 152 bpm. Cervix measures 4.7 cm in length and is closed. Placenta is posterior in location. Amniotic fluid volume measures 5 cm. Appropriate measurements reveal an MA of 15 weeks 2 days for an EDC of 03/11/2020. This correlates with the clinical dates. Right ovary has been removed. Left ovar y contains a 2.5 x 2.3 x 2 cm cyst. No abnormality seen. Signer Name: Preet Benites MD Signed: 09/20/2019 9:25 PM Workstation Name: [id number] Transcribed By: SHIRA Dictated By: Preet Benites MD Electronically Authenticated By: Preet Benites MD Signed Date/Time: 09/20/192124 DD/ 20 TD/TT: - Medical Decision Making Xray of right foot show avulsion fracture base of 5 metatarsal bone. Pt placed in short posterior fiberglass splint and crutches. OB US normal and she has no abd pain or vag symptoms and no abd ttp on exam. She is awake, alert and oriented x3 and neurologically intact and currently not in any acute distress. Discussed with patient importance of following up with orthopedic next week. She is given referral to note specialist. Recommend elevate leg as often as possible and only take medication as prescribed. Patient stable for d/c. Critical care attestation.: If time is entered above; I have spent that time in minutes in the direct care of this critically ill patient, excluding procedure time. ED Disposition Clinical Impression: Foot fracture, right Disposition: DC- TO HOME OR SELFCARE Is pt being admited?: No Does the pt Need Aspirin: No Condition: Stable Instructions: Foot Fracture in Adults (ED), Splint Care (ED) Prescriptions: HYDROcodone/APAP 5-325 [[place] 5-325 mg TAB] 1 - 2 each PO Q6HR PRN #14 tablet PRN Reason: Pain Referrals: PASTORA MELLO MD [Staff Physician] - 3-5 Days Time of Disposition: 00:46
--- NOTE | 2019-09-21 00:08 | XRay Report ---
LEFT FOOT 2 VIEWS INDICATION: MAIN: fall/LT footpain. COMPARISON: No relevant prior imaging study available. FINDINGS: No acute fracture is seen. Cortical irregularity at the base of the fifth metatarsal may be related t o remote healed fracture. Accessory navicular is noted. IMPRESSION: 1. No acute findings. Signer Name: Juvenal Alvarado MD Signed: 09/21/2019 12:04 AM Workstation Name: [id number]
== END 2019-09-21 01:22 | disposition home or self-care (01) ==
LOC: ED 18:48
DX: O9A.212 Injury, poisoning and certain other consequences of external causes complicating pregnancy, second trimester (principal); S92.351A Displaced fracture of fifth metatarsal bone, right foot, initial encounter for closed fracture; I25.2 Old myocardial infarction; Z86.73 Personal history of transient ischemic attack (TIA), and cerebral infarction without residual deficits; F31.9 Bipolar disorder, unspecified; F20.9 Schizophrenia, unspecified; F17.200 Nicotine dependence, unspecified, uncomplicated; W18.30XA Fall on same level, unspecified, initial encounter; Y93.89 Activity, other specified; Y92.89 Other specified places as the place of occurrence of the external cause; Y99.8 Other external cause status
CPT/HCPCS: 36415; 76805; 80053; 83690; 84702; 85025; 99284

== ENCOUNTER 2019-11-13 02:44 | Outpatient (CLI) | payer MEDICARE ==
[2019-11-13 03:12] VITALS: BP 103/49
[2019-11-13 04:27] LABS: Bilirubin,Urine NEG (Negative); Blood,Urine NEG (Negative); Color,Urine Yellow (Yellow); Mucus,Urine FEW /HPF; Protein,Urine <15 mg/dL mg/dL (Negative); Urobilinogen,Urine < 2.0 mg/dL (<2.0); WBC,Urine < 1.0 /HPF (0.0-6.0)
[2019-11-13 05:08] LABS: Amphetamine Screen,Urine PRESUMPTIVE NEGATIVE; Benzodiazepines Screen,Urine PRESUMPTIVE NEGATIVE; Cocaine Screen,Urine PRESUMPTIVE NEGATIVE; Methadone Screen,Urine PRESUMPTIVE NEGATIVE; Opiate Screen,Urine PRESUMPTIVE NEGATIVE
[2019-11-13 05:32] LABS: Cannabinoid Screen,Urine PRESUMPTIVE POSITIVE
== END 2019-11-13 04:50 | disposition left against medical advice (07) ==
LOC: TRG 02:44
PROVIDERS: ATTEND Obstetrics & Gynecology
DX: O26.892 Other specified pregnancy related conditions, second trimester (principal); M54.5 Low back pain; R10.9 Unspecified abdominal pain; Z3A.24 24 weeks gestation of pregnancy
CPT/HCPCS: 80307; 81001

== ENCOUNTER 2019-12-08 20:02 | Emergency (ER) | payer MEDICARE ==
--- NOTE | 2019-12-08 20:22 | Emergency Department Report ---
ED General Adult HPI - General Chief complaint: Neuro Symptoms/Deficit Stated complaint: POSSIBLE TIA/WEAKNESS/DIFF SPEAKING Time Seen by Provider: 12/08/19 20:07 Source: patient, EMS Mode of arrival: Stretcher Limitations: No Limitations - History of Present Illness Initial comments: Ms. Ortiz is a 34 yo female with hx of bipolar disorder, PTSD, HTN, migraine, seizure and TIA who woke up from a nap with difficulty speaking blurred vision and arm weakness. She explains, "I am really stressed. My roommate does not care about me." She arrives per EMS. Denies headache, chest pain, weakness or numbness. I evaluated this patient 5 days ago for acute dimple. She was is currently 27 . She says, "I don't think I am anymore." -: Gradual, hour(s) (3) Consistency: now resolved Improves with: none Worsens with: none Associated Symptoms: other ("I am stressed out") - Related Data Home Medications Medication Instructions Recorded Confirmed Last Taken Klonopin 1 mg PO QDAY 11/13/19 11/13/19 11/12/19 10:00 Latuda 20 mg PO QDAY 11/13/19 11/13/19 11/12/19 21:00 Complete Caplet 1 tab PO QDAY 11/13/19 11/13/19 11/12/19 10:00 Promethazine 25 mg PO PRN 11/13/19 11/13/19 Unknown hydrOXYzine PAMOATE [Vistaril] 1 tab PO PRN 11/13/19 11/13/19 11/10/19 20:00 tiZANidine 4 mg PO PRN PRN 11/13/19 11/13/19 11/12/19 21:00 Previous Rx's Medication Instructions Recorded Last Taken Type Acetaminophen/Codeine [Tylenol 1 tab PO Q6H PRN #10 tab 01/18/18 Unknown Rx /Codeine # 3 tab] Amoxicillin [Trimox CAP] 500 mg PO Q8H #30 capsule 01/18/18 Unknown Rx Chlorhexidine Mouthwash [Peridex] 15 ml MM BID #1 bottle 01/18/18 Unknown Rx Ibuprofen [Motrin] 800 mg PO Q8HR PRN #20 tablet 01/18/18 Unknown Rx Phenytoin (25 mg/ml) [Dilantin] 100 mg PO Q8HR #30 tab 01/20/18 Unknown Rx Phenytoin [Dilantin] 500 mg PO BID #30 capsule 01/20/18 Unknown Rx levETIRAcetam [Keppra XR TAB] 1,000 mg PO QDAY #30 tab.er.24h 01/20/18 Unknown Rx Omeprazole 20 mg PO DAILY #14 tablet.dr 03/14/18 Unknown Rx Ondansetron [Zofran ODT TAB] 8 mg PO Q8HR PRN #10 tab.rapdis 03/14/18 Unknown Rx Ibuprofen [Motrin 800 MG tab] 800 mg PO Q8HR PRN #20 tablet 10/25/18 Unknown Rx medroxyPROGESTERone ACETATE 5 mg PO QDAY #10 tablet 10/25/18 Unknown Rx [Provera] Ibuprofen [Motrin] 800 mg PO Q8HR PRN #30 tablet 02/09/19 Unknown Rx Phenytoin [Dilantin] 300 mg PO BID 30 Days capsule 02/09/19 Unknown Rx Acetaminophen [Acetaminophen ER] 650 mg PO Q6H PRN #30 tablet.er 08/13/19 Unknown Rx HYDROcodone/APAP 5-325 [[place] 1 - 2 each PO Q6HR PRN #14 tablet 09/21/19 Unknown Rx 5-325 mg TAB] Allergies Allergy/AdvReac Type Severity Reaction Status Date / Time carbamazepine [From Tegretol] Allergy Seizure Verified 12/03/19 09:52 morphine Allergy Rash Verified 12/03/19 09:52 lamotrigine [From Lamictal] AdvReac Seizure Verified 12/03/19 09:52 ED Review of Systems ROS: Stated complaint: POSSIBLE TIA/WEAKNESS/DIFF SPEAKING Other details as noted in HPI Comment: All other systems reviewed and negative Constitutional: denies: fever, malaise Respiratory: denies: cough Cardiovascular: denies: chest pain Gastrointestinal: denies: abdominal pain, nausea, vomiting ED Past Medical Hx - Past Medical History Previous Medical History?: Yes Hx Hypertension: No Hx CVA: Yes (no deficits TIA) Hx Heart Attack/AMI: Yes Hx Diabetes: Yes Hx Deep Vein Thrombosis: No Hx Renal Disease: No Hx Sickle Cell Disease: No Hx Seizures: Yes (DON"T REMEMBER LAST ATTACK) Hx Psychiatric Treatment: Yes (anxiety, bipolar, schizophrenia, PTSD) Hx Asthma: No Additional medical history: Hx of seizures, bi polar. - Surgical History Additional Surgical History: Right oophorectomy - Social History Smoking Status: Never Smoker Substance Use Type: None - Medications Home Medications: Home Medications Medication Instructions Recorded Confirmed Last Taken Type Acetaminophen/Codeine [Tylenol 1 tab PO Q6H PRN #10 tab 01/18/18 11/13/19 Unknown Rx /Codeine # 3 tab] Amoxicillin [Trimox CAP] 500 mg PO Q8H #30 capsule 01/18/18 11/13/19 Unknown Rx Chlorhexidine Mouthwash [Peridex] 15 ml MM BID #1 bottle 01/18/18 11/13/19 Unknown Rx Ibuprofen [Motrin] 800 mg PO Q8HR PRN #20 tablet 01/18/18 11/13/19 Unknown Rx Phenytoin (25 mg/ml) [Dilantin] 100 mg PO Q8HR #30 tab 01/20/18 11/13/19 Unknown Rx Phenytoin [Dilantin] 500 mg PO BID #30 capsule 01/20/18 11/13/19 Unknown Rx levETIRAcetam [Keppra XR TAB] 1,000 mg PO QDAY #30 tab.er.24h 01/20/18 11/13/19 Unknown Rx Omeprazole 20 mg PO DAILY #14 tablet.dr 03/14/18 11/13/19 Unknown Rx Ondansetron [Zofran ODT TAB] 8 mg PO Q8HR PRN #10 tab.rapdis 03/14/18 11/13/19 Unknown Rx Ibuprofen [Motrin 800 MG tab] 800 mg PO Q8HR PRN #20 tablet 10/25/18 11/13/19 Unknown Rx medroxyPROGESTERone ACETATE 5 mg PO QDAY #10 tablet 10/25/18 11/13/19 Unknown Rx [Provera] Ibuprofen [Motrin] 800 mg PO Q8HR PRN #30 tablet 02/09/19 11/13/19 Unknown Rx Phenytoin [Dilantin] 300 mg PO BID 30 Days capsule 02/09/19 11/13/19 Unknown Rx Acetaminophen [Acetaminophen ER] 650 mg PO Q6H PRN #30 tablet.er 08/13/19 11/13/19 Unknown Rx HYDROcodone/APAP 5-325 [[place] 1 - 2 each PO Q6HR PRN #14 tablet 09/21/19 11/13/19 Unknown Rx 5-325 mg TAB] Klonopin 1 mg PO QDAY 11/13/19 11/13/19 11/12/19 10:00 History Latuda 20 mg PO QDAY 11/13/19 11/13/19 11/12/19 21:00 History Complete Caplet 1 tab PO QDAY 11/13/19 11/13/19 11/12/19 10:00 History Promethazine 25 mg PO PRN 11/13/19 11/13/19 Unknown History hydrOXYzine PAMOATE [Vistaril] 1 tab PO PRN 11/13/19 11/13/19 11/10/19 20:00 History tiZANidine 4 mg PO PRN PRN 11/13/19 11/13/19 11/12/19 21:00 History ED Physical Exam - General Limitations: No Limitations General appearance: alert, in no apparent distress - Head Head exam: Present: atraumatic, normocephalic - Eye Eye exam: Present: normal appearance - ENT ENT exam: Present: mucous membranes moist - Neck Neck exam: Present: normal inspection, full ROM - Respiratory Respiratory exam: Present: normal lung sounds bilaterally. Absent: respiratory distress, wheezes, rales, rhonchi - Cardiovascular Cardiovascular Exam: Present: regular rate, normal rhythm, normal heart sounds. Absent: systolic murmur, diastolic murmur, rubs, gallop - GI/Abdominal GI/Abdominal exam: Present: soft, normal bowel sounds. Absent: distended, tenderness, guarding, rebound - Extremities Exam Extremities exam: Present: normal inspection - Neurological Exam Neurological exam: Present: alert, oriented X3 - Expanded Neurological Exam Expanded Patient oriented to: Present: person Speech: Present: fluid speech Cranial nerves: EOM's Intact: Normal Cerebellar function: Finger to Nose: Normal Upper motor neuron: Alen Neglect: Normal Sensory exam: Upper Extremity Light Touch: Normal Motor strength exam: RUE: 5, LUE: 5, RLE: 5, LLE: 5 Best Eye Response ([place]): (4) open spontaneously Best Motor Response ([place]): (6) obeys commands Best Verbal Response ([place]): (5) oriented [place] Total: 15 - Psychiatric Psychiatric exam: Present: normal mood, depressed, flat affect. Absent: juarez icidal ideation, suicidal ideation - Skin Skin exam: Present: warm, dry, intact, normal color. Absent: rash ED Course Vital Signs 12/08/19 12/08/19 20:11 20:20 Temperature 98.2 F Pulse Rate 78 74 Respiratory 16 16 Rate Blood Pressure 117/68 Blood Pressure 135/82 [Right] O2 Sat by Pulse 97 100 Oximetry ED Medical Decision Making - Lab Data Result diagrams: 12/08/19 20:31 12/08/19 20:31 - Medical Decision Making 1. Mrs Ortiz presents with reported trouble speaking, blurry vision and arm weakness. Normal neuro exam. I do not suspect TIA. Possibly atypical migraine 2. "Stressed out" no SI HI, I recently evaluated Ms. Ortiz during a manic episode She was discharged from the ED after observation 3. Third trimester confirmed with ultrasound patient is 26 weeks 4 days . Patient denies abdominal pain vaginal bleeding or loss of fluid. Patient is discharged home. Critical care attestation.: If time is entered above; I have spent that time in minutes in the direct care of this critically ill patient, excluding procedure time. ED Disposition Clinical Impression: Third trimester , Stress reaction causing mixed disturbance of emotion and conduct Disposition: DC-01 TO HOME OR SELFCARE Is pt being admited?: No Does the pt Need Aspirin: No Condition: Stable Additional Instructions: Please follow-up with your psychiatrist as soon as possible.
[2019-12-08 20:45] LABS: Basophils % (Auto) 0.5 % (0.0-1.8); Eosinophils % (Auto) 0.1 % (0.0-4.3); Hematocrit 31.2 % (30.3-42.9); Hemoglobin 10.6 gm/dl (10.1-14.3); Lymphocytes # (Auto) 2.1 K/mm3 (1.2-5.4); Lymphocytes % (Auto) 33.4 % (13.4-35.0); Mean Corpuscular HGB Conc 34 % (30-34); Mean Corpuscular Volume 82 fl (79-97); Monocytes # (Auto) 0.5 K/mm3 (0.0-0.8); Monocytes % (Auto) 7.8 % (0.0-7.3); Platelet Count 251 K/mm3 (140-440); Red Blood Count 3.82 M/mm3 (3.65-5.03); Red Cell Distribution Width 19.5 % (13.2-15.2)
[2019-12-08 21:08] LABS: Alanine Aminotransferase 20 units/L (7-56); Albumin 3.5 g/dL (3.9-5); BUN/Creatinine Ratio 8; Blood Urea Nitrogen 4 mg/dL (7-17); Hemolysis Index 18
--- NOTE | 2019-12-08 22:49 | Ultrasound Report ---
US OB >= 14 weeks Fetus INDICATION / CLINICAL INFORMATION: possible miscarriage. COMPARISON: 12/03/2019 FINDINGS: Single viable intrauterine gestation in the cephalic presentation. heart rate is recorded at 1 42 bpm The grade 1 placenta is posterior and free of the os. SANTIAGO 15. measurements: BPD 6.3 equal to 25 weeks 3 days Head circumference 24.5 equal to 26 weeks 4 days Abdominal circumference 22.6 equal to 27 weeks Femur length 01/02/2027 weeks Estimated body weight 991 g. Cervical length is 4.4 cm. IMPRESSION: 1. Viable single 26 week 4 day intrauterine gestation. Signer Name: Ilya Cao MD Signed: 12/08/2019 10:45 PM Workstation Name: [id number]
[2019-12-08 23:08] VITALS: BP 115/58
== END 2019-12-08 23:08 | disposition home or self-care (01) ==
LOC: ED 20:02
DX: O99.343 Other mental disorders complicating pregnancy, third trimester (principal); O26.893 Other specified pregnancy related conditions, third trimester; O24.913 Unspecified diabetes mellitus in pregnancy, third trimester; F43.8 Other reactions to severe stress; F25.0 Schizoaffective disorder, bipolar type; F41.9 Anxiety disorder, unspecified; Z79.899 Other long term (current) drug therapy; Z98.890 Other specified postprocedural states; Z88.6 Allergy status to analgesic agent; Z86.73 Personal history of transient ischemic attack (TIA), and cerebral infarction without residual deficits; Z86.69 Personal history of other diseases of the nervous system and sense organs; Z88.8 Allergy status to other drugs, medicaments and biological substances; Z3A.26 26 weeks gestation of pregnancy
CPT/HCPCS: 36415; 76805; 80053; 84702; 85025

== ENCOUNTER 2020-04-15 20:42 | Emergency (ER) | payer MEDICARE ==
[2020-04-15] MEDS ORDERED: ZIPRASIDONE MESYLATE 20 MG VIAL IM ONE (21:11)
--- NOTE | 2020-04-15 22:15 | Emergency Department Report ---
<EDELMIRA CEBALLOS - Last Filed: 04/15/20 22:05> ED Psych HPI - General Chief Complaint: Psych Stated Complaint: BIPOLAR EPISODE Time Seen by Provider: 04/15/20 21:10 Source: patient, EMS Mode of arrival: Stretcher - History of Present Illness Initial Comments: Patient is 34 years old female with history of bipolar disorder. Patient brought to the emergency room via EMS after patient was found naked and dancing in her front yard. Neighbors called EMS. Upon arrival to the ER patient is agitated and refused labs. Patient is manic. Patient chemically restrained with Geodon 20 mg IM. Patient is not communicating at this moment. MD Complaint: altered mental status Associated Psychiatric Symptoms: racing thoughts Quality: constant - Related Data Home Medications Medication Instructions Recorded Confirmed Last Taken Ferrous Sulfate 1 tab PO DAILY 03/02/20 04/16/20 03/04/20 11:33 Vit-Fe Fumar-FA [ 1 tab PO DAILY 03/02/20 04/16/20 03/04/20 11:33 Vitamin] clonazePAM [Klonopin] 2 tab PO BID 03/02/20 04/16/20 03/04/20 11:32 risperiDONE [RisperDAL] 1 tab PO BID 03/02/20 04/16/20 03/04/20 05:00 tiZANidine [Zanaflex 4mg TAB] 1 tab PO DAILY 03/02/20 04/16/20 03/04/20 05:00 Allergies Allergy/AdvReac Type Severity Reaction Status Date / Time carbamazepine [From Tegretol] Allergy Seizure Verified 01/15/20 10:26 morphine Allergy Rash Verified 01/15/20 10:26 lamotrigine [From Lamictal] AdvReac Seizure Verified 01/15/20 10:26 levetiracetam [From Keppra] AdvReac Seizure Verified 03/02/20 20:38 ED Review of Systems Comment: Unobtainable due to pts medical conditions ED Past Medical Hx - Past Medical History Previous Medical History?: Yes Hx Hypertension: No Hx CVA: Yes (no deficits TIA) Hx Heart Attack/AMI: Yes Hx Congestive Heart Failure: No Hx Diabetes: No Hx Deep Vein Thrombosis: No Hx Pulmonary Embolism: No Hx GERD: No Hx Liver Disease: No Hx Renal Disease: No Hx Sickle Cell Disease: No Hx Arthritis: No Hx Headaches / Migraines: No Hx Seizures: Yes Hx Kidney Stones: No Hx Psychiatric Treatment: Yes (anxiety, bipolar, PTSD) Hx Asthma: No Hx COPD: No Hx Tuberculosis: No Hx Dementia: No Hx HIV: No Additional medical history: Hx of seizures - Surgical History Past Surgical History?: Yes Additional Surgical History: Right oophorectomy. tubes to ears as child - Social History Smoking Status: Current Every Day Smoker Substance Use Type: None - Medications Home Medications: Home Medications Medication Instructions Recorded Confirmed Last Taken Type Ferrous Sulfate 1 tab PO DAILY 03/02/20 04/16/20 03/04/20 11:33 History Vit-Fe Fumar-FA [ 1 tab PO DAILY 03/02/20 04/16/20 03/04/20 11:33 History Vitamin] clonazePAM [Klonopin] 2 tab PO BID 03/02/20 04/16/20 03/04/20 11:32 History risperiDONE [RisperDAL] 1 tab PO BID 03/02/20 04/16/20 03/04/20 05:00 History tiZANidine [Zanaflex 4mg TAB] 1 tab PO DAILY 03/02/20 04/16/20 03/04/20 05:00 History ED Physical Exam - General Limitations: No Limitations General appearance: anxious, other (agitated) - Head Head exam: Present: atraumatic, normocephalic, normal inspection - Eye Eye exam: Present: normal appearance - ENT ENT exam: Present: normal exam, normal orophraynx, mucous membranes moist - Neck Neck exam: Present: normal inspection, full ROM. Absent: tenderness, mening ismus - Respiratory Respiratory exam: Present: normal lung sounds bilaterally - Cardiovascular Cardiovascular Exam: Present: regular rate, normal rhythm, normal heart sounds - GI/Abdominal GI/Abdominal exam: Present: soft, normal bowel sounds. Absent: distended, tenderness, guarding, rebound, rigid, organomegaly, mass, bruit, pulsatile mass, hernia - Extremities Exam Extremities exam: Present: normal inspection, full ROM, normal capillary refill. Absent: pedal edema, calf tenderness - Neurological Exam Neurological exam: Present: alert - Psychiatric Psychiatric exam: Present: agitated, manic - Skin Skin exam: Present: warm, intact, normal color ED Disposition Clinical Impression: Acute psychosis, Medical clearance for psychiatric admission Disposition: DC/TX-65 PSY HOSP/PSY UNIT Condition: Stable <JEANNETTE BAUTISTA - Last Filed: 04/16/20 15:08> ED Review of Systems ROS: Stated complaint: BIPOLAR EPISODE Other details as noted in HPI ED Course Vital Signs 04/15/20 04/16/20 04/16/20 20:59 00:59 07:58 Temperature 99.2 F 98.9 F 98.0 F Pulse Rate 63 87 73 Respiratory 18 20 20 Rate Blood Pressure 125/78 136/68 116/82 [Right] O2 Sat by Pulse 95 98 99 Oximetry 04/16/20 08:14 Temperature Pulse Rate Respiratory 14 Rate Blood Pressure [Right] O2 Sat by Pulse Oximetry ED Medical Decision Making - Lab Data Result diagrams: 04/15/20 23:29 04/15/20 23:29 - Medical Decision Making This patient was seen by my colleague and was held in the emergency department for a psychiatric evaluation/assessment secondary to acute psychosis. The see ent was seen by the mental health bias binding folder, Belinda, who agrees that the patient does exhibit signs of acute psychosis with a diagnosis held of bipolar disorder. She does meet criteria for a 1013 and for inpatient stabilization. The patient was accepted for transfer to [facility] but they have requested the patient receive a loading dose of Depakote for history of seizures. The patient has not had any seizures while in the emergency department. They plan to treat her with Depakote so a loading dose of Depakote was given here in the emergency department. I have filled out a 1013 at the behest of the psychiatric team and the patient has been accepted to [facility]. Her vital signs have been reassuring throughout her ED course. Labs have been mostly unremarkable. Patient is medically cleared for psychiatric placement. Critical Care Time: No Critical care attestation.: If time is entered above; I have spent that time in minutes in the direct care of this critically ill patient, excluding procedure time. ED Disposition Is pt being admited?: No Time of Disposition: 15:07
[2020-04-16 00:16] LABS: Blood Urea Nitrogen 11 mg/dL (7-17); Calcium 9.7 mg/dL (8.4-10.2); Hemolysis Index 3
[2020-04-16 00:25] LABS: BUN/Creatinine Ratio 16
[2020-04-16 00:28] LABS: Basophils % (Auto) 0.5 % (0.0-1.8); Eosinophils % (Auto) 0.1 % (0.0-4.3); Hematocrit 40.8 % (30.3-42.9); Hemoglobin 13.7 gm/dl (10.1-14.3); Lymphocytes # (Auto) 2.3 K/mm3 (1.2-5.4); Lymphocytes % (Auto) 28.4 % (13.4-35.0); Mean Corpuscular HGB Conc 34 % (30-34); Mean Corpuscular Volume 91 fl (79-97); Monocytes # (Auto) 0.7 K/mm3 (0.0-0.8); Monocytes % (Auto) 8.3 % (0.0-7.3); Platelet Count 294 K/mm3 (140-440); Red Blood Count 4.48 M/mm3 (3.65-5.03)
[2020-04-16 08:00] VITALS: BP 116/82
[2020-04-16] MEDS ORDERED: ONDANSETRON 4 MG ODT TAB PO PRN (08:04)
--- NOTE | 2020-04-16 08:23 | Event Note ---
Date: 04/16/20 [id number] evaluation performed by myself. Patient required seclusion as she was running away. As needed Haldol/Ativan ordered. No active vomiting is noted on my evaluation. Patient is awake, standing spontaneously, breathing spontaneously, moving 4 extremities, appears very anxious.
[2020-04-16 08:45] LABS: Bacteria,Urine 1+ /HPF (Negative); Bilirubin,Urine NEG (Negative); Blood,Urine MOD (Negative); Color,Urine Amber (Yellow); Mucus,Urine 3+ /HPF
[2020-04-16 08:52] LABS: Amphetamine Screen,Urine Negative; Benzodiazepines Screen,Urine Negative; Cocaine Screen,Urine Negative; Methadone Screen,Urine Negative; Opiate Screen,Urine Negative
[2020-04-16] MEDS: LORazepam 2 MG/ML VIAL IM PRN ×2 (08:57→20:41)
[2020-04-16] MEDS: HALOPERIDOL LACTATE 5 MG/1 ML INJ IM PRN ×2 (08:57→20:41)
[2020-04-16 09:12] LABS: Cannabinoid Screen,Urine Positive
[2020-04-16] MEDS ORDERED: DIVALPROEX DR 500 MG TAB PO ONE (14:01)
== END 2020-04-16 20:49 ==
LOC: ED 20:42 → EEVIPCON 20:42 → ED 04-16 20:49
DX: F23 Brief psychotic disorder (principal); F17.200 Nicotine dependence, unspecified, uncomplicated; F31.9 Bipolar disorder, unspecified; Z79.899 Other long term (current) drug therapy
CPT/HCPCS: 36415; 80048; 80307; 81001; 84703; 85025; 96372; 99285; J1630; J2060; J3486; 80320; G0480; Q0162

== ENCOUNTER 2021-02-07 23:23 | Emergency (ER) | payer MEDICARE | END 2021-02-07 23:38 | disposition left against medical advice (07) | LOC: ED 23:23 | DX: R53.1 Weakness (principal); Z53.21 Procedure and treatment not carried out due to patient leaving prior to being seen by health care provider ==

== ENCOUNTER 2021-02-24 05:50 | Emergency (ER) | payer MEDICARE ==
--- NOTE | 2021-02-24 09:24 | Emergency Department Report ---
ED General Adult HPI - General Chief complaint: Earache Stated complaint: EARACHE Time Seen by Provider: 02/24/21 09:06 Source: patient Mode of arrival: Ambulatory Limitations: No Limitations - History of Present Illness Initial comments: 35 year old female presents to ED with complaints of right ear pain and right lower jaw/dental pain. Patient states her symptoms started about 2 weeks ago. She states she has been flushing her ears with peroxide and rinsing her mouth peroxide. She states the pain did improve but it returned again about 2-3 days ago. She states she has been taking motrin without relief. She denies any URI symptoms or cough. She denies any bleeding or drainage from ear. She denies any ST, facial swelling, redness or any other symptoms at this time. MD Complaint: Right ear pain/right jaw/dental pain -: week(s) (2) - Related Data Home Medications Medication Instructions Recorded Confirmed Last Taken Ferrous Sulfate 1 tab PO DAILY 03/02/20 04/16/20 03/04/20 11:33 Vit-Fe Fumar-FA [ 1 tab PO DAILY 03/02/20 04/16/20 03/04/20 11:33 Vitamin] clonazePAM [Klonopin] 2 tab PO BID 03/02/20 04/16/20 03/04/20 11:32 risperiDONE [RisperDAL] 1 tab PO BID 03/02/20 04/16/20 03/04/20 05:00 tiZANidine [Zanaflex 4mg TAB] 1 tab PO DAILY 03/02/20 04/16/20 03/04/20 05:00 Previous Rx's Medication Instructions Recorded Last Taken Type Amoxicillin [Trimox CAP] 500 mg PO Q8H #21 capsule 02/24/21 Unknown Rx Cetirizine HCl [Zyrtec 10mg tab] 10 mg PO DAILY #20 tablet 02/24/21 Unknown Rx Ketorolac [Toradol] 10 mg PO Q6H PRN #20 tablet 02/24/21 Unknown Rx Neomy/Polymyx B/Hc (Otic) Soln 3 drops OTIC BID 7 Days #1 bottle 02/24/21 Unknown Rx [Cortisporin (Otic) Soln] Allergies Allergy/AdvReac Type Severity Reaction Status Date / Time carbamazepine [From Tegretol] Allergy Seizure Verified 01/15/20 10:26 morphine Allergy Rash Verified 01/15/20 10:26 lamotrigine [From Lamictal] AdvReac Seizure Verified 01/15/20 10:26 levetiracetam [From Keppra] AdvReac Seizure Verified 03/02/20 20:38 ED Review of Systems ROS: Stated complaint: EARACHE Other details as noted in HPI Comment: All other systems reviewed and negative Constitutional: denies: chills, fever Eyes: denies: eye pain, eye discharge, vision change ENT: ear pain, dental pain, other (right lower jaw pain ) Respiratory: denies: cough, shortness of breath, SOB with exertion, SOB at rest, wheezing Cardiovascular: denies: chest pain, palpitations, dyspnea on exertion, edema, syncope, paroxysmal nocturnal dyspnea Gastrointestinal: denies: abdominal pain, nausea, vomiting, diarrhea, constipation, hematemesis Genitourinary: denies: urgency, dysuria, discharge Musculoskeletal: denies: back pain, joint swelling, arthralgia Skin: denies: rash, lesions, change in color, change in hair/nails, pruritus Neurological: denies: headache, weakness, numbness, paresthesias, confusion, abnormal gait, vertigo Psychiatric: denies: anxiety, depression, auditory hallucinations, visual hallucinations, homicidal thoughts, suicidal thoughts Hematological/Lymphatic: denies: easy bleeding, easy bruising ED Past Medical Hx - Past Medical History Hx Hypertension: No Hx CVA: Yes (no deficits TIA) Hx Heart Attack/AMI: Yes Hx Congestive Heart Failure: No Hx Diabetes: No Hx Deep Vein Thrombosis: No Hx Pulmonary Embolism: No Hx GERD: No Hx Liver Disease: No Hx Renal Disease: No Hx Sickle Cell Disease: No Hx Arthritis: No Hx Headaches / Migraines: No Hx Seizures: Yes Hx Kidney Stones: No Hx Psychiatric Treatment: Yes (anxiety, bipolar, PTSD) Hx Asthma: No Hx COPD: No Hx Tuberculosis: No Hx Dementia: No Hx HIV: No Additional medical history: Hx of seizures - Surgical History Past Surgical History?: Yes Additional Surgical History: Right oophorectomy. tubes to ears as child - Social History Smoking Status: Current Every Day Smoker Substance Use Type: None - Medications Home Medications: Home Medications Medication Instructions Recorded Confirmed Last Taken Type Ferrous Sulfate 1 tab PO DAILY 03/02/20 04/16/20 03/04/20 11:33 History Vit-Fe Fumar-FA [ 1 tab PO DAILY 03/02/20 04/16/20 03/04/20 11:33 History Vitamin] clonazePAM [Klonopin] 2 tab PO BID 03/02/20 04/16/20 03/04/20 11:32 History risperiDONE [RisperDAL] 1 tab PO BID 03/02/20 04/16/20 03/04/20 05:00 History tiZANidine [Zanaflex 4mg TAB] 1 tab PO DAILY 03/02/20 04/16/20 03/04/20 05:00 History Amoxicillin [Trimox CAP] 500 mg PO Q8H #21 capsule 02/24/21 Unknown Rx Cetirizine HCl [Zyrtec 10mg tab] 10 mg PO DAILY #20 tablet 02/24/21 Unknown Rx Ketorolac [Toradol] 10 mg PO Q6H PRN #20 tablet 02/24/21 Unknown Rx Neomy/Polymyx B/Hc (Otic) Soln 3 drops OTIC BID 7 Days #1 bottle 02/24/21 Unknown Rx [Cortisporin (Otic) Soln] ED Physical Exam - General Limitations: No Limitations General appearance: alert, in no apparent distress - Head Head exam: Present: atraumatic, normocephalic, normal inspection - Eye Eye exam: Present: normal appearance, PERRL, EOMI Pupils: Present: normal accommodation - ENT ENT exam: Present: normal exam, mucous membranes moist - Expanded ENT Exam Expanded TM/Canal exam: Effusion: Right TM, Left TM, Canal Tenderness: Right TM (with mild erythema but no swelling or exudates) Mouth exam: Present: normal external inspection 1 - Dental Tenderness (Moderate tenderness), Other (severe decay; no apparent abscess) Throat exam: Positive: normal inspection - Neck Neck exam: Present: normal inspection, full ROM. Absent: meningismus, lymphadenopathy - Respiratory Respiratory exam: Present: respiratory distress - Cardiovascular Cardiovascular Exam: Present: regular rate - Neurological Exam Neurological exam: Present: alert, oriented X3, CN II-XII intact, normal gait - Psychiatric Psychiatric exam: Present: normal affect, normal mood - Skin Skin exam: Present: intact ED Course Vital Signs 02/24/21 02/24/21 07:53 09:39 Temperature 98.7 F Pulse Rate 85 88 Respiratory 20 16 Rate Blood Pressure 144/66 Blood Pressure 146/83 [Left] O2 Sat by Pulse 100 100 Oximetry Critical care attestation.: If time is entered above; I have spent that time in minutes in the direct care of this critically ill patient, excluding procedure time. ED Disposition Clinical Impression: Otitis externa, Pain due to dental caries, Eustachian tube obstruction Disposition: TO HOME OR SELFCARE Is pt being admited?: No Does the pt Need Aspirin: No Condition: Stable Instructions: Otitis Externa, [id number], Eustachian Tube Dysfunction, Dental Caries, Pediatric Additional Instructions: Take the toradol as prescribed to help with pain. Take the antibiotics and use the antibiotic ear drops as prescribed. Take the zyrtec as prescribed. Follow up with ENT if ear pain persist and the dentist (see list) as discussed. Return to ED if worse. Prescriptions: Neomy/Polymyx B/Hc (Otic) Soln [Cortisporin (Otic) Soln] 3 drops OTIC BID 7 Days #1 bottle Ketorolac [Toradol] 10 mg PO Q6H PRN #20 tablet PRN Reason: Pain Amoxicillin [Trimox CAP] 500 mg PO Q8H #21 capsule Cetirizine HCl [Zyrtec 10mg tab] 10 mg PO DAILY #20 tablet Referrals: LISY DEJESUS MD [Staff Physician] - 7-10 days (ENT specialist) Time of Disposition: 09:30
[2021-02-24 09:40] VITALS: BP 146/83
== END 2021-02-24 09:39 | disposition home or self-care (01) ==
LOC: ED 05:50
DX: H68.101 Unspecified obstruction of Eustachian tube, right ear (principal); H60.91 Unspecified otitis externa, right ear; K02.9 Dental caries, unspecified; I25.2 Old myocardial infarction; F25.0 Schizoaffective disorder, bipolar type; F17.200 Nicotine dependence, unspecified, uncomplicated; Z79.899 Other long term (current) drug therapy; Z88.8 Allergy status to other drugs, medicaments and biological substances; Z86.69 Personal history of other diseases of the nervous system and sense organs; Z86.73 Personal history of transient ischemic attack (TIA), and cerebral infarction without residual deficits; Z98.890 Other specified postprocedural states
CPT/HCPCS: 99281

== ENCOUNTER 2021-08-13 18:31 | Emergency (ER) | payer MEDICARE ==
[2021-08-13 20:48] LABS: Basophils % (Auto) 0.4 % (0.0-1.8); Eosinophils % (Auto) 0.1 % (0.0-4.3); Hematocrit 35.4 % (30.3-42.9); Lymphocytes # (Auto) 1.6 K/mm3 (1.2-5.4); Lymphocytes % (Auto) 21.4 % (13.4-35.0); Mean Corpuscular HGB Conc 31 % (30-34); Mean Corpuscular Volume 84 fl (79-97); Monocytes # (Auto) 0.6 K/mm3 (0.0-0.8); Monocytes % (Auto) 8.3 % (0.0-7.3); Platelet Count 294 K/mm3 (140-440); Red Blood Count 4.23 M/mm3 (3.65-5.03); Red Cell Distribution Width 17.6 % (13.2-15.2)
[2021-08-13 21:04] LABS: Blood Urea Nitrogen 7 mg/dL (7-17); Calcium 9.3 mg/dL (8.4-10.2); Hemolysis Index 11
[2021-08-13 21:12] LABS: BUN/Creatinine Ratio 10
--- NOTE | 2021-08-13 22:25 | Emergency Department Report ---
ED Psych HPI - General Chief Complaint: Psych Stated Complaint: SI Time Seen by Provider: 08/13/21 18:52 Source: EMS Mode of arrival: Ambulatory Limitations: No Limitations - History of Present Illness Initial Comments: 36-year-old female with a past medical history anxiety, seizures, PTSD, and bipolar disorder presents to the hospital with altered vision hallucinations. Patient states the voices tell her to kill herself. Her plan is to cut her eyes and feet off and to take a gun from an officer and shoot herself with it - Related Data Home Medications Medication Instructions Recorded Confirmed Last Taken Ferrous Sulfate 1 tab PO DAILY 03/02/20 04/16/20 03/04/20 11:33 Vit-Fe Fumar-FA [ 1 tab PO DAILY 03/02/20 04/16/20 03/04/20 11:33 Vitamin] clonazePAM [Klonopin] 2 tab PO BID 03/02/20 04/16/20 03/04/20 11:32 risperiDONE [RisperDAL] 1 tab PO BID 03/02/20 04/16/20 03/04/20 05:00 tiZANidine [Zanaflex 4mg TAB] 1 tab PO DAILY 03/02/20 04/16/20 03/04/20 05:00 Previous Rx's Medication Instructions Recorded Last Taken Type Amoxicillin [Trimox CAP] 500 mg PO Q8H #21 capsule 02/24/21 Unknown Rx Cetirizine HCl [Zyrtec 10mg tab] 10 mg PO DAILY #20 tablet 02/24/21 Unknown Rx Ketorolac [Toradol] 10 mg PO Q6H PRN #20 tablet 02/24/21 Unknown Rx Neomy/Polymyx B/Hc (Otic) Soln 3 drops OTIC BID 7 Days #1 bottle 02/24/21 Unknown Rx [Cortisporin (Otic) Soln] Allergies Allergy/AdvReac Type Severity Reaction Status Date / Time carbamazepine [From Tegretol] Allergy Seizure Verified 01/15/20 10:26 morphine Allergy Rash Verified 01/15/20 10:26 lamotrigine [From Lamictal] AdvReac Seizure Verified 01/15/20 10:26 levetiracetam [From Keppra] AdvReac Seizure Verified 03/02/20 20:38 ED Review of Systems ROS: Stated complaint: SI Other details as noted in HPI Comment: All other systems reviewed and negative ED Past Medical Hx - Past Medical History Hx Hypertension: No Hx CVA: Yes (no deficits TIA) Hx Heart Attack/AMI: Yes Hx Congestive Heart Failure: No Hx Diabetes: No Hx Deep Vein Thrombosis: No Hx Pulmonary Embolism: No Hx GERD: No Hx Liver Disease: No Hx Renal Disease: No Hx Sickle Cell Disease: No Hx Arthritis: No Hx Headaches / Migraines: No Hx Seizures: Yes Hx Kidney Stones: No Hx Psychiatric Treatment: Yes (anxiety, bipolar, PTSD) Hx Asthma: No Hx COPD: No Hx Tuberculosis: No Hx Dementia: No Hx HIV: No Additional medical history: Hx of seizures - Surgical History Additional Surgical History: Right oophorectomy. tubes to ears as child - Social History Smoking Status: Current Every Day Smoker Substance Use Type: None - Medications Home Medications: Home Medications Medication Instructions Recorded Confirmed Last Taken Type Ferrous Sulfate 1 tab PO DAILY 03/02/20 04/16/20 03/04/20 11:33 History Vit-Fe Fumar-FA [ 1 tab PO DAILY 03/02/20 04/16/20 03/04/20 11:33 History Vitamin] clonazePAM [Klonopin] 2 tab PO BID 03/02/20 04/16/20 03/04/20 11:32 History risperiDONE [RisperDAL] 1 tab PO BID 03/02/20 04/16/20 03/04/20 05:00 History tiZANidine [Zanaflex 4mg TAB] 1 tab PO DAILY 03/02/20 04/16/20 03/04/20 05:00 History Amoxicillin [Trimox CAP] 500 mg PO Q8H #21 capsule 02/24/21 Unknown Rx Cetirizine HCl [Zyrtec 10mg tab] 10 mg PO DAILY #20 tablet 02/24/21 Unknown Rx Ketorolac [Toradol] 10 mg PO Q6H PRN #20 tablet 02/24/21 Unknown Rx Neomy/Polymyx B/Hc (Otic) Soln 3 drops OTIC BID 7 Days #1 bottle 02/24/21 Unknown Rx [Cortisporin (Otic) Soln] ED Physical Exam - General Limitations: No Limitations - Other Other exam information: General: No acute distress Head: Atraumatic Eyes: normal appearance ENT: Moist mucous membranes Neck: Normal appearance, no midline tenderness Chest: Clear to auscultation bilaterally CV: Regular rate and rhythm Abdomen: Soft, normal bowel sounds, nontender, nondistended, no rebound or guarding Back: Normal inspection Extremity: Normal inspection, full range of motion Neuro: Alert O x 3, no facial asymmetry, speech clear, no gross motor sensory deficit Psych: Appropriate behavior Skin: No rash ED Course Vital Signs 08/13/21 08/13/21 08/14/21 18:40 20:36 05:41 Temperature 98.6 F 97.7 F Pulse Rate 88 83 Respiratory 18 18 17 Rate Blood Pressure 152/90 137/69 [Left] O2 Sat by Pulse 98 100 96 Oximetry 08/14/21 08/14/21 12:46 20:33 Temperature 98.4 F 98.5 F Pulse Rate 78 67 Respiratory 16 16 Rate Blood Pressure 115/80 101/55 [Left] O2 Sat by Pulse 98 96 Oximetry ED Medical Decision Making - Lab Data Result diagrams: 08/13/21 20:36 08/13/21 20:36 - Medical Decision Making Attempted to obtain urine sample from patient, she urinated on herself. 1013 signed patient awaiting mental health evaluation for placement Critical care attestation.: If time is entered above; I have spent that time in minutes in the direct care of this critically ill patient, excluding procedure time. ED Disposition Clinical Impression: Acute psychosis, Suicidal ideation, Amphetamine abuse, Medical clearance for psychiatric admission Disposition: [address] [place] [address] Is pt being admited?: No Condition: Stable Referrals: [facility] [Other] - 3-5 Days
--- NOTE | 2021-08-14 11:07 | Consultation ---
History of Present Illness - Reason for Consult Consult date: 08/14/21 Reason for consult: suicidal ideation - History of Present Psychiatric Illness ED Note: 36-year-old female with a past medical history anxiety, seizures, PTSD, and bipolar disorder presents to the hospital with altered vision hallucinations. Patient states the voices tell her to kill herself. Her plan is to cut her eyes and feet off and to take a gun from the office or issue herself with it. Chantelle Ortiz is a 36 year old female with history of PTSD and Bipolar disorder who present to the ED for with suicidal ideation. In my interview with the patient, she is calm. She reports running out of her psychotropic medications about a week ago. She reports recent stressors such as homelessness and financial issues. She denies any current suicidal ideation but admits having intermittent hallucinations. PAST PSYCHIATRIC HISTORY: Diagnoses: Bipolar, PTSD Suicide attempts or Self-harm behavior: Denies Prior psychiatric hospitalizations:yes Substance Abuse history:Meth Previous psychiatric medications tried: Unable to recall Outpatient treatment: Unknown PAST MEDICAL HISTORY: None reported or document Family Psychiatric History: None reported or documented SOCIAL HISTORY Marital Status: Single Living Arrangements: Homeless Employment Status: unemployed Access to guns/weapons: Denies Education: 12th grade History of Abuse: Denies Legal History: Denies REVIEW OF SYSTEMS Constitutional: Negative for weight loss ENT: Negative for stridor Respiratory: Negative for cough or hemoptysis All other systems reviewed and are negative MENTAL STATUS EXAMINATION General Appearance and Behavior: Age appropriate, good hygiene, wearing appropriate clothes. cooperative Cooperation: cooperative Psychomotor Behavior: Psychomotor normal Mood:depressed Affect and affective range: congruent to stated mood Thought Process: Goal directed Thought Content:Reality oriented Speech: normal tone and pace Suicidal Ideation:Denies Homicidal Ideation: Denies Hallucinations: Intermittent auditory hallucinations Delusions: None elicited Impulse Control: Limited Insight and Judgment: Limited Memory: limited Attention: Distractible Orientation: alert and oriented Assessment and Plan (1) Bipolar disorder (2) Treatment Plan 1013 Restart Home medications Case management Sitter: per primary Medical: per primary Disposition: Recommend acute psychiatric inpatient treatment. Will follow. Thanks Case staffed with Dr. Campos Medications and Allergies Medications and Allergies Allergies Allergy/AdvReac Type Severity Reaction Status Date / Time carbamazepine [From Tegretol] Allergy Seizure Verified 01/15/20 10:26 morphine Allergy Rash Verified 01/15/20 10:26 lamotrigine [From Lamictal] AdvReac Seizure Verified 01/15/20 10:26 levetiracetam [From Keppra] AdvReac Seizure Verified 03/02/20 20:38 Home Medications Medication Instructions Recorded Confirmed Last Taken Type Ferrous Sulfate 1 tab PO DAILY 03/02/20 04/16/20 03/04/20 11:33 History Vit-Fe Fumar-FA [ 1 tab PO DAILY 03/02/20 04/16/20 03/04/20 11:33 History Vitamin] clonazePAM [Klonopin] 2 tab PO BID 03/02/20 04/16/20 03/04/20 11:32 History risperiDONE [RisperDAL] 1 tab PO BID 03/02/20 04/16/20 03/04/20 05:00 History tiZANidine [Zanaflex 4mg TAB] 1 tab PO DAILY 03/02/20 04/16/20 03/04/20 05:00 History Amoxicillin [Trimox CAP] 500 mg PO Q8H #21 capsule 02/24/21 Unknown Rx Cetirizine HCl [Zyrtec 10mg tab] 10 mg PO DAILY #20 tablet 02/24/21 Unknown Rx Ketorolac [Toradol] 10 mg PO Q6H PRN #20 tablet 02/24/21 Unknown Rx Neomy/Polymyx B/Hc (Otic) Soln 3 drops OTIC BID 7 Days #1 bottle 02/24/21 Unknown Rx [Cortisporin (Otic) Soln] Mental Status Exam - Vital signs Last Vital Signs Temp 97.7 F 08/13/21 20:36 Pulse 83 08/13/21 20:36 Resp 17 08/14/21 05:41 BP 137/69 08/13/21 20:36 Pulse Ox 96 08/14/21 05:41 Results Result Diagrams: 08/13/21 20:36 08/13/21 20:36 Abnormal lab results 08/13/21 08/13/21 08/13/21 Range/Units 20:36 20:36 20:36 MCH 26 L (28-32) pg RDW 17.6 H (13.2-15.2) % Woodward % (Auto) 8.3 H (0.0-7.3) % Carbon Dioxide 20 L (22-30) mmol/L Glucose 101 H (65-100) mg/dL Salicylates < 0.3 L (2.8-20.0) mg/dL Acetaminophen (10.0-30.0) ug/mL 08/13/21 Range/Units 20:36 MCH (28-32) pg RDW (13.2-15.2) % Woodward % (Auto) (0.0-7.3) % Carbon Dioxide (22-30) mmol/L Glucose (65-100) mg/dL Salicylates (2.8-20.0) mg/dL Acetaminophen 5.0 L (10.0-30.0) ug/mL All other labs normal.
[2021-08-14] MEDS ORDERED: ARIPiprazole 10 MG TAB PO SCH (12:00)
--- NOTE | 2021-08-14 13:04 | Event Note ---
Date: 08/14/21 36-year-old female who presented with psychosis and suicidal ideation. She was seen by my colleague and was medically cleared for psychiatric evaluation and placement. Vital signs reviewed and are stable. No acute events overnight. Currently awaiting inpatient psychiatric facility placement.
[2021-08-14 17:01] LABS: Bilirubin,Urine NEG (Negative); Blood,Urine NEG (Negative); Color,Urine Yellow (Yellow); Mucus,Urine FEW /HPF; Protein,Urine <15 mg/dL mg/dL (Negative)
[2021-08-14 17:07] LABS: Benzodiazepines Screen,Urine Negative; Cocaine Screen,Urine Negative; Methadone Screen,Urine Negative; Opiate Screen,Urine Negative
[2021-08-14 17:34] LABS: Amphetamine Screen,Urine Positive; Cannabinoid Screen,Urine Positive
[2021-08-14] MEDS ORDERED: TOPIRAMATE TAB 25 MG TAB PO SCH (22:00)
[2021-08-14] MEDS: risperiDONE 1 MG TAB PO SCH (23:13)
[2021-08-14] MEDS: traZODone 50 MG TAB PO SCH (23:13)
[2021-08-15] MEDS: LITHIUM CARBONATE ER 300 MG TAB PO SCH (10:27)
[2021-08-15] MEDS: risperiDONE 1 MG TAB PO SCH ×2 (10:27→22:30)
--- NOTE | 2021-08-15 11:03 | Progress Note ---
Subjective - Reason for Consult Consult date: 08/15/21 Reason for consult: mental health evaluation - Chief Complaint Chief complaint: The patient is seen this morning, she endorses suicidal ideation with a plan to cut herself. The patient continue to have intermittent auditory hallucinations. REVIEW OF SYSTEMS Constitutional: Negative for weight loss ENT: Negative for stridor Respiratory: Negative for cough or hemoptysis All other systems reviewed and are negative MENTAL STATUS EXAMINATION General Appearance and Behavior: Age appropriate, good hygiene, wearing appropriate clothes. cooperative Cooperation: cooperative Psychomotor Behavior: Psychomotor normal Mood:depressed Affect and affective range: congruent to stated mood Thought Process: circumstantial Thought Content:suicidal Speech: normal tone and pace Suicidal Ideation:Yes Homicidal Ideation: Denies Hallucinations: Intermittent auditory hallucinations Delusions: None elicited Impulse Control: Limited Insight and Judgment: Limited Memory: limited Attention: Distractible Orientation: alert and oriented Assessment and Plan (1) Bipolar disorder (2) Treatment Plan 1013 Restart Home medications Case management Sitter: per primary Medical: per primary Disposition: Recommend acute psychiatric inpatient treatment. Will follow. Thanks Case staffed with Dr. Campos Medications and Allergies Mental Status Exam - Vital signs Last Vital Signs Temp 98.3 F 08/15/21 02:51 Pulse 76 08/15/21 02:51 Resp 18 08/15/21 03:27 BP 117/55 08/15/21 02:51 Pulse Ox 97 08/15/21 08:47
[2021-08-15] MEDS ORDERED: NON-FORMULARY EACH (Clonazepam [Klonopin] 1 MG Tablet) PO PRN (12:55)
[2021-08-15] MEDS ORDERED: ACETAMINOPHEN 325 MG TAB PO PRN (12:56)
[2021-08-15] MEDS ORDERED: ONDANSETRON 4 MG ODT TAB PO PRN (12:56)
[2021-08-15] MEDS ORDERED: diphenhydrAMINE 25 MG CAP PO PRN (12:56)
--- NOTE | 2021-08-15 12:58 | Event Note ---
Date: 08/15/21 The patient was evaluated in the emergency department for symptoms described in the history of present illness. He/she was evaluated in the context of the global COVID-19 pandemic, which necessitated consideration that the patient might be at risk for infection with the virus that causes COVID-19. Institutional protocols and algorithms that pertain to the evaluation of patients at risk for COVID-19 are in a state of rapid change based on information released by regulatory bodies including the CDC and federal and state organizations. These policies and algorithms were followed during the patient's care in the emergency department. Please note that these policies, procedures and recommendations changed on a rapid basis. Laboratory studies, vital signs, nursing documentation, ER documentation, and psychiatric documentation are reviewed and appreciated. Nursing team reports no acute events this morning or concerns. Patient resting comfortably on chair, and in no acute distress. Holding orders initiated The patient was deemed medically suitable for psychiatric disposition and placement during his initial ER evaluation. The patient continues to remain medically suitable for psychiatric placement and disposition. sHe is currently pending psychiatric placement. Vital Signs 08/13/21 08/13/21 08/14/21 18:40 20:36 05:41 Temperature 98.6 F 97.7 F Pulse Rate 88 83 Respiratory 18 18 17 Rate Blood Pressure 152/90 137/69 [Left] O2 Sat by Pulse 98 100 96 Oximetry 08/14/21 08/14/21 08/15/21 12:46 20:33 02:51 Temperature 98.4 F 98.5 F 98.3 F Pulse Rate 78 67 76 Respiratory 16 16 18 Rate Blood Pressure 115/80 101/55 117/55 [Left] O2 Sat by Pulse 98 96 97 Oximetry 08/15/21 08/15/21 03:27 08:47 Temperature Pulse Rate Respiratory 18 Rate Blood Pressure [Left] O2 Sat by Pulse 97 97 Oximetry Lab Results 08/13/21 08/13/21 08/13/21 Range/Units 20:36 20:36 20:36 WBC 7.5 (4.5-11.0) K/mm3 RBC 4.23 (3.65-5.03) M/mm3 Hgb 11.0 (10.1-14.3) gm/dl Hct 35.4 (30.3-42.9) % MCV 84 (79-97) fl MCH 26 L (28-32) pg MCHC 31 (30-34) % RDW 17.6 H (13.2-15.2) % Plt Count 294 (140-440) K/mm3 Lymph % (Auto) 21.4 (13.4-35.0) % Nicholas % (Auto) 8.3 H (0.0-7.3) % Eos % (Auto) 0.1 (0.0-4.3) % Baso % (Auto) 0.4 (0.0-1.8) % Lymph # (Auto) 1.6 (1.2-5.4) K/mm3 Nicholas # (Auto) 0.6 (0.0-0.8) K/mm3 Eos # (Auto) 0.0 (0.0-0.4) K/mm3 Baso # (Auto) 0.0 (0.0-0.1) K/mm3 Seg Neutrophils % 69.8 (40.0-70.0) % Seg Neutrophils # 5.3 (1.8-7.7) K/mm3 Sodium 138 (137-145) mmol/L Potassium 4.4 (3.6-5.0) mmol/L Chloride 105.9 (98-107) mmol/L Carbon Dioxide 20 L (22-30) mmol/L Anion Gap 17 mmol/L BUN 7 (7-17) mg/dL Creatinine 0.7 (0.6-1.2) mg/dL Estimated GFR > 60 ml/min BUN/Creatinine Ratio 10 % Glucose 101 H (65-100) mg/dL Calcium 9.3 (8.4-10.2) mg/dL HCG, Qual (Negative) Urine Color (Yellow) Urine Turbidity (Clear) Urine pH (5.0-7.0) Ur Specific Davin (1.003-1.030) Urine Protein (Negative) mg/dL Urine Glucose (UA) (Negative) mg/dL Urine Ketones (Negative) mg/dL Urine Blood (Negative) Urine Nitrite (Negative) Urine Bilirubin (Negative) Urine Urobilinogen (<2.0) mg/dL Ur Leukocyte Esterase (Negative) Urine WBC (Auto) (0.0-6.0) /HPF Urine RBC (Auto) (0.0-6.0) /HPF U Epithel Cells (Auto) (0-13.0) /HPF Urine Mucus /HPF Salicylates < 0.3 L (2.8-20.0) mg/dL Urine Opiates Screen Urine Methadone Screen Acetaminophen (10.0-30.0) ug/mL Ur Barbiturates Screen Ur Phencyclidine Scrn Ur Amphetamines Screen U Benzodiazepines Scrn Urine Cocaine Screen U Marijuana (THC) Screen Drugs of Abuse Note Plasma/Serum Alcohol (0-0.07) % Coronavirus (PCR) (Negative) 08/13/21 08/13/21 08/13/21 Range/Units 20:36 20:36 20:36 WBC (4.5-11.0) K/mm3 RBC (3.65-5.03) M/mm3 Hgb (10.1-14.3) gm/dl Hct (30.3-42.9) % MCV (79-97) fl MCH (28-32) pg MCHC (30-34) % RDW (13.2-15.2) % Plt Count (140-440) K/mm3 Lymph % (Auto) (13.4-35.0) % Nicholas % (Auto) (0.0-7.3) % Eos % (Auto) (0.0-4.3) % Baso % (Auto) (0.0-1.8) % Lymph # (Auto) (1.2-5.4) K/mm3 Nicholas # (Auto) (0.0-0.8) K/mm3 Eos # (Auto) (0.0-0.4) K/mm3 Baso # (Auto) (0.0-0.1) K/mm3 Seg Neutrophils % (40.0-70.0) % Seg Neutrophils # (1.8-7.7) K/mm3 Sodium (137-145) mmol/L Potassium (3.6-5.0) mmol/L Chloride (98-107) mmol/L Carbon Dioxide (22-30) mmol/L Anion Gap mmol/L BUN (7-17) mg/dL Creatinine (0.6-1.2) mg/dL Estimated GFR ml/min BUN/Creatinine Ratio % Glucose (65-100) mg/dL Calcium (8.4-10.2) mg/dL HCG, Qual Negative (Negative) Urine Color (Yellow) Urine Turbidity (Clear) Urine pH (5.0-7.0) Ur Specific Davin (1.003-1.030) Urine Protein (Negative) mg/dL Urine Glucose (UA) (Negative) mg/dL Urine Ketones (Negative) mg/dL Urine Blood (Negative) Urine Nitrite (Negative) Urine Bilirubin (Negative) Urine Urobilinogen (<2.0) mg/dL Ur Leukocyte Esterase (Negative) Urine WBC (Auto) (0.0-6.0) /HPF Urine RBC (Auto) (0.0-6.0) /HPF U Epithel Cells (Auto) (0-13.0) /HPF Urine Mucus /HPF Salicylates (2.8-20.0) mg/dL Urine Opiates Screen Urine Methadone Screen Acetaminophen 5.0 L (10.0-30.0) ug/mL Ur Barbiturates Screen Ur Phencyclidine Scrn Ur Amphetamines Screen U Benzodiazepines Scrn Urine Cocaine Screen U Marijuana (THC) Screen Drugs of Abuse Note Plasma/Serum Alcohol < 0.01 (0-0.07) % Coronavirus (PCR) (Negative) 08/14/21 08/14/21 08/14/21 Range/Units 16:09 16:09 Unknown WBC (4.5-11.0) K/mm3 RBC (3.65-5.03) M/mm3 Hgb (10.1-14.3) gm/dl Hct (30.3-42.9) % MCV (79-97) fl MCH (28-32) pg MCHC (30-34) % RDW (13.2-15.2) % Plt Count (140-440) K/mm3 Lymph % (Auto) (13.4-35.0) % Nicholas % (Auto) (0.0-7.3) % Eos % (Auto) (0.0-4.3) % Baso % (Auto) (0.0-1.8) % Lymph # (Auto) (1.2-5.4) K/mm3 Nicholas # (Auto) (0.0-0.8) K/mm3 Eos # (Auto) (0.0-0.4) K/mm3 Baso # (Auto) (0.0-0.1) K/mm3 Seg Neutrophils % (40.0-70.0) % Seg Neutrophils # (1.8-7.7) K/mm3 Sodium (137-145) mmol/L Potassium (3.6-5.0) mmol/L Chloride (98-107) mmol/L Carbon Dioxide (22-30) mmol/L Anion Gap mmol/L BUN (7-17) mg/dL Creatinine (0.6-1.2) mg/dL Estimated GFR ml/min BUN/Creatinine Ratio % Glucose (65-100) mg/dL Calcium (8.4-10.2) mg/dL HCG, Qual (Negative) Urine Color Yellow (Yellow) Urine Turbidity Hazy (Clear) Urine pH 6.0 (5.0-7.0) Ur Specific Davin 1.012 (1.003-1.030) Urine Protein <15 mg/dl (Negative) mg/dL Urine Glucose (UA) Neg (Negative) mg/dL Urine Ketones Neg (Negative) mg/dL Urine Blood Neg (Negative) Urine Nitrite Neg (Negative) Urine Bilirubin Neg (Negative) Urine Urobilinogen 4.0 (<2.0) mg/dL Ur Leukocyte Esterase Tr (Negative) Urine WBC (Auto) 3.0 (0.0-6.0) /HPF Urine RBC (Auto) 2.0 (0.0-6.0) /HPF U Epithel Cells (Auto) 6.0 (0-13.0) /HPF Urine Mucus Few /HPF Salicylates (2.8-20.0) mg/dL Urine Opiates Screen Negative Urine Methadone Screen Negative Acetaminophen (10.0-30.0) ug/mL Ur Barbiturates Screen Negative Ur Phencyclidine Scrn Negative Ur Amphetamines Screen Positive U Benzodiazepines Scrn Negative Urine Cocaine Screen Negative U Marijuana (THC) Screen Positive Drugs of Abuse Note Disclamer Plasma/Serum Alcohol (0-0.07) % Coronavirus (PCR) Negative (Negative)
[2021-08-15] MEDS: LORazepam 2 MG/ML VIAL IM PRN (16:47)
[2021-08-15] MEDS: traZODone 50 MG TAB PO SCH (22:30)
[2021-08-16] MEDS: LITHIUM CARBONATE ER 300 MG TAB PO SCH (11:24)
[2021-08-16] MEDS: risperiDONE 1 MG TAB PO SCH ×2 (11:24→22:02)
--- NOTE | 2021-08-16 11:29 | Progress Note ---
Subjective - Reason for Consult Consult date: 08/16/21 Reason for consult: mental health evaluation - Chief Complaint Chief complaint: The patient is seen this morning, she is shouting and being loud after her encounter with the case management team. The patient is throwing her breakfast allover her room. She is coursing out with inappropriate words. REVIEW OF SYSTEMS Constitutional: Negative for weight loss ENT: Negative for stridor Respiratory: Negative for cough or hemoptysis All other systems reviewed and are negative MENTAL STATUS EXAMINATION: unable to assess Assessment and Plan (1) Bipolar disorder (2) Treatment Plan 1013 Restart Home medications Case management Sitter: per primary Medical: per primary Disposition: Recommend acute psychiatric inpatient treatment. Will follow. Thanks Case staffed with Dr. Campos Medications and Allergies Mental Status Exam - Vital signs Last Vital Signs Temp 98.4 F 08/16/21 10:26 Pulse 69 08/16/21 10:26 Resp 18 08/16/21 10:26 BP 125/71 08/16/21 10:26 Pulse Ox 97 08/16/21 10:26
--- NOTE | 2021-08-16 12:02 | Event Note ---
Date: 08/16/21 Patient reportedly had an acute agitated event this morning when she was throwing her breakfast around the room. She was seen by psychiatry her home meds were continued. 1013 is continue. Awaiting inpatient placement.
[2021-08-16] MEDS: LORazepam 2 MG/ML VIAL IM PRN (16:21)
[2021-08-16 19:53] VITALS: BP 128/69
[2021-08-16] MEDS: traZODone 50 MG TAB PO SCH (22:03)
[2021-08-16] MEDS: LITHIUM CARBONATE 300 MG CAP PO SCH (22:03)
--- NOTE | 2021-08-17 10:56 | Progress Note ---
Subjective - Reason for Consult Consult date: 08/17/21 Reason for consult: mental health evaluation - Chief Complaint Chief complaint: The patient is seen this morning, she continues to endorse suicidal ideation with a plan to cut herself. She also admits hearing voices but states she is not sure what they are saying. REVIEW OF SYSTEMS Constitutional: Negative for weight loss ENT: Negative for stridor Respiratory: Negative for cough or hemoptysis All other systems reviewed and are negative MENTAL STATUS EXAMINATION: unable to assess Assessment and Plan (1) Bipolar disorder (2) Treatment Plan 1013 Restart Home medications Case management Sitter: per primary Medical: per primary Disposition: Recommend acute psychiatric inpatient treatment. Will follow. Thanks Case staffed with Dr. Campos Medications and Allergies Mental Status Exam - Vital signs Last Vital Signs Temp 98.6 F 08/16/21 19:52 Pulse 69 08/16/21 19:52 Resp 18 08/17/21 05:18 BP 128/69 08/16/21 19:52 Pulse Ox 98 08/17/21 05:18
--- NOTE | 2021-08-17 11:40 | Event Note ---
Date: 08/17/21 Patient is continue to endorse suicidal ideations. Patient to remain at 1013. Patient resting comfortably at this time with no further complaints. Patient is medically cleared at this time. Laboratory studies are significant for amphetamine marijuana intoxication. Covid test is negative. Psychiatry Progress Note Patient Name: GABRIELLA WEEKS Date of : 87 Patient Status: Emergency Emergency Provider: JIGAR LANGFORD Date: 08/17/21 10:54 Initialization Date: 08/17/21 10:54 Subjective - Reason for Consult Consult date: 08/17/21 Reason for consult: mental health evaluation - Chief Complaint Chief complaint: The patient is seen this morning, she continues to endorse suicidal ideation with a plan to cut herself. She also admits hearing voices but states she is not sure what they are saying. REVIEW OF SYSTEMS Constitutional: Negative for weight loss ENT: Negative for stridor Respiratory: Negative for cough or hemoptysis All other systems reviewed and are negative MENTAL STATUS EXAMINATION: unable to assess Assessment and Plan (1) Bipolar disorder (2) Treatment Plan 1013 Restart Home medications Case management Sitter: per primary Medical: per primary Disposition: Recommend acute psychiatric inpatient treatment. Will follow. Thanks Case staffed with Dr. Campos
[2021-08-17] MEDS ORDERED: ZIPRASIDONE MESYLATE 20 MG VIAL IM ONE (11:56)
[2021-08-17] MEDS: LITHIUM CARBONATE 300 MG CAP PO SCH (13:52)
[2021-08-17] MEDS: risperiDONE 1 MG TAB PO SCH (13:52)
[2021-08-17] MEDS ORDERED: clonazePAM 0.5 MG TAB PO SCH (22:00)
[2021-08-17] MEDS ORDERED: TOPIRAMATE TAB 25 MG TAB PO SCH (22:00)
== END 2021-08-17 17:16 ==
LOC: ED 18:31
DX: F23 Brief psychotic disorder (principal); R45.851 Suicidal ideations; F15.10 Other stimulant abuse, uncomplicated; Z13.30 Encounter for screening examination for mental health and behavioral disorders, unspecified; Z86.73 Personal history of transient ischemic attack (TIA), and cerebral infarction without residual deficits; F31.9 Bipolar disorder, unspecified; Z90.721 Acquired absence of ovaries, unilateral; Z98.890 Other specified postprocedural states; F17.200 Nicotine dependence, unspecified, uncomplicated; Z88.8 Allergy status to other drugs, medicaments and biological substances; Z88.5 Allergy status to narcotic agent; Z20.822 Contact with and (suspected) exposure to COVID-19
CPT/HCPCS: 36415; 80048; 80307; 81001; 84703; 85025; 96372; 99285; J2060; J3486; J3490; U0003; 80320; G0480

== ENCOUNTER 2021-12-14 18:46 | Emergency (ER) | payer MEDICARE ==
--- NOTE | 2021-12-14 20:00 | Emergency Department Report ---
ED Psych HPI - General Chief Complaint: Psych Stated Complaint: SUICIDEL THOUGHTS Time Seen by Provider: 12/14/21 19:55 Source: patient, EMS Mode of arrival: Ambulatory - History of Present Illness Initial Comments: Patient is a 36-year-old female who presents with psychotic episode. Patient has been off her meds for 3 days and is been using meth. Patient has suicidal ideation she does not have a plan currently. She states she is hearing voices history is limited due to patient's condition. - Related Data Home Medications Medication Instructions Recorded Confirmed Last Taken Ferrous Sulfate 1 tab PO DAILY 03/02/20 04/16/20 03/04/20 11:33 Vit-Fe Fumar-FA [ 1 tab PO DAILY 03/02/20 04/16/20 03/04/20 11:33 Vitamin] clonazePAM [Klonopin] 2 tab PO BID 03/02/20 04/16/20 03/04/20 11:32 risperiDONE [RisperDAL] 1 tab PO BID 03/02/20 04/16/20 03/04/20 05:00 tiZANidine [Zanaflex 4mg TAB] 1 tab PO DAILY 03/02/20 04/16/20 03/04/20 05:00 Previous Rx's Medication Instructions Recorded Last Taken Type Amoxicillin [Trimox CAP] 500 mg PO Q8H #21 capsule 02/24/21 Unknown Rx Cetirizine HCl [Zyrtec 10mg tab] 10 mg PO DAILY #20 tablet 02/24/21 Unknown Rx Ketorolac [Toradol] 10 mg PO Q6H PRN #20 tablet 02/24/21 Unknown Rx Neomy/Polymyx B/Hc (Otic) Soln 3 drops OTIC BID 7 Days #1 bottle 02/24/21 Unknown Rx [Cortisporin (Otic) Soln] Allergies Allergy/AdvReac Type Severity Reaction Status Date / Time carbamazepine [From Tegretol] Allergy Seizure Verified 01/15/20 10:26 morphine Allergy Rash Verified 01/15/20 10:26 lamotrigine [From Lamictal] AdvReac Seizure Verified 01/15/20 10:26 levetiracetam [From Keppra] AdvReac Seizure Verified 03/02/20 20:38 ED Review of Systems ROS: Stated complaint: SUICIDEL THOUGHTS Other details as noted in HPI Constitutional: denies: chills, fever Eyes: denies: eye pain, eye discharge, vision change ENT: denies: ear pain, throat pain Respiratory: denies: cough, shortness of breath, wheezing Cardiovascular: denies: chest pain, palpitations Endocrine: no symptoms reported Gastrointestinal: denies: abdominal pain, nausea, diarrhea Genitourinary: denies: urgency, dysuria, discharge Musculoskeletal: denies: back pain, joint swelling, arthralgia Skin: denies: rash, lesions Neurological: denies: headache, weakness, paresthesias Psychiatric: suicidal thoughts. denies: anxiety, depression Hematological/Lymphatic: denies: easy bleeding, easy bruising ED Past Medical Hx - Past Medical History Previous Medical History?: Yes Hx Hypertension: No Hx CVA: Yes (no deficits TIA) Hx Heart Attack/AMI: Yes Hx Congestive Heart Failure: No Hx Diabetes: No Hx Deep Vein Thrombosis: No Hx Pulmonary Embolism: No Hx GERD: No Hx Liver Disease: No Hx Renal Disease: No Hx Sickle Cell Disease: No Hx Arthritis: No Hx Headaches / Migraines: No Hx Seizures: Yes Hx Kidney Stones: No Hx Psychiatric Treatment: Yes (anxiety, bipolar, PTSD) Hx Asthma: No Hx COPD: No Hx Tuberculosis: No Hx Dementia: No Hx HIV: No Additional medical history: Hx of seizures - Surgical History Past Surgical History?: Yes Additional Surgical History: Right oophorectomy. tubes to ears as child - Social History Smoking Status: Unknown if ever smoked Substance Use Type: None - Medications Home Medications: Home Medications Medication Instructions Recorded Confirmed Last Taken Type Ferrous Sulfate 1 tab PO DAILY 03/02/20 04/16/20 03/04/20 11:33 History Vit-Fe Fumar-FA [ 1 tab PO DAILY 03/02/20 04/16/20 03/04/20 11:33 History Vitamin] clonazePAM [Klonopin] 2 tab PO BID 03/02/20 04/16/20 03/04/20 11:32 History risperiDONE [RisperDAL] 1 tab PO BID 03/02/20 04/16/20 03/04/20 05:00 History tiZANidine [Zanaflex 4mg TAB] 1 tab PO DAILY 03/02/20 04/16/20 03/04/20 05:00 History Amoxicillin [Trimox CAP] 500 mg PO Q8H #21 capsule 02/24/21 Unknown Rx Cetirizine HCl [Zyrtec 10mg tab] 10 mg PO DAILY #20 tablet 02/24/21 Unknown Rx Ketorolac [Toradol] 10 mg PO Q6H PRN #20 tablet 02/24/21 Unknown Rx Neomy/Polymyx B/Hc (Otic) Soln 3 drops OTIC BID 7 Days #1 bottle 02/24/21 Unknown Rx [Cortisporin (Otic) Soln] ED Physical Exam - General Limitations: No Limitations General appearance: alert - Head Head exam: Present: atraumatic, normocephalic - Eye Eye exam: Present: normal appearance - ENT ENT exam: Present: mucous membranes moist - Neck Neck exam: Present: normal inspection - Respiratory Respiratory exam: Present: normal lung sounds bilaterally. Absent: respiratory distress - Cardiovascular Cardiovascular Exam: Present: regular rate, normal rhythm. Absent: systolic murmur, diastolic murmur, rubs, gallop - GI/Abdominal GI/Abdominal exam: Present: soft, normal bowel sounds - Extremities Exam Extremities exam: Present: normal inspection - Back Exam Back exam: Present: normal inspection - Neurological Exam Neurological exam: Present: alert - Psychiatric Psychiatric exam: Present: agitated, flat affect, suicidal ideation - Skin Skin exam: Present: warm, dry, intact, normal color. Absent: rash ED Course Vital Signs 12/14/21 12/14/21 19:04 21:54 Temperature 98 F 97.9 F Pulse Rate 82 108 H Respiratory 18 18 Rate Blood Pressure 180/90 136/96 [Right] O2 Sat by Pulse 98 97 Oximetry ED Medical Decision Making - Medical Decision Making Chief medical diagnosis: Suicidal ideation Differential medical diagnosis: Schizoaffective disorder, meth induced psychosis I will sign 1013 will get blood work IM Haldol and IM i'll Ativan and will consult mental health worker. Critical care attestation.: If time is entered above; I have spent that time in minutes in the direct care of this critically ill patient, excluding procedure time. ED Disposition Clinical Impression: Acute psychosis Disposition: [address] [place] [address] Is pt being admited?: No Does the pt Need Aspirin: No Condition: Stable Referrals: PRIMARY CARE, [Primary Care Provider] - 3-5 Days
[2021-12-14] MEDS ORDERED: HALOPERIDOL LACTATE 5 MG/1 ML INJ IM ONE (20:57)
[2021-12-14] MEDS ORDERED: diphenhydrAMINE 50 MG/ML VIAL IM ONE (20:58)
[2021-12-14] MEDS ORDERED: LORazepam 2 MG/ML VIAL IM ONE (20:59)
[2021-12-15 06:53] LABS: Basophils # (Auto) 0.1 K/mm3 (0.0-0.1); Basophils % (Auto) 0.9 % (0.0-1.8); Eosinophils % (Auto) 0.1 % (0.0-4.3); Hematocrit 32.7 % (30.3-42.9); Hemoglobin 10.8 gm/dl (10.1-14.3); Lymphocytes # (Auto) 2.2 K/mm3 (1.2-5.4); Mean Corpuscular HGB Conc 33 % (30-34); Mean Corpuscular Volume 77 fl (79-97); Monocytes # (Auto) 0.6 K/mm3 (0.0-0.8); Monocytes % (Auto) 8.2 % (0.0-7.3); Platelet Count 306 K/mm3 (140-440); Red Blood Count 4.23 M/mm3 (3.65-5.03); Red Cell Distribution Width 18.1 % (13.2-15.2)
[2021-12-15 07:05] LABS: BUN/Creatinine Ratio 16; Blood Urea Nitrogen 14 mg/dL (7-17); Calcium 9.1 mg/dL (8.4-10.2); Hemolysis Index 5
--- NOTE | 2021-12-15 10:36 | Consultation ---
History of Present Illness - Reason for Consult Consult date: 12/15/21 Reason for consult: SI, polysubstance use - History of Present Psychiatric Illness HPI: Patient is a 36-year-old female who presents with psychotic episode. Patient has been off her meds for 3 days and is been using meth. Patient has suicidal ideation she does not have a plan currently. She states she is hearing voices history is limited due to patient's condition. The patient was seen today. The patient appears to responding to internal stimuli. She is staring and appears preoccupied. I have to call her names several times to engage her. Her speech is slightly garbled. She says she's been off her meds for about three days. The patient say she takes Mystic, prazosyn, and seroquel. She also says she takes Abilify Maintena and states she had it earlier this month. The patient endorses suicidal thoughts without a plan. She admits to using cocaine and methamphetamines PAST PSYCHIATRIC HISTORY: Diagnoses: Bipolar Suicide attempts or Self-harm behavior: Denies Prior psychiatric hospitalizations: yes Substance Abuse history: Methamphetamines, and cocaine Previous psychiatric medications tried: Mystic, seroquel, prazosyn Outpatient treatment: Yes PAST MEDICAL HISTORY: None reported or document Family Psychiatric History: None reported or documented SOCIAL HISTORY Marital Status: Single Living Arrangements: Hotel Employment Status: Disabled Access to guns/weapons: Denies Education: History of Abuse: Denies Legal History: Denies REVIEW OF SYSTEMS Constitutional: Negative for weight loss ENT: Negative for stridor Respiratory: Negative for cough or hemoptysis All other systems reviewed and are negative MENTAL STATUS EXAMINATION General Appearance and Behavior: Age appropriate, good hygiene, wearing appro priate clothes. cooperative Cooperation: cooperative Psychomotor Behavior: Psychomotor normal Mood: depressed Affect and affective range: congruent to stated mood Thought Process: responding to internal stimuli Thought Content: hallucinations, SI Speech: garbled Suicidal Ideation: Yes Homicidal Ideation: Denies Hallucinations: Auditory Delusions: None elicited Impulse Control: Limited Insight and Judgment: Limited Memory: limited Attention: Distractible Orientation: alert and oriented Assessment and Plan (1) Bipolar Disorder (2) Polysubstance Dependence Treatment Plan 1013 Seroquel 100mg po BID Mystic 450mg po daily Prazosyn 1mg po qhs Sitter: per primary Medical: per primary Disposition: Recommend acute psychiatric inpatient treatment. Will follow. Thanks Case staffed with Dr. Campos Medications and Allergies Allergies Allergy/AdvReac Type Severity Reaction Status Date / Time carbamazepine [From Tegretol] Allergy Seizure Verified 01/15/20 10:26 morphine Allergy Rash Verified 01/15/20 10:26 lamotrigine [From Lamictal] AdvReac Seizure Verified 01/15/20 10:26 levetiracetam [From Keppra] AdvReac Seizure Verified 03/02/20 20:38 Home Medications Medication Instructions Recorded Confirmed Last Taken Type Ferrous Sulfate 1 tab PO DAILY 03/02/20 04/16/20 03/04/20 11:33 History Vit-Fe Fumar-FA [ 1 tab PO DAILY 03/02/20 04/16/20 03/04/20 11:33 History Vitamin] clonazePAM [Klonopin] 2 tab PO BID 03/02/20 04/16/20 03/04/20 11:32 History risperiDONE [RisperDAL] 1 tab PO BID 03/02/20 04/16/20 03/04/20 05:00 History tiZANidine [Zanaflex 4mg TAB] 1 tab PO DAILY 03/02/20 04/16/20 03/04/20 05:00 History Amoxicillin [Trimox CAP] 500 mg PO Q8H #21 capsule 02/24/21 Unknown Rx Cetirizine HCl [Zyrtec 10mg tab] 10 mg PO DAILY #20 tablet 02/24/21 Unknown Rx Ketorolac [Toradol] 10 mg PO Q6H PRN #20 tablet 02/24/21 Unknown Rx Neomy/Polymyx B/Hc (Otic) Soln 3 drops OTIC BID 7 Days #1 bottle 02/24/21 Unknown Rx [Cortisporin (Otic) Soln] Mental Status Exam - Vital signs Last Vital Signs Temp 98.5 F 12/15/21 03:22 Pulse 99 H 12/15/21 03:22 Resp 18 12/15/21 03:22 BP 117/69 12/15/21 03:22 Pulse Ox 98 12/15/21 03:22 Results Result Diagrams: 12/15/21 Unknown 12/15/21 Unknown Abnormal lab results 12/15/21 12/15/21 12/15/21 Range/Units Unknown Unknown Unknown MCV 77 L (79-97) fl MCH 25 L (28-32) pg RDW 18.1 H (13.2-15.2) % Hanson % (Auto) 8.2 H (0.0-7.3) % Carbon Dioxide 19 L (22-30) mmol/L Salicylates < 0.3 L (2.8-20.0) mg/dL Acetaminophen (10.0-30.0) ug/mL 12/15/21 Range/Units Unknown MCV (79-97) fl MCH (28-32) pg RDW (13.2-15.2) % Hanson % (Auto) (0.0-7.3) % Carbon Dioxide (22-30) mmol/L Salicylates (2.8-20.0) mg/dL Acetaminophen 5.0 L (10.0-30.0) ug/mL All other labs normal.
[2021-12-15] MEDS ORDERED: LITHIUM CARBONATE 150 MG CAP PO SCH (11:00)
[2021-12-15] MEDS: QUEtiapine 100 MG TAB PO SCH (13:36)
[2021-12-15 13:38] LABS: HCG Qualitative,Urine Negative (Negative)
[2021-12-15 13:42] LABS: Bacteria,Urine 4+ /HPF (Negative); Bilirubin,Urine NEG (Negative); Blood,Urine NEG (Negative); Color,Urine Yellow (Yellow); Mucus,Urine FEW /HPF; Protein,Urine <15 mg/dL mg/dL (Negative); Urobilinogen,Urine < 2.0 mg/dL (<2.0)
[2021-12-15 13:46] LABS: Benzodiazepines Screen,Urine Negative; Methadone Screen,Urine Negative; Opiate Screen,Urine Negative
[2021-12-15 14:37] LABS: Amphetamine Screen,Urine Positive; Cannabinoid Screen,Urine Positive; Cocaine Screen,Urine Positive
--- NOTE | 2021-12-15 18:39 | Emergency Department Report ---
Blank Doc - Documentation Documentation: Ms. Baltazar is a 36-year-old female admitted to the ER with acute psychosis and has been seen by psychiatrist and team to be 1013. The plan is to continue patient home medication. No new symptoms reported today.
[2021-12-15] MEDS ORDERED: PRAZOSIN 1 MG CAP PO SCH (22:00)
[2021-12-16] MEDS: QUEtiapine 100 MG TAB PO SCH (01:15)
[2021-12-16 02:12] VITALS: BP 136/78
== END 2021-12-16 02:00 ==
LOC: EEVIPCON 18:46 → ED 18:46
DX: F23 Brief psychotic disorder (principal); F31.9 Bipolar disorder, unspecified; Z20.822 Contact with and (suspected) exposure to COVID-19; Z88.8 Allergy status to other drugs, medicaments and biological substances; Z79.899 Other long term (current) drug therapy
CPT/HCPCS: 36415; 80048; 80307; 81001; 81025; 85025; 96372; 99285; J1200; J1630; J2060; U0003; 80320; 99283; G0480

== ENCOUNTER 2021-12-25 17:44 | Emergency (ER) | payer MEDICARE ==
[2021-12-25] MEDS ORDERED: DEXAMETHASONE 4 MG TAB PO ONE (20:14)
[2021-12-25] MEDS ORDERED: KETOROLAC 10 MG TAB PO ONE (20:14)
[2021-12-25] MEDS ORDERED: BENZONATATE 100 MG CAP PO ONE (20:15)
[2021-12-25] MEDS ORDERED: ACETAMINOPHEN W/CODEINE 300-30 MG TAB PO ONE (20:15)
--- NOTE | 2021-12-25 20:22 | Emergency Department Report ---
ED ENT HPI - General Chief complaint: Upper Respiratory Infection Stated complaint: FEVER/COUGH Time Seen by Provider: 12/25/21 19:49 Source: patient Mode of arrival: Ambulatory Limitations: No Limitations - History of Present Illness Initial comments: 36-year-old white female presents to the emergency department for evaluation of 2-week history of intermittent cough and few day history of left ear pain. She states that she started to have drainage from left ear about a week ago and she still having draining intermittently but now ear is painful to touch. She denies fever. She also complains of 2-week history of cough but denies shortness of breath. She states that cough is dry and it feels like she is just congested and unable to get the phlegm out. She states that she has taken [id number] Mucinex without improvement. MD complaint: ear pain -: Gradual, week(s) (1) Location: L ear Severity: moderate Quality: aching Consistency: constant Associated Symptoms: cough, discharge from ear, rhinorrhea. denies: fever, gum swelling, toothache, pain with swallowing, sore throat, tinnitus, hearing loss - Related Data Home Medications Medication Instructions Recorded Confirmed Last Taken Ferrous Sulfate 1 tab PO DAILY 03/02/20 12/25/21 03/04/20 11:33 Vit-Fe Fumar-FA [ 1 tab PO DAILY 03/02/20 12/25/21 03/04/20 11:33 Vitamin] clonazePAM [Klonopin] 2 tab PO BID 03/02/20 12/25/21 03/04/20 11:32 risperiDONE [RisperDAL] 1 tab PO BID 03/02/20 12/25/21 03/04/20 05:00 tiZANidine [Zanaflex 4mg TAB] 1 tab PO DAILY 03/02/20 12/25/21 03/04/20 05:00 Previous Rx's Medication Instructions Recorded Last Taken Type Amoxicillin [Trimox CAP] 500 mg PO Q8H #21 capsule 02/24/21 Unknown Rx Cetirizine HCl [Zyrtec 10mg tab] 10 mg PO DAILY #20 tablet 02/24/21 Unknown Rx Ketorolac [Toradol] 10 mg PO Q6H PRN #20 tablet 02/24/21 Unknown Rx Neomy/Polymyx B/Hc (Otic) Soln 3 drops OTIC BID 7 Days #1 bottle 02/24/21 Unknown Rx [Cortisporin (Otic) Soln] Benzonatate [Tessalon Perles] 100 mg PO Q8HR #21 cap 12/25/21 Unknown Rx Brompheniramine/Pseudoephed/Dm 10 ml PO TID PRN #120 ml 12/25/21 Unknown Rx [Bromfed Dm Cough Syrup] Neomy/Polymyx B/Hc (Otic) Soln 2 drops OTIC TID #1 bottle 12/25/21 Unknown Rx [Cortisporin (Otic) Soln] methylPREDNISolone [Medrol 4MG 4 mg PO DAILY #1 pack 12/25/21 Unknown Rx DOSEPAK (21 tabs)] Allergies Allergy/AdvReac Type Severity Reaction Status Date / Time carbamazepine [From Tegretol] Allergy Seizure Verified 12/25/21 20:05 morphine Allergy Rash Verified 12/25/21 20:05 lamotrigine [From Lamictal] AdvReac Seizure Verified 12/25/21 20:05 levetiracetam [From Keppra] AdvReac Seizure Verified 12/25/21 20:05 ED Dental HPI - General Chief complaint: Upper Respiratory Infection Stated complaint: FEVER/COUGH Time Seen by Provider: 12/25/21 19:49 Source: patient Mode of arrival: Ambulatory Limitations: No Limitations - Related Data Home Medications Medication Instructions Recorded Confirmed Last Taken Ferrous Sulfate 1 tab PO DAILY 03/02/20 12/25/21 03/04/20 11:33 Vit-Fe Fumar-FA [ 1 tab PO DAILY 03/02/20 12/25/21 03/04/20 11:33 Vitamin] clonazePAM [Klonopin] 2 tab PO BID 03/02/20 12/25/21 03/04/20 11:32 risperiDONE [RisperDAL] 1 tab PO BID 03/02/20 12/25/21 03/04/20 05:00 tiZANidine [Zanaflex 4mg TAB] 1 tab PO DAILY 03/02/20 12/25/21 03/04/20 05:00 Previous Rx's Medication Instructions Recorded Last Taken Type Amoxicillin [Trimox CAP] 500 mg PO Q8H #21 capsule 02/24/21 Unknown Rx Cetirizine HCl [Zyrtec 10mg tab] 10 mg PO DAILY #20 tablet 02/24/21 Unknown Rx Ketorolac [Toradol] 10 mg PO Q6H PRN #20 tablet 02/24/21 Unknown Rx Neomy/Polymyx B/Hc (Otic) Soln 3 drops OTIC BID 7 Days #1 bottle 02/24/21 Unknown Rx [Cortisporin (Otic) Soln] Benzonatate [Tessalon Perles] 100 mg PO Q8HR #21 cap 12/25/21 Unknown Rx Brompheniramine/Pseudoephed/Dm 10 ml PO TID PRN #120 ml 12/25/21 Unknown Rx [Bromfed Dm Cough Syrup] Neomy/Polymyx B/Hc (Otic) Soln 2 drops OTIC TID #1 bottle 12/25/21 Unknown Rx [Cortisporin (Otic) Soln] methylPREDNISolone [Medrol 4MG 4 mg PO DAILY #1 pack 12/25/21 Unknown Rx DOSEPAK (21 tabs)] Allergies Allergy/AdvReac Type Severity Reaction Status Date / Time carbamazepine [From Tegretol] Allergy Seizure Verified 12/25/21 20:05 morphine Allergy Rash Verified 12/25/21 20:05 lamotrigine [From Lamictal] AdvReac Seizure Verified 12/25/21 20:05 levetiracetam [From Keppra] AdvReac Seizure Verified 12/25/21 20:05 ED Review of Systems ROS: Stated complaint: FEVER/COUGH Other details as noted in HPI Comment: All other systems reviewed and negative Constitutional: denies: chills, fever Eyes: denies: eye pain, eye discharge ENT: ear pain, congestion. denies: throat pain, dental pain Respiratory: cough. denies: shortness of breath, SOB with exertion, SOB at rest Cardiovascular: denies: chest pain, palpitations, dyspnea on exertion Gastrointestinal: denies: abdominal pain, nausea, vomiting Genitourinary: denies: urgency, dysuria, frequency, hematuria, discharge Musculoskeletal: denies: back pain Neurological: headache. denies: weakness, numbness, paresthesias, confusion, abnormal gait ED Past Medical Hx - Past Medical History Previous Medical History?: Yes Hx Hypertension: No Hx CVA: Yes (no deficits TIA) Hx Heart Attack/AMI: Yes Hx Congestive Heart Failure: No Hx Diabetes: No Hx Deep Vein Thrombosis: No Hx Pulmonary Embolism: No Hx GERD: No Hx Liver Disease: No Hx Renal Disease: No Hx Sickle Cell Disease: No Hx Arthritis: No Hx Headaches / Migraines: No Hx Seizures: Yes Hx Kidney Stones: No Hx Psychiatric Treatment: Yes (anxiety, bipolar, PTSD) Hx Asthma: No Hx COPD: No Hx Tuberculosis: No Hx Dementia: No Hx HIV: No Additional medical history: Hx of seizures - Surgical History Past Surgical History?: Yes Additional Surgical History: Right oophorectomy. tubes to ears as child - Social History Smoking Status: Unknown if ever smoked Substance Use Type: None - Medications Home Medications: Home Medications Medication Instructions Recorded Confirmed Last Taken Type Ferrous Sulfate 1 tab PO DAILY 03/02/20 12/25/21 03/04/20 11:33 History Vit-Fe Fumar-FA [ 1 tab PO DAILY 03/02/20 12/25/21 03/04/20 11:33 History Vitamin] clonazePAM [Klonopin] 2 tab PO BID 03/02/20 12/25/21 03/04/20 11:32 History risperiDONE [RisperDAL] 1 tab PO BID 03/02/20 12/25/21 03/04/20 05:00 History tiZANidine [Zanaflex 4mg TAB] 1 tab PO DAILY 03/02/20 12/25/21 03/04/20 05:00 History Amoxicillin [Trimox CAP] 500 mg PO Q8H #21 capsule 02/24/21 12/25/21 Unknown Rx Cetirizine HCl [Zyrtec 10mg tab] 10 mg PO DAILY #20 tablet 02/24/21 12/25/21 Unknown Rx Ketorolac [Toradol] 10 mg PO Q6H PRN #20 tablet 02/24/21 12/25/21 Unknown Rx Neomy/Polymyx B/Hc (Otic) Soln 3 drops OTIC BID 7 Days #1 bottle 02/24/21 12/25/21 Unknown Rx [Cortisporin (Otic) Soln] Benzonatate [Tessalon Perles] 100 mg PO Q8HR #21 cap 12/25/21 Unknown Rx Brompheniramine/Pseudoephed/Dm 10 ml PO TID PRN #120 ml 12/25/21 Unknown Rx [Bromfed Dm Cough Syrup] Neomy/Polymyx B/Hc (Otic) Soln 2 drops OTIC TID #1 bottle 12/25/21 Unknown Rx [Cortisporin (Otic) Soln] methylPREDNISolone [Medrol 4MG 4 mg PO DAILY #1 pack 12/25/21 Unknown Rx DOSEPAK (21 tabs)] ED Physical Exam - General Limitations: No Limitations General appearance: alert, in no apparent distress - Head Head exam: Present: atraumatic, normocephalic - Eye Eye exam: Present: normal appearance. Absent: conjunctival injection - ENT ENT exam: Absent: normal exam (Bilateral nasal mucosal edema), normal orophraynx (Erythema to posterior oropharynx) - Expanded ENT Exam Expanded TM/Canal exam: Canal Discharge: Left TM, Canal Tenderness: Left TM Throat exam: Negative: tonsillar erythema, tonsillomegaly, tonsillar exudate, R peritonsillar mass, L peritonsillar mass - Neck Neck exam: Present: normal inspection, full ROM. Absent: tenderness, lymphadenopathy - Respiratory Respiratory exam: Present: normal lung sounds bilaterally, chest wall tenderness. Absent: respiratory distress, wheezes, rales, rhonchi, stridor - Cardiovascular Cardiovascular Exam: Present: regular rate, normal heart sounds - GI/Abdominal GI/Abdominal exam: Present: soft. Absent: distended, tenderness, guarding, rebound, rigid, normal bowel sounds - Extremities Exam Extremities exam: Present: normal inspection, full ROM, normal capillary refill. Absent: tenderness, pedal edema, joint swelling, calf tenderness - Back Exam Back exam: Present: normal inspection. Absent: CVA tenderness (R), CVA tenderness (L) - Neurological Exam Neurological exam: Present: alert, oriented X3, normal gait, reflexes normal - Psychiatric Psychiatric exam: Present: normal affect, normal mood - Skin Skin exam: Present: warm, dry, intact, normal color ED Course Vital Signs 12/25/21 12/25/21 18:06 20:02 Temperature 98.3 F Pulse Rate 79 Respiratory 20 Rate Blood Pressure 112/68 [Right] O2 Sat by Pulse 99 99 Oximetry ED Medical Decision Making - Medical Decision Making 36-year-old white female presents to the emergency department for evaluation of 2-week history of intermittent cough and few day history of left ear pain. She states that she started to have drainage from left ear about a week ago and she still having draining intermittently but now ear is painful to touch. She denies fever. She also complains of 2-week history of cough but denies shortness of breath. She states that cough is dry and it feels like she is just congested and unable to get the phlegm out. She states that she has taken [id number] Mucinex without improvement Exam consistent with left otitis externa and URI with cough and congestion. She will be treated with Medrol Dosepak, Tessalon Perles, and Bromfed along with Cortisporin solution for otitis externa. She is advised to take medications as prescribed and follow-up with primary care provider if no improvement or worsening symptoms. She verbalized understanding of and agreement with plan of care. Critical care attestation.: If time is entered above; I have spent that time in minutes in the direct care of this critically ill patient, excluding procedure time. ED Disposition Clinical Impression: URI with cough and congestion Otitis externa Qualifiers: Otitis externa type: unspecified type Chronicity: acute Laterality: left Qualified Code(s): H60.502 - Unspecified acute noninfective otitis externa, left ear Disposition: HOME / SELF CARE / HOMELESS Is pt being admited?: No Does the pt Need Aspirin: No Condition: Stable Instructions: Otitis Externa, [id number], Cough, Adult, [id number], Upper Respiratory Infection, Adult, [id number] Additional Instructions: Take medications as prescribed. Follow-up with primary care provider if no improvement or worsening symptoms. Prescriptions: Brompheniramine/Pseudoephed/Dm [Bromfed Dm Cough Syrup] 10 ml PO TID PRN #120 ml PRN Reason: Cough Neomy/Polymyx B/Hc (Otic) Soln [Cortisporin (Otic) Soln] 2 drops OTIC TID #1 bottle methylPREDNISolone [Medrol 4MG DOSEPAK (21 tabs)] 4 mg PO DAILY #1 pack Benzonatate [Tessalon Perles] 100 mg PO Q8HR #21 cap Referrals: ARLETH COOPER MD [Referring] - 3-5 Days Time of Disposition: 20:22
[2021-12-25 21:07] VITALS: BP 121/89
== END 2021-12-26 01:24 | disposition home or self-care (01) ==
LOC: ED 17:44
DX: H60.92 Unspecified otitis externa, left ear (principal); F41.9 Anxiety disorder, unspecified; F31.9 Bipolar disorder, unspecified; Z88.5 Allergy status to narcotic agent; Z88.8 Allergy status to other drugs, medicaments and biological substances; Z79.899 Other long term (current) drug therapy
CPT/HCPCS: 99282; J8540

== ENCOUNTER 2022-02-25 19:23 | Emergency (ER) | payer MEDICARE | END 2022-02-25 19:30 | disposition left against medical advice (07) | LOC: ED 19:23 | DX: T50.901A Poisoning by unspecified drugs, medicaments and biological substances, accidental (unintentional), initial encounter (principal); Z53.21 Procedure and treatment not carried out due to patient leaving prior to being seen by health care provider; Y92.89 Other specified places as the place of occurrence of the external cause ==

== ENCOUNTER 2022-03-05 05:22 | Emergency (ER) | payer MEDICARE ==
[2022-03-05 07:30] LABS: BUN/Creatinine Ratio 15; Blood Urea Nitrogen 12 mg/dL (7-17); Calcium 9.5 mg/dL (8.4-10.2); Hemolysis Index 2
[2022-03-05 07:32] LABS: Basophils # (Auto) 0.1 K/mm3 (0.0-0.1); Eosinophils % (Auto) 0.1 % (0.0-4.3); Hematocrit 31.7 % (30.3-42.9); Hemoglobin 9.7 gm/dl (10.1-14.3); Lymphocytes # (Auto) 1.4 K/mm3 (1.2-5.4); Lymphocytes % (Auto) 24.7 % (13.4-35.0); Mean Corpuscular HGB Conc 31 % (30-34); Mean Corpuscular Volume 75 fl (79-97); Monocytes # (Auto) 0.5 K/mm3 (0.0-0.8); Monocytes % (Auto) 9.2 % (0.0-7.3); Platelet Count 298 K/mm3 (140-440); Red Blood Count 4.21 M/mm3 (3.65-5.03); Red Cell Distribution Width 18.7 % (13.2-15.2)
[2022-03-05 07:34] LABS: Basophils % (Auto) 2.5 % (0.0-1.8)
[2022-03-05] MEDS ORDERED: diphenhydrAMINE 25 MG CAP PO ONE (08:35)
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
[2022-03-05 11:22] VITALS: BP 130/59
== END 2022-03-05 12:35 | disposition home or self-care (01) ==
LOC: ED 05:22
DX: F29 Unspecified psychosis not due to a substance or known physiological condition (principal); Z20.822 Contact with and (suspected) exposure to COVID-19; F17.200 Nicotine dependence, unspecified, uncomplicated
CPT/HCPCS: 36415; 80048; 84703; 85025; 99284; U0003; 80320; G0480

== ENCOUNTER 2022-03-07 10:53 | Emergency (ER) | payer MEDICARE ==
[2022-03-07 11:00] VITALS: BP 130/72
== END 2022-03-07 19:19 | disposition left against medical advice (07) ==
LOC: ED 10:53
DX: R51.9 Headache, unspecified (principal); H92.09 Otalgia, unspecified ear; Z53.21 Procedure and treatment not carried out due to patient leaving prior to being seen by health care provider; Y04.8XXA Assault by other bodily force, initial encounter; Y93.89 Activity, other specified; Y92.89 Other specified places as the place of occurrence of the external cause; Y99.8 Other external cause status